=== PATIENT | female | born 1945 | race Caucasian/White ===

== ENCOUNTER → 2017-08-17 10:20 | Outpatient (CLI) | payer MEDICARE, OTHER, SELFPAY ==
--- NOTE | 2017-08-17 | DI.MG.S_ITS ---
BILATERAL DIGITAL SCREENING MAMMOGRAM 3D/2D WITH CAD: 08/17/2017 CLINICAL: Routine screening. Family history of breast cancer. Comparison is made to exams dated: 08/02/2016 mammogram, 12/01/2014 mammogram, and 11/28/2013 mammogram - [facility]. There are scattered fibroglandular elements in both breasts. Current study was also evaluated with a Computer Aided Detection (CAD) system. No significant masses, calcifications, or other findings are seen in either breast. There has been no significant interval change. IMPRESSION: NEGATIVE There is no mammographic evidence of malignancy. A 1 year screening mammogram is recommended. This exam was interpreted at Station ID: [id number]. NOTE: For mammograms, a report in lay terms will be sent to the patient. Approximately 15% of breast malignancies will not be visualized mammographically. In the management of a palpable breast mass, a negative mammogram must not discourage biopsy of a clinically suspicious lesion. Electronically Signed By: Nahid charles/cheryl:08/17/2017 12:59:36 letter sent: Normal Exam ACR BI-RADS Category 1: Negative [id number]
== END ==
PROVIDERS: PCP Family Medicine; Visit Provider Family Medicine
DX: Z12.31 Encounter for screening mammogram for malignant neoplasm of breast (principal); Z80.3 Family history of malignant neoplasm of breast
CPT/HCPCS: 77063; 77067

== ENCOUNTER → 2017-08-21 11:37 | Outpatient (CLI) | payer MEDICARE, OTHER, SELFPAY | PROVIDERS: PCP Family Medicine; Visit Provider Physician Assistant Medical | DX: T78.3XXA Angioneurotic edema, initial encounter (principal) | CPT/HCPCS: 36415; 86160 ==

== ENCOUNTER → 2017-09-25 10:28 | Outpatient (CLI) | payer MEDICARE, OTHER, SELFPAY | PROVIDERS: PCP Family Medicine; Visit Provider Physician Assistant | DX: L81.4 Other melanin hyperpigmentation (principal); Z71.89 Other specified counseling; L30.9 Dermatitis, unspecified; B00.1 Herpesviral vesicular dermatitis; L57.0 Actinic keratosis; X32.XXXA Exposure to sunlight, initial encounter | CPT/HCPCS: 36415; 87529 ==

== ENCOUNTER → 2018-03-20 11:37 | Outpatient (CLI) | payer MEDICARE, OTHER, SELFPAY ==
[2018-03-20 12:56] LABS: BUN Creatinine Ratio 33.3 (6-22); Blood Urea Nitrogen 20 mg/dL (7-17); Calcium 10.3 mg/dL (8.4-10.2); Carbon Dioxide 31 mmol/L (22-32); Chloride 97 mmol/L (98-107); Estimated Glomerular Filt Rate > 60.0 mL/min (>60); Glucose 90 mg/dL (80-110); HEMOLYSIS < 15 (0-50); Potassium 5.3 mmol/L (3.4-5.1); Sodium 134 mmol/L (137-145)
[2018-03-20 13:13] LABS: Vitamin D 25 Hydroxy (D3) 39.2 ng/mL (30.0-100.0)
== END ==
PROVIDERS: PCP Student in an Organized Health Care Education/Training Program; Visit Provider Student in an Organized Health Care Education/Training Program
DX: E55.9 Vitamin D deficiency, unspecified (principal); E78.2 Mixed hyperlipidemia; Z79.1 Long term (current) use of non-steroidal anti-inflammatories (NSAID)
CPT/HCPCS: 36415; 80048; 82306

== ENCOUNTER → 2018-03-27 09:54 | Outpatient (CLI) | payer MEDICARE, OTHER, SELFPAY | PROVIDERS: PCP Student in an Organized Health Care Education/Training Program; Visit Provider Student in an Organized Health Care Education/Training Program | DX: Z13.820 Encounter for screening for osteoporosis (principal); M85.852 Other specified disorders of bone density and structure, left thigh; Z78.0 Asymptomatic menopausal state; E07.9 Disorder of thyroid, unspecified; Z12.11 Encounter for screening for malignant neoplasm of colon; Z91.89 Other specified personal risk factors, not elsewhere classified; Z79.899 Other long term (current) drug therapy | CPT/HCPCS: 77080; 82274 ==

== ENCOUNTER → 2018-09-02 11:53 | Outpatient (CLI) | payer MEDICARE, OTHER, SELFPAY ==
--- NOTE | 2018-09-02 | DI.MG.S_ITS ---
BILATERAL DIGITAL SCREENING MAMMOGRAM 3D/2D WITH CAD: 09/02/2018 CLINICAL: Routine screening. Family history of breast cancer. Comparison is made to exams dated: 08/17/2017 mammogram, 08/02/2016 mammogram, and 12/01/2014 mammogram - [facility]. There are scattered fibroglandular elements in both breasts. Current study was also evaluated with a Computer Aided Detection (CAD) system. No significant masses, calcifications, or other findings are seen in either breast. There has been no significant interval change. IMPRESSION: NEGATIVE There is no mammographic evidence of malignancy. A 1 year screening mammogram is recommended. This exam was interpreted at Station ID: [id number]. NOTE: For mammograms, a report in lay terms will be sent to the patient. Approximately 15% of breast malignancies will not be visualized mammographically. In the management of a palpable breast mass, a negative mammogram must not discourage biopsy of a clinically suspicious lesion. Electronically Signed By: Anisha villegas/cheryl:09/02/2018 17:34:04 letter sent: Normal Exam ACR BI-RADS Category 1: Negative [id number]
== END ==
PROVIDERS: PCP Student in an Organized Health Care Education/Training Program; Visit Provider Student in an Organized Health Care Education/Training Program
DX: Z12.31 Encounter for screening mammogram for malignant neoplasm of breast (principal); Z80.3 Family history of malignant neoplasm of breast
CPT/HCPCS: 77063; 77067

== ENCOUNTER → 2018-10-10 07:23 | Outpatient (CLI) | payer MEDICARE, OTHER, SELFPAY ==
[2018-10-10 09:23] LABS: Alanine Aminotransferase 14 IU/L (9-52); Albumin 3.8 g/dL (3.5-5.0); Albumin Globulin Ratio 1.2 (1.0-2.8); Alkaline Phosphatase 68 U/L (38-126); Aspartate Aminotransferase 25 IU/L (14-36); Bilirubin Total 0.4 mg/dL (0.2-1.3); Blood Urea Nitrogen 16 mg/dL (7-17); Calcium 9.3 mg/dL (8.4-10.2); Carbon Dioxide 27 mmol/L (22-32); Chloride 97 mmol/L (98-107); Cholesterol 194 mg/dL (140-199); Estimated Glomerular Filt Rate > 60.0 mL/min (>60); Globulin 3.1 g/dL (1.7-4.1); Glucose 86 mg/dL (80-110); HDL Cholesterol 82 mg/dL (40-60); HEMOLYSIS < 15 (0-50); LDL Cholesterol Calculated 97 mg/dL (<100); Potassium 3.6 mmol/L (3.4-5.1); Sodium 135 mmol/L (137-145); Total Protein 6.9 g/dL (6.3-8.2); Triglycerides 73 mg/dL (35-150)
== END ==
PROVIDERS: PCP Student in an Organized Health Care Education/Training Program; Visit Provider Internal Medicine Cardiovascular Disease
DX: E78.00 Pure hypercholesterolemia, unspecified (principal)
CPT/HCPCS: 36415; 80053; 80061

== ENCOUNTER → 2019-01-06 10:05 | Outpatient (CLI) | payer MEDICARE, OTHER, SELFPAY ==
--- NOTE | 2019-01-06 | DI.MRI.S_ITS ---
PROCEDURE: MR BRAIN (IAC) WWO CON INDICATIONS: Right sided hearing loss. Tinnintis TECHNIQUE: Noncontrast sagittal T1 spin echo, axial FLAIR, axial gradient echo, axial diffusion and ADC through the brain. Axial thin-slice 3D CISS, coronal TruFISP, axial T1 spin echo with fat saturation through the internal auditory canals. After the administration of contrast, thin slice axial and coronal T1 spin echo with fat saturation through the internal auditory canals, and axial T1 spin echo with fat saturation through the brain. COMPARISON: None. FINDINGS: Image quality: Excellent. Cerebellopontine angles: No cerebellopontine angle masses. Inner ear structures appear normally formed. No suspicious enhancement in the internal auditory canal or along the course of the 7th cranial nerve. CSF spaces: Ventricles are normal in size and shape. No extra-axial fluid collections. Basal cisterns are patent. Brain: No intracranial bleeds or mass effects. Scattered small white matter changes, probably represent chronic microvascular ischemic disease, versus statistically less likely demyelination or other infectious, inflammatory, neurodegenerative etiology, technically nonspecific. As Ortiz-white matter interface is intact. No abnormal intracranial enhancement. Diffusion weighted images demonstrate no acute ischemic insults. Brainstem appears normal. Normal intravascular flow voids are present. Skull and face: Calvarial marrow signal is normal. Orbits appear normal. Sinuses: Sinuses and mastoids are clear. IMPRESSION: No discrete mass or suspicious abnormal enhancement involving the IAC or cerebellopontine angles bilaterally. Dictated by: Sandoval Hutchinson M.D. on 01/06/2019 at 11:31 Approved by: Sandoval Hutchinson M.D. on 01/06/2019 at 11:37
== END ==
PROVIDERS: PCP Student in an Organized Health Care Education/Training Program; Visit Provider Otolaryngology Facial Plastic Surgery
DX: H93.13 Tinnitus, bilateral (principal); H90.5 Unspecified sensorineural hearing loss
CPT/HCPCS: 70553; A9579

== ENCOUNTER → 2019-09-22 07:16 | Outpatient (CLI) | payer MEDICARE, OTHER, SELFPAY ==
[2019-09-22 08:35] LABS: BUN Creatinine Ratio 26.3 (6-22); Blood Urea Nitrogen 15 mg/dL (7-17); Calcium 9.7 mg/dL (8.4-10.2); Carbon Dioxide 30 mmol/L (22-32); Chloride 95 mmol/L (98-107); Estimated Glomerular Filt Rate > 60.0 mL/min (>60); Glucose 90 mg/dL (80-110); HEMOLYSIS < 15 (0-50); Potassium 5.3 mmol/L (3.4-5.1); Sodium 132 mmol/L (137-145)
== END ==
PROVIDERS: PCP Student in an Organized Health Care Education/Training Program; Referring Provider Student in an Organized Health Care Education/Training Program; Visit Provider Student in an Organized Health Care Education/Training Program
DX: E87.5 Hyperkalemia (principal); I10 Essential (primary) hypertension
CPT/HCPCS: 36415; 80048

== ENCOUNTER 2020-01-17 14:16 | Emergency (ER) | payer MEDICARE, OTHER, SELFPAY ==
[2020-01-17 14:20] VITALS: BP 168/82; PULSE 91; RESP 18; TEMP 37.1; O2SAT 99
--- NOTE | 2020-01-17 14:30 | DI.RAD.S_ITS ---
PROCEDURE: XR CHEST 1V INDICATIONS: chest pain TECHNIQUE: One view of the chest was acquired. COMPARISON: [facility], , CHEST 1 VIEW, 01/03/2016, 9:43. FINDINGS: Surgical changes and devices: None. Lungs and pleura: Lungs are clear. No pleural effusions or pneumothorax. Mediastinum: Moderate hiatal hernia. Mediastinal contours otherwise appear normal. Heart size is normal. Bones and chest wall: No suspicious bony lesions. Overlying soft tissues appear unremarkable. IMPRESSION: No acute process. Hiatal hernia. Dictated by: Lc Barroso M.D. on 01/17/2020 at 14:43 Approved by: Lc Barroso M.D. on 01/17/2020 at 14:43
--- NOTE | 2020-01-17 14:36 | ED.ARRPALP ---
HPI - Arrhythmia/Palpitations General Chief Complaint: Arrhythmia/Palpitations Stated Complaint: NAUSEATED, LOW PULSE, BACK PAIN Time Seen by Provider: 01/17/20 14:19 History of Present Illness HPI narrative: 74-year-old woman with a history of hypertension and prior irregular heart rate, hyperlipidemia, reflux, hypothyroidism and arthritis presents with a was out of symptoms that are concerning her. The symptoms are waxing and waning and include weakness while she was walking 1st noticed last Sunday the following day she felt fine. She is noticing a significantly bloated abdomen and decreased appetite decreased intake but has gained a couple of lb. She notes a retic blood pressures and pulse however oxygen saturations have remained above 95%. She states that she is not short of breath however she is mildly dyspneic with her history. Today she is feeling more nauseated and of fluttery feeling in the upper portion of her chest without any overt chest pain or abdominal pain. She does not report fevers, chills, wheezes, orthopnea or lower extremity edema. No vomiting, no diarrhea no abdominal pain. Yesterday she describes some pressure in her head neck, she does note a history of migraines and has not had as many headaches recently. She notes that she has chronic neck and left arm pain so has not associated any left arm pain with any of the other symptoms of which she is complaining. Related Data Previous Rx's Medication Instructions Recorded levothyroxine 100 mcg tablet 100 mcg PO QDAY #90 tab 02/21/19 meloxicam 7.5 mg tablet 7.5 mg PO DAILY PRN #90 tab 02/21/19 uaeplksvqq-hierhswnfksdc-fvcwaqfv 2 tab PO QDAY PRN #30 tab 03/11/19 50 mg-325 mg-40 mg tablet chlorthalidone 25 mg tablet 25 mg PO DAILY #90 tab 03/11/19 omeprazole 40 mg capsule,delayed 40 mg PO DAILY #90 cap 03/11/19 release simvastatin 10 mg tablet 10 mg PO HS #90 tab 03/11/19 verapamil 180 mg tablet,extended 360 mg PO DAILY #180 tab 03/11/19 release metoprolol tartrate 12.5 mg PO .BID prn #30 tab 01/17/20 Allergies Allergy/AdvReac Type Severity Reaction Status Date / Time No Known Drug Allergies Allergy Verified 03/11/19 10:01 Review of Systems Review of Systems Narrative: Remainder of review of systems including constitutional, ENT, cardiovascular, respiratory, GI, , musculoskeletal, skin, neurologic and psychiatric systems reviewed and are unremarkable except as noted in HPI. Patient History Medical History Actinic keratosis Diverticular disease Gluten enteropathy Hyperlipidemia Hypertension Hypothyroidism Migraines Surgical History Status post endoscopy (06/19/13) Status post ovarian cystectomy (~1969) Family History Mother No problems noted. Social History marital status: education level: college occupational status: other (retired) Smoking Status: Never smoker Smoking Status: Never smoker Exam Narrative Exam Narrative: General: Healthy appearing, mildly anxious but in no acute distress. Able to give a complete and coherent history. Well-nourished well-developed HEENT: Moist mucous membranes, normal sclera with reactive pupils, Neck: No JVD, supple Respiratory: Lungs are clear to auscultation, no wheezing no rales no rhonchi. Full and symmetrical air movement Cardiac: Irregular rhythm no murmurs no bruits Abdomen: Soft, nontender, report of nondistended, good bowel tones, no flank pain Skin: Warm and dry, no rashes Neurologic: Grossly neurologically intact with no obvious asymmetries or abnormalities Extremities: No trauma, well perfused, no lower extremity edema Psych: Cooperative, appropriate insight and affect Initial Vital Signs Initial Vital Signs: Vital Signs Temperature 98.7 F 01/17/20 14:20 Pulse Rate 91 H 01/17/20 14:20 Respiratory Rate 18 01/17/20 14:20 Blood Pressure 168/82 H 01/17/20 14:20 Pulse Oximetry 99 01/17/20 14:20 Course Orders Ordered: ED Orders 01/17/20 14:29 Complete Blood Count AUTO DIFF Stat Comprehensive Metabolic Panel Stat D Dimer Stat Lipase Stat Magnesium Stat NT-proBNP (BNP-Adult 18+) Stat Partial Thromboplastin Time Stat Prothrombin Time INR Stat Thyroid Stimulating Hormone Stat Troponin & CK Cardiac Panel Stat 01/17/20 14:30 XR chest 1V Stat COVID19 Stat EKG-12 Lead Stat Discontinued Medications Metoprolol Tartrate (Metoprolol Ir 25 Mg Tablet) 12.5 mg PO NOW ONE Stop: 01/17/20 16:11 Vital Signs Vital signs: Vital Signs - 8 hr 01/17/20 14:20 Temperature 98.7 F Pulse Rate 91 H Respiratory Rate 18 Blood Pressure 168/82 H Pulse Oximetry 99 MDM - Arrhythmia/Palpitations Medical Records Attestation: I reviewed the patient's medical records. Lab Data Attestation: I reviewed the patient's lab results. Result diagrams: 01/17/20 14:29 01/17/20 14:29 Labs: Lab Results 01/17/20 01/17/20 01/17/20 Range/Units 14:29 14:29 14:29 WBC 9.8 (4.5-11.0) X10^3/uL RBC 4.41 (4.0-5.2) X10^6/uL Hgb 13.5 (12.0-16.0) g/dL Hct 41.6 (36-46) % MCV 94.3 (80-100) fL MCH 30.7 (26-34) PG MCHC 32.6 (30-36) % RDW 13.1 (11.6-14.8) % Plt Count 274 (150-400) X10^3/uL Neut % (Auto) 63.0 (50-75) % Lymph % (Auto) 25.1 (25-40) % [place] % (Auto) 7.9 (3-14) % Eos % (Auto) 3.4 (2-4) % Baso % (Auto) 0.6 (0-2) % Neut # (Auto) 6100 (5024-5927) /uL Lymph # (Auto) 2400 (0745-8303) /uL Miffl[place] # (Auto) 800 (0-900) /uL Eos # (Auto) 300 (0-450) /uL Baso # (Auto) 100 (0-100) /uL PT 11.5 (10.1-12.7) SECONDS INR 1.0 (0.9-1.3) APTT 29 (26.4-36.2) SECONDS D-Dimer (<230) ng/mL Sodium 130 L (137-145) mmol/L Potassium 5.3 H (3.4-5.1) mmol/L Chloride 100 (98-107) mmol/L Carbon Dioxide 21 L (22-32) mmol/L BUN 19 H (7-17) mg/dL Creatinine 0.69 (0.52-1.04) mg/dL Estimated GFR > 60.0 (>60) mL/min BUN/Creatinine Ratio 27.5 H (6-22) Glucose 118 H (80-110) mg/dL Calcium 9.7 (8.4-10.2) mg/dL Magnesium (1.6-2.3) mg/dL Total Bilirubin 1.1 (0.2-1.3) mg/dL AST 49 H (14-36) IU/L ALT 22 (<35) IU/L Alkaline Phosphatase 66 (38-126) U/L Total Creatine Kinase 99 (30-135) U/L CK-MB (CK-2) TNP CK-MB (CK-2) Rel Index TNP Troponin I < 0.012 (0.01-0.034) ng/mL NT-Pro-B Natriuret Pep (<450) pg/mL Total Protein 8.1 (6.3-8.2) g/dL Albumin 4.7 (3.5-5.0) g/dL Globulin 3.4 (1.7-4.1) g/dL Albumin/Globulin Ratio 1.4 (1.0-2.8) Lipase 81 (23-300) U/L TSH (0.47-4.68) uIU/mL COVID-19 PCR (Negative) 01/17/20 01/17/20 01/17/20 Range/Units 14:29 14:29 14:29 WBC (4.5-11.0) X10^3/uL RBC (4.0-5.2) X10^6/uL Hgb (12.0-16.0) g/dL Hct (36-46) % MCV (80-100) fL MCH (26-34) PG MCHC (30-36) % RDW (11.6-14.8) % Plt Count (150-400) X10^3/uL Neut % (Auto) (50-75) % Lymph % (Auto) (25-40) % [place]fl[place] % (Auto) (3-14) % Eos % (Auto) (2-4) % Baso % (Auto) (0-2) % Neut # (Auto) (1239-1059) /uL Lymph # (Auto) (6219-4271) /uL Mifflin # (Auto) (0-900) /uL Eos # (Auto) (0-450) /uL Baso # (Auto) (0-100) /uL PT (10.1-12.7) SECONDS INR (0.9-1.3) APTT (26.4-36.2) SECONDS D-Dimer < 200 (<230) ng/mL Sodium (137-145) mmol/L Potassium (3.4-5.1) mmol/L Chloride (98-107) mmol/L Carbon Dioxide (22-32) mmol/L BUN (7-17) mg/dL Creatinine (0.52-1.04) mg/dL Estimated GFR (>60) mL/min BUN/Creatinine Ratio (6-22) Glucose (80-110) mg/dL Calcium (8.4-10.2) mg/dL Magnesium (1.6-2.3) mg/dL Total Bilirubin (0.2-1.3) mg/dL AST (14-36) IU/L ALT (<35) IU/L Alkaline Phosphatase (38-126) U/L Total Creatine Kinase (30-135) U/L CK-MB (CK-2) CK-MB (CK-2) Rel Index Troponin I (0.01-0.034) ng/mL NT-Pro-B Natriuret Pep 631 H (<450) pg/mL Total Protein (6.3-8.2) g/dL Albumin (3.5-5.0) g/dL Globulin (1.7-4.1) g/dL Albumin/Globulin Ratio (1.0-2.8) Lipase (23-300) U/L TSH 2.51 (0.47-4.68) uIU/mL COVID-19 PCR (Negative) 01/17/20 01/17/20 Range/Units 14:29 14:30 WBC (4.5-11.0) X10^3/uL RBC (4.0-5.2) X10^6/uL Hgb (12.0-16.0) g/dL Hct (36-46) % MCV (80-100) fL MCH (26-34) PG MCHC (30-36) % RDW (11.6-14.8) % Plt Count (150-400) X10^3/uL Neut % (Auto) (50-75) % Lymph % (Auto) (25-40) % Mifflin % (Auto) (3-14) % Eos % (Auto) (2-4) % Baso % (Auto) (0-2) % Neut # (Auto) (5728-8604) /uL Lymph # (Auto) (4743-2046) /uL Mifflin # (Auto) (0-900) /uL Eos # (Auto) (0-450) /uL Baso # (Auto) (0-100) /uL PT (10.1-12.7) SECONDS INR (0.9-1.3) APTT (26.4-36.2) SECONDS D-Dimer (<230) ng/mL Sodium (137-145) mmol/L Potassium (3.4-5.1) mmol/L Chloride (98-107) mmol/L Carbon Dioxide (22-32) mmol/L BUN (7-17) mg/dL Creatinine (0.52-1.04) mg/dL Estimated GFR (>60) mL/min BUN/Creatinine Ratio (6-22) Glucose (80-110) mg/dL Calcium (8.4-10.2) mg/dL Magnesium 1.9 (1.6-2.3) mg/dL Total Bilirubin (0.2-1.3) mg/dL AST (14-36) IU/L ALT (<35) IU/L Alkaline Phosphatase (38-126) U/L Total Creatine Kinase (30-135) U/L CK-MB (CK-2) CK-MB (CK-2) Rel Index Troponin I (0.01-0.034) ng/mL NT-Pro-B Natriuret Pep (<450) pg/mL Total Protein (6.3-8.2) g/dL Albumin (3.5-5.0) g/dL Globulin (1.7-4.1) g/dL Albumin/Globulin Ratio (1.0-2.8) Lipase (23-300) U/L TSH (0.47-4.68) uIU/mL COVID-19 PCR Negative (Negative) Imaging Data Chest x-ray: Radiologist's Impresson: FINDINGS: Surgical changes and devices: None. Lungs and pleura: Lungs are clear. No pleural effusions or pneumothorax. Mediastinum: Moderate hiatal hernia. Mediastinal contours otherwise appear normal. Heart size is normal. Bones and chest wall: No suspicious bony lesions. Overlying soft tissues appear unremarkable. IMPRESSION: No acute process. Hiatal hernia. Dictated by: Lc Barroso M.D. on 01/17/2020 at 14:43 ECG Data Attestation: I personally reviewed and interpreted this ECG as follows: Interpretation: Underlying rhythm is sinus at a rate of 84 Frequent PVCs, episodes of bigeminy, PVC triplets Nonspecific ST T wave changes Normal axis No acute ischemia MDM Narrative Medical decision making narrative: 72-year-old woman with 2 weeks of increasing palpitations. EKG shows frequent PVCs but no life-threatening abnormalities. No evidence of infection, significant failure, ischemic cardiac issues or acute coronary syndrome, no renal failure and no evidence of pulmonary embolism. Potassium was slightly elevated however renal function was reassuring and she is on chlorthalidone. Will have her add 12.5 mg of metoprolol tartrate b.i.d. as needed to control palpitations. We did review side effects of hypotension and bradycardia and she does have follow-up with her primary care physician scheduled later this week. She is safe for home discharge Discharge Plan Departure Patient Disposition: Home Clinical Impression: Palpitations Instructions: DI for Palpitations Activity Restrictions/Additional Instructions: Thank you for coming in today Your workup was very reassuring. You are having very frequent PVCs (premature ventricular contractions). This is not a life-threatening heart rhythm problem. It can be distracting and certainly cause the fluttery feeling you are experiencing. I am going to suggest that you use half a pill, 12.5 mg, of metoprolol, a beta-candie, to suppress the frequent PVCs. You can take this twice a day if your having frequent PVCs. If your feeling great you do not need to take it. It is a blood pressure medications so if you find that your blood pressure or your heart rate is too slow please do not continue this. Please discuss this with Dr. carmona with your follow-up appointment next week. With your workup I found no evidence of heart attack,, heart failure, kidney failure liver failure or other issues that need to be addressed. Your thyroid level is in the appropriate ranges. Please feel free to return if your having any chest pain, nausea, dizziness and if you have any more of that weakness that you felt 2 weeks ago it would be appropriate to return to the emergency room to have an EKG done in see if you are in a different type of heart rhythm. I hope you feel better. Prescriptions: New metoprolol tartrate 25 mg tablet 12.5 mg PO .BID prn Qty: 30 RF: 0 No Action meloxicam [Mobic] 7.5 mg tablet 7.5 mg PO DAILY PRN (Reason: pain) Qty: 90 RF: 3 levothyroxine 100 mcg tablet 100 mcg PO QDAY Qty: 90 RF: 3 omeprazole 40 mg capsule,delayed release(DR/EC) 40 mg PO DAILY Qty: 90 RF: 3 simvastatin 10 mg tablet 10 mg PO HS Qty: 90 RF: 3 chlorthalidone 25 mg tablet 25 mg PO DAILY Qty: 90 RF: 3 verapamil 180 mg tablet extended release 360 mg PO DAILY Qty: 180 RF: 3 pavwnsbaah-eblguoblvclcg-lqcy 50-325-40 mg tablet 2 tab PO QDAY PRN (Reason: pain) Qty: 30 RF: 5 Referrals: Raffy Marrero MD [Primary Care Provider] -
[2020-01-17 14:39] LABS: Add Manual Diff / Slide Review NO; Basophils Absolute Auto 100 /uL (0-100); Basophils Percent Auto 0.6 % (0-2); Eosinophils Absolute Auto 300 /uL (0-450); Eosinophils Percent Auto 3.4 % (2-4); Hematocrit 41.6 % (36-46); Hemoglobin 13.5 g/dL (12.0-16.0); Lymphocytes Absolute Auto 2400 /uL (1100-4500); Lymphocytes Percent Auto 25.1 % (25-40); Mean Corpuscular HGB Conc 32.6 % (30-36); Mean Corpuscular Hemoglobin 30.7 PG (26-34); Mean Corpuscular Volume 94.3 fL (80-100); Monocytes Absolute Auto 800 /uL (0-900); Monocytes Percent Auto 7.9 % (3-14); Neutrophils Absolute Auto 6100 /uL (1500-7000); Platelet Count 274 X10^3/uL (150-400); Red Blood Cell Count 4.41 X10^6/uL (4.0-5.2); Red Cell Distribution Width 13.1 % (11.6-14.8); White Blood Cell Count 9.8 X10^3/uL (4.5-11.0)
[2020-01-17 15:01] LABS: NT-proBNP (BNP-Adult 18+) 631 pg/mL (<450)
[2020-01-17 15:04] LABS: Troponin I < 0.012 ng/mL (0.01-0.034)
[2020-01-17 15:07] LABS: COVID19 -Nasal RAPID Negative (Negative)
[2020-01-17 15:13] LABS: D Dimer < 200 ng/mL (<230)
[2020-01-17 15:20] LABS: Prothrombin Time 11.5 SECONDS (10.1-12.7)
[2020-01-17 15:23] LABS: PTT Partial Thromboplastin Tim 29 SECONDS (26.4-36.2)
[2020-01-17 15:27] LABS: Alanine Aminotransferase 22 IU/L (<35); Albumin 4.7 g/dL (3.5-5.0); Albumin Globulin Ratio 1.4 (1.0-2.8); Alkaline Phosphatase 66 U/L (38-126); Aspartate Aminotransferase 49 IU/L (14-36); BUN Creatinine Ratio 27.5 (6-22); Bilirubin Total 1.1 mg/dL (0.2-1.3); Blood Urea Nitrogen 19 mg/dL (7-17); Calcium 9.7 mg/dL (8.4-10.2); Carbon Dioxide 21 mmol/L (22-32); Chloride 100 mmol/L (98-107); Creatine Kinase 99 U/L (30-135); Estimated Glomerular Filt Rate > 60.0 mL/min (>60); Globulin 3.4 g/dL (1.7-4.1); Glucose 118 mg/dL (80-110); HEMOLYSIS 218 (0-50); Lipase 81 U/L (23-300); Potassium 5.3 mmol/L (3.4-5.1); Sodium 130 mmol/L (137-145); Total Protein 8.1 g/dL (6.3-8.2)
[2020-01-17 15:28] LABS: Magnesium 1.9 mg/dL (1.6-2.3)
[2020-01-17 15:31] LABS: Thyroid Stimulating Hormone 2.51 uIU/mL (0.47-4.68)
[2020-01-17] MEDS: METOPROLOL IR 25 MG TABLET 12.5 MG PO (16:20)
[2020-01-17 16:34] VITALS: BP 142/81; PULSE 69; RESP 14; O2SAT 95
== END 2020-01-17 16:43 | disposition home or self-care (01) ==
PROVIDERS: Emergency Provider Emergency Medicine; PCP Student in an Organized Health Care Education/Training Program
DX: R00.2 Palpitations (principal); E87.5 Hyperkalemia; I10 Essential (primary) hypertension; E78.5 Hyperlipidemia, unspecified; K21.9 Gastro-esophageal reflux disease without esophagitis; E03.9 Hypothyroidism, unspecified; R11.0 Nausea; R07.9 Chest pain, unspecified
CPT/HCPCS: 36415; 71045; 80053; 82550; 83690; 83735; 83880; 84443; 84484; 85025; 85379; 85610; 85730; 87635; 93005; 99283; 99284

== ENCOUNTER → 2020-02-19 07:55 | Outpatient (CLI) | payer MEDICARE, OTHER, SELFPAY ==
--- NOTE | 2020-02-19 07:56 | DI.ECHO.S_ITS ---
Version: 1 Study ID: [id number] [place] [address] Name: JOANN HERBRET Study Date: 02/19/2020, 8: 16 AM : 1945 BP: 167 / 110 mmHg Gender: Female Height: 67 in Age: 74 Years Weight: 160 lb BSA: 1.84 mA? Ordering: LINA BROWN Referring: LINA BROWN Clinician: Chyna Garay Reason For Study: VOLUME OVERLOAD History: Summary Statements Normal sinus rhythm with occasional PVC's. Normal LV size, wall thickness. Mild global hypokinesis. EF is 45-50%. Stage II diastolic dysfunction. Mild LA enlargement; otherwise normal chamber sizes. No significant valvular abnormalities. Compared to prior study in 2016 cardiomyopathy is new. Procedure: A two-dimensional transthoracic echocardiogram with color flow and Doppler was performed. The study quality was technically adequate. Comparison is made with the echocardiogram of 12/15/2015. The patient was in sinus rhythm with heart rates between 64-84 bpm during the exam. Left Ventricle: The left ventricle is normal in size and wall thickness. The ejection fraction is estimated to be 45-50%. Diastolic parameters suggest a pseudonormalization pattern, consistent with probable elevated filling pressures. Right Ventricle: The right ventricle is normal in size and function. Atria: The left atrium is mildly dilated. Right atrial size is normal. There is no Doppler evidence for an interatrial shunt. Mitral Valve: There is mild mitral annular calcification. The mitral valve leaflets appear mildly thickened, but open well. There is mild to moderate mitral regurgitation. Aortic Valve: The aortic valve is trileaflet. The aortic valve opens well. There is no aortic valve stenosis. There is mild aortic regurgitation. Tricuspid Valve: The tricuspid valve is normal in structure and function. There is mild tricuspid regurgitation. The right ventricular systolic pressure is estimated to be at least 40 mmHg based on an estimated right atrial pressure of 3 mm Hg. Pulmonic Valve: The pulmonic valve leaflets are thin and pliable; valve motion is normal. There is trace pulmonic regurgitation. Great Vessels: The aortic root is normal size. The ascending aorta is mildly enlarged. The IVC is of normal diameter and collapses greater than 50% with a sniff. This suggests a low right atrial pressure of 3 mm Hg. Pericardium/ Pleura: There is no pericardial effusion. There is no pleural effusion. 2D and M-Mode Measurements and Calculations LVIDd: 5.3 cm LVOT diam: 2.05 cm LVIDs: 4.0 cm Ao root diam: 3.6 cm IVSd: 0.82 cm asc Aorta Diam: 3.5 cm LVPWd: 0.77 cm Ao Arch Diam (Prox Trans): 3.3 cm LV miller. diameter/BSA (cm/m^2): 2.9 LV sys. diameter/BSA (cm/m^2): 2.16 EPSS: 0.83 cm RVD1 (basal): 3.0 cm IVC diam: 1.44 cm TAPSE: 2.00 cm LA A4 area: 18.6 awake overnight counselor? RA area: 19.6 awake overnight counselor? LA A2 area: 23.6 awake overnight counselor? RA long axis: 5.6 cm LA length (vol): 4.8 cm RA vol: 57.8 ml LA vol: 77.8 ml RA : 31.5 ml/mA? LA vol index: 42.3 ml/mA? Doppler Measurements and Calculations Ao V2 max: 108.7 cm/sec LVOT Max Gael: 81.9 cm/sec Ao V2 mean: 76.8 cm/sec LV V1 max P.7 mmHg Ao V2 VTI: 21.9 cm LV V1 VTI: 17.8 cm Ao max P.7 mmHg Ao mean P.7 mmHg GREG(I,D): 2.7 awake overnight counselor? GREG(V,D): 2.49 awake overnight counselor? GREG indexed to BSA (cm^2/m^2): 1.46 sev ratio: 0.81 MV E max gael: 67.0 cm/sec MV dec time: 0.17 sec MV A max gael: 92.8 cm/sec MV E/A: 0.72 Med Peak E' Gael: 3.3 cm/sec Lat Peak E' Gael: 4.1 cm/sec E/e' average: 18.1 TR max gael: 304.2 cm/sec PA V2 max: 47.7 cm/sec TR max P.0 mmHg PA mean P.48 mmHg Electronically signed by: Patti Perez M.D. 02/20/2020, 12: 59 AM
== END ==
PROVIDERS: PCP Student in an Organized Health Care Education/Training Program; Referring Provider Student in an Organized Health Care Education/Training Program; Visit Provider Student in an Organized Health Care Education/Training Program
DX: I08.3 Combined rheumatic disorders of mitral, aortic and tricuspid valves (principal); I77.89 Other specified disorders of arteries and arterioles; E87.70 Fluid overload, unspecified
CPT/HCPCS: 93306

== ENCOUNTER → 2020-02-25 13:17 | Outpatient (CLI) | payer MEDICARE, OTHER, SELFPAY ==
[2020-02-25 13:26] LABS: Bacteria Urine None Seen
[2020-02-25 14:05] LABS: Appearance Urine UA CLEAR; Bilirubin Urine UA NEGATIVE (NEGATIVE); Color Urine UA YELLOW; Glucose Urine UA NEGATIVE (Negative); Ketones Urine UA NEGATIVE (NEGATIVE); Leukocyte Esterase Urine UA NEGATIVE (NEGATIVE); Nitrite Urine UA NEGATIVE (Negative); Occult Blood Urine UA NEGATIVE (Negative); Protein Urine UA NEGATIVE (Negative); Urobilinogen Urine UA 0.2 E.U./dL (0.2)
[2020-02-25 14:20] LABS: Culture Indicated Urine Cult Not Indicated; RBC Urine 0-1/HPF (0-5/HPF); WBC Urine 0-1/HPF (0-5/HPF)
== END ==
PROVIDERS: PCP Student in an Organized Health Care Education/Training Program; Referring Provider Student in an Organized Health Care Education/Training Program; Visit Provider Student in an Organized Health Care Education/Training Program
DX: R39.15 Urgency of urination (principal)
CPT/HCPCS: 81001

== ENCOUNTER → 2020-02-27 07:36 | Outpatient (CLI) | payer MEDICARE, OTHER, SELFPAY ==
--- NOTE | 2020-02-27 07:37 | DI.US.S_ITS ---
PROCEDURE: US ABDOMEN COMPLETE INDICATIONS: ABDOMINAL DISTENTION TECHNIQUE: Real-time scanning was performed of the abdominal and retroperitoneal organs, with image documentation. COMPARISON: [facility], CT, ABDOMEN/PELVIS WITH CONTRAST, 11/08/2012, 10:59. [facility], US, US PELVIC COMPLETE, 02/27/2020, 8:08. FINDINGS: Liver: Liver is normal in size. Several right liver simple cysts are seen, which measure up to 2.2 cm. Gallbladder: No findings of gallstones or sludge are seen. The gallbladder wall is not thickened, measuring 3 mm or less. No specific pericholecystic fluid is seen. The sonographic Cartwright sign is negative. Biliary ducts: Intrahepatic bile ducts are non-dilated. Extrahepatic bile duct caliber measures 3 mm. Normal is 6-7 mm or less in diameter, or 10 mm or less post-cholecystectomy. Pancreas: Visualized portions of the pancreas are sonographically normal. Spleen: Spleen is normal in size and homogeneous in echotexture. Kidneys: Kidneys are normal in size and echotexture. Right kidney measures 10.8 cm long; left kidney measures 10 cm long. No hydronephrosis or nephrolithiasis. No solid masses. The right kidney demonstrates a lobular appearance. Aorta: Visualized aorta is normal in caliber at less than 3 cm. Iliacs: Proximal common iliac arteries are normal in caliber at less than 2.5 cm. IVC: Intrahepatic inferior vena cava is patent. Miscellaneous: No free abdominal fluid. IMPRESSION: No imaging explanation is found for this patient's presenting symptoms. Incidental note is made of: Simple appearing right liver cysts Lobular appearing right kidney, without masses Dictated by: Lino Osman M.D. on 02/27/2020 at 9:43 Approved by: Lino Osman M.D. on 02/27/2020 at 9:45
--- NOTE | 2020-02-27 07:37 | DI.US.S_ITS ---
PROCEDURE: US PELVIC COMPLETE INDICATIONS: ABDOMINAL DISTENTION TECHNIQUE: Real-time scanning was performed of the pelvic organs, with image documentation. Additional endovaginal scanning was necessary due to incomplete visualization of the adnexal and endometrial structures by transabdominal scanning. COMPARISON: [facility], CT, ABDOMEN/PELVIS WITH CONTRAST, 11/08/2012, 10:59. [facility], US, US ABDOMEN COMPLETE, 02/27/2020, 8:07. FINDINGS: Transabdominal scanning: No pathologic free abdominal or pelvic fluid. On the accompanying abdominal ultrasound, the kidneys demonstrate a normal appearance. Endovaginal scanning: Uterus: Uterus is normal in size at 5.1 x 4.4 x 2.7 cm. The endometrium measures 3 mm in combined thickness. Incidental note is made of nabothian cysts. Ovaries: The right ovary measures 4.3 x 2.6 x 2.5 cm and demonstrates simple cysts that measure up to 1.4 cm. Normal appearing arterial and venous flow is confirmed to the right ovary. The left ovary has been removed. No adnexal masses are seen on either side. IMPRESSION: Unremarkable study for age, status post left oophorectomy. Dictated by: Lino Osman M.D. on 02/27/2020 at 9:45 Approved by: Lino Osman M.D. on 02/27/2020 at 9:47
== END ==
PROVIDERS: PCP Student in an Organized Health Care Education/Training Program; Referring Provider Student in an Organized Health Care Education/Training Program; Visit Provider Student in an Organized Health Care Education/Training Program
DX: I49.3 Ventricular premature depolarization (principal); E87.1 Hypo-osmolality and hyponatremia; R14.0 Abdominal distension (gaseous); E87.79 Other fluid overload; R10.9 Unspecified abdominal pain
CPT/HCPCS: 36415; 76700; 76830; 76856; 80048; 83930

== ENCOUNTER → 2020-02-27 08:53 | Outpatient (CLI) | payer MEDICARE, OTHER, SELFPAY ==
[2020-02-27 10:50] LABS: BUN Creatinine Ratio 21.9 (6-22); Blood Urea Nitrogen 16 mg/dL (7-17); Calcium 9.3 mg/dL (8.4-10.2); Carbon Dioxide 30 mmol/L (22-32); Chloride 99 mmol/L (98-107); Estimated Glomerular Filt Rate > 60.0 mL/min (>60); Glucose 89 mg/dL (80-110); HEMOLYSIS < 15 (0-50); Sodium 131 mmol/L (137-145)
[2020-03-01 16:43] LABS: Osmolality, Serum 282 mOsmol/kg (280-301)
== END ==
PROVIDERS: PCP Student in an Organized Health Care Education/Training Program; Referring Provider Student in an Organized Health Care Education/Training Program; Visit Provider Internal Medicine Cardiovascular Disease
DX: I49.3 Ventricular premature depolarization (principal); E87.1 Hypo-osmolality and hyponatremia
CPT/HCPCS: 36415; 80048; 83930

== ENCOUNTER → 2020-03-13 09:32 | Outpatient (CLI) | payer MEDICARE, OTHER, SELFPAY ==
[2020-03-13 10:43] LABS: COVID19 -Nasal RAPID Negative (Negative)
== END ==
PROVIDERS: PCP Student in an Organized Health Care Education/Training Program; Visit Provider Physician Assistant
DX: Z20.822 Contact with and (suspected) exposure to COVID-19 (principal)
CPT/HCPCS: 87635; C9803

== ENCOUNTER → 2020-03-26 09:33 | Outpatient (CLI) | payer MEDICARE, OTHER, SELFPAY | PROVIDERS: PCP Student in an Organized Health Care Education/Training Program; Referring Provider Student in an Organized Health Care Education/Training Program; Visit Provider Student in an Organized Health Care Education/Training Program | DX: Z13.820 Encounter for screening for osteoporosis (principal); M85.88 Other specified disorders of bone density and structure, other site; Z78.0 Asymptomatic menopausal state; E07.9 Disorder of thyroid, unspecified | CPT/HCPCS: 77080 ==

== ENCOUNTER → 2020-04-22 16:36 | Outpatient (CLI) | payer MEDICARE, OTHER, SELFPAY ==
--- NOTE | 2020-04-22 | DI.MRI.S_ITS ---
PROCEDURE: MR LUMBAR SPINE WO CON INDICATIONS: Radiculopathy, lumbar region TECHNIQUE: Noncontrast sagittal T1 spin echo and T2 fast echo, sagittal STIR, axial T1 and T2 fast spin echo through the lumbar spine. In cases with scoliosis, additional coronal T2 fast spin echo may be performed. COMPARISON: [facility], CT, ABDOMEN/PELVIS WITH CONTRAST, 11/08/2012, 10:59. [facility], MR, L-SPINE WITHOUT CONTRAST, 08/20/2012, 15:18. FINDINGS: Image quality: Excellent. Alignment and Curvature: 1/2 anterolisthesis of L4 on L5 measuring 9 mm, increased from 4 mm on prior exam. There is unchanged grade 1 retrolisthesis, ranging from 1-3 mm of L1 on L2, L2 on L3, L3 on L4 and grade 1 retrolisthesis, 2 mm of L5 on S1. Bone Marrow: Marrow is of normal overall signal. Moderate reactive endplate changes are present at L4-5 as well as mild at L2-3. Marrow changes at L4-5 are noted to surround endplate Schmorl's nodes. Additional Schmorl's nodes are noted at multilevel endplates most prominent at L2 and L3. No acute vertebral body compression fractures. Spinal Cord: Conus medullaris terminates at the L1 level. Visualized cord demonstrates normal signal and size. Paraspinous Soft Tissues: No paravertebral masses. Discs: Moderate to severe desiccation is present throughout the lumbar spine. L1-L2: Mild disc bulge without spinal stenosis. Mild left and moderate right foraminal narrowing with facet and ligamentum flavum hypertrophy. Minimal epidural lipomatosis. No appreciable interval change. L2-L3: Mild disc bulge with mild spinal stenosis. Moderate bilateral foraminal narrowing with slight interval progression particularly on the left compared to prior exam. Facet and ligamentum flavum hypertrophy are present with minimal epidural lipomatosis. L3-L4: Mild disc bulge with moderate spinal stenosis. Moderate bilateral foraminal narrowing, minimally progressive compared to prior exam. Facet and ligamentum flavum hypertrophy are present. L4-L5: Mild disc bulge with severe spinal stenosis and canal compression. Severe left and moderate to severe right foraminal narrowing, progressive on the right compared to prior exam. Facet and ligamentum flavum hypertrophy are present. L5-S1: Mild disc bulge with xuyg-wm-dqbdqoqz spinal stenosis, slightly progressive. There is moderate bilateral foraminal narrowing, slightly progressive with facet and ligamentum flavum hypertrophy. IMPRESSION: 1. Grade 1/2 anterolisthesis of L4 on L5, increased compared to prior exam. No definitive pars defect is identified. 2. Multilevel degenerative changes with minimal areas of interval progression noted above. 3. Multilevel foraminal narrowing most severe at L4-5 secondary to anterolisthesis as well as facet/ligamentum flavum arthropathy. Dictated by: Janette Barnes M.D. on 04/23/2020 at 10:34 Approved by: Janette Barnes M.D. on 04/23/2020 at 10:49
== END ==
PROVIDERS: PCP Student in an Organized Health Care Education/Training Program; Referring Provider Neurological Surgery; Visit Provider Neurological Surgery
DX: M47.26 Other spondylosis with radiculopathy, lumbar region (principal); M48.061 Spinal stenosis, lumbar region without neurogenic claudication; M43.16 Spondylolisthesis, lumbar region
CPT/HCPCS: 72148

== ENCOUNTER → 2020-05-17 07:15 | Outpatient (CLI) | payer MEDICARE, OTHER, SELFPAY ==
[2020-05-17 08:16] LABS: Cholesterol 263 mg/dL (140-199); HDL Cholesterol 87 mg/dL (40-60); LDL Cholesterol Calculated 155 mg/dL (<100); Triglycerides 105 mg/dL (35-150)
== END ==
PROVIDERS: PCP Student in an Organized Health Care Education/Training Program; Referring Provider Internal Medicine Cardiovascular Disease; Visit Provider Internal Medicine Cardiovascular Disease
DX: E78.00 Pure hypercholesterolemia, unspecified (principal)
CPT/HCPCS: 36415; 80061

== ENCOUNTER → 2020-07-05 16:39 | Outpatient (CLI) | payer MEDICARE, OTHER, SELFPAY ==
--- NOTE | 2020-07-05 | DI.MG.S_ITS ---
BILATERAL DIGITAL SCREENING MAMMOGRAM 3D/2D WITH CAD: 07/05/2020 CLINICAL: Routine screening. Family history of breast cancer. Comparison is made to exams dated: 09/02/2018 mammogram, 08/17/2017 mammogram, and 08/02/2016 mammogram - [facility]. There are scattered fibroglandular elements in both breasts. Current study was also evaluated with a Computer Aided Detection (CAD) system. No significant masses, calcifications, or other findings are seen in either breast. There has been no significant interval change. IMPRESSION: NEGATIVE There is no mammographic evidence of malignancy. A 1 year screening mammogram is recommended. This exam was interpreted at Station ID: [id number]. NOTE: For mammograms, a report in lay terms will be sent to the patient. Approximately 15% of breast malignancies will not be visualized mammographically. In the management of a palpable breast mass, a negative mammogram must not discourage biopsy of a clinically suspicious lesion. Electronically Signed By: Huey urias/cheryl:07/06/2020 07:38:42 letter sent: Normal Exam ACR BI-RADS Category 1: Negative [id number]
== END ==
PROVIDERS: PCP Student in an Organized Health Care Education/Training Program; Referring Provider Student in an Organized Health Care Education/Training Program; Visit Provider Student in an Organized Health Care Education/Training Program
DX: Z12.31 Encounter for screening mammogram for malignant neoplasm of breast (principal); Z80.3 Family history of malignant neoplasm of breast
CPT/HCPCS: 77063; 77067

== ENCOUNTER → 2020-08-04 08:38 | Outpatient (CLI) | payer MEDICARE, OTHER, SELFPAY | PROVIDERS: PCP Student in an Organized Health Care Education/Training Program; Visit Provider Physician Assistant | DX: N39.0 Urinary tract infection, site not specified (principal) | CPT/HCPCS: 87077; 87086; 87185; 87186 ==

== ENCOUNTER → 2020-08-23 07:22 | Outpatient (CLI) | payer MEDICARE, OTHER, SELFPAY ==
[2020-08-23 09:52] LABS: BUN Creatinine Ratio 41.5 (6-22); Blood Urea Nitrogen 22 mg/dL (7-17); Calcium 9.5 mg/dL (8.4-10.2); Carbon Dioxide 29 mmol/L (22-32); Chloride 97 mmol/L (98-107); Estimated Glomerular Filt Rate > 60.0 mL/min (>60); Glucose 89 mg/dL (80-110); HEMOLYSIS < 15 (0-50); Potassium 3.6 mmol/L (3.4-5.1); Sodium 133 mmol/L (137-145)
== END ==
PROVIDERS: PCP Student in an Organized Health Care Education/Training Program; Referring Provider Internal Medicine Cardiovascular Disease; Visit Provider Internal Medicine Cardiovascular Disease
DX: R00.2 Palpitations (principal); I49.3 Ventricular premature depolarization
CPT/HCPCS: 36415; 80048

== ENCOUNTER → 2020-09-13 14:27 | Outpatient (CLI) | payer MEDICARE, OTHER, SELFPAY ==
[2020-09-13 15:26] LABS: BUN Creatinine Ratio 44.2 (6-22); Blood Urea Nitrogen 23 mg/dL (7-17); Calcium 9.2 mg/dL (8.4-10.2); Carbon Dioxide 26 mmol/L (22-32); Chloride 98 mmol/L (98-107); Estimated Glomerular Filt Rate > 60.0 mL/min (>60); Glucose 101 mg/dL (80-110); HEMOLYSIS < 15 (0-50); Potassium 3.8 mmol/L (3.4-5.1); Sodium 130 mmol/L (137-145)
== END ==
PROVIDERS: PCP Student in an Organized Health Care Education/Training Program; Referring Provider Internal Medicine Cardiovascular Disease; Visit Provider Internal Medicine Cardiovascular Disease
DX: I49.3 Ventricular premature depolarization (principal)
CPT/HCPCS: 36415; 80048

== ENCOUNTER → 2020-10-26 07:35 | Outpatient (CLI) | payer MEDICARE, OTHER, SELFPAY ==
[2020-10-26 09:24] LABS: BUN Creatinine Ratio 35.8 (6-22); Blood Urea Nitrogen 19 mg/dL (7-17); Calcium 9.1 mg/dL (8.4-10.2); Carbon Dioxide 27 mmol/L (22-32); Chloride 98 mmol/L (98-107); Estimated Glomerular Filt Rate > 60.0 mL/min (>60); Glucose 93 mg/dL (80-110); HEMOLYSIS < 15 (0-50); Potassium 3.7 mmol/L (3.4-5.1); Sodium 130 mmol/L (137-145)
== END ==
PROVIDERS: PCP Student in an Organized Health Care Education/Training Program; Referring Provider Internal Medicine Cardiovascular Disease; Visit Provider Internal Medicine Cardiovascular Disease
DX: I10 Essential (primary) hypertension (principal)
CPT/HCPCS: 36415; 80048

== ENCOUNTER → 2021-01-13 07:07 | Outpatient (CLI) | payer MEDICARE, OTHER, SELFPAY ==
[2021-01-13 08:25] LABS: Sodium Urine Random 110 mmol/L (30-90)
[2021-01-13 08:27] LABS: BUN Creatinine Ratio 38.3 (6-22); Blood Urea Nitrogen 23 mg/dL (7-17); Calcium 9.3 mg/dL (8.4-10.2); Carbon Dioxide 26 mmol/L (22-32); Chloride 102 mmol/L (98-107); Estimated Glomerular Filt Rate > 60.0 mL/min (>60); Glucose 92 mg/dL (80-110); HEMOLYSIS < 15 (0-50); Magnesium 1.9 mg/dL (1.6-2.3); Potassium 4.7 mmol/L (3.4-5.1); Sodium 136 mmol/L (137-145)
== END ==
PROVIDERS: PCP Student in an Organized Health Care Education/Training Program; Referring Provider Student in an Organized Health Care Education/Training Program; Visit Provider Student in an Organized Health Care Education/Training Program
DX: I10 Essential (primary) hypertension (principal); E87.1 Hypo-osmolality and hyponatremia; T50.2X5A Adverse effect of carbonic-anhydrase inhibitors, benzothiadiazides and other diuretics, initial encounter
CPT/HCPCS: 36415; 80048; 83735; 84300

== ENCOUNTER → 2021-07-07 09:10 | Outpatient (CLI) | payer MEDICARE, OTHER, SELFPAY ==
[2021-07-07 12:10] LABS: Vitamin B12 Reflex MMA if <400 979 pg/mL (239-931)
== END ==
PROVIDERS: PCP Student in an Organized Health Care Education/Training Program; Referring Provider Student in an Organized Health Care Education/Training Program; Visit Provider Student in an Organized Health Care Education/Training Program
DX: E03.9 Hypothyroidism, unspecified (principal); K21.9 Gastro-esophageal reflux disease without esophagitis; R53.83 Other fatigue
CPT/HCPCS: 36415; 82607

== ENCOUNTER 2021-07-22 19:17 | Emergency (ER) | payer MEDICARE, OTHER, SELFPAY ==
[2021-07-22] VITALS (7 sets, daily range): BP systolic 132–179; BP diastolic 79–118; PULSE 82–94; RESP 18–22; TEMP 36.6; O2SAT 97–100; BMI 25.0
--- NOTE | 2021-07-22 19:35 | DI.RAD.S_ITS ---
PROCEDURE: XR CHEST 1V INDICATIONS: chest pain TECHNIQUE: One view of the chest was acquired. COMPARISON: [facility], CR, XR CHEST 1V, 01/17/2020, 14:31. FINDINGS: Surgical changes and devices: None. Lungs and pleura: Lungs are clear. No pleural effusions or pneumothorax. Mediastinum: There is a moderate-sized hiatal hernia. Heart size is normal. Bones and chest wall: No suspicious bony lesions. Overlying soft tissues appear unremarkable. IMPRESSION: 1. No acute cardiopulmonary disease. Dictated by: Ryan Harris M.D. on 07/22/2021 at 20:11 Approved by: Ryan Harris M.D. on 07/22/2021 at 20:11
[2021-07-22 19:54] LABS: Add Manual Diff / Slide Review NO; Basophils Absolute Auto 0 /uL (0-100); Basophils Percent Auto 0.6 % (0-2); Eosinophils Absolute Auto 300 /uL (0-450); Eosinophils Percent Auto 3.5 % (2-4); Hematocrit 26.9 % (36-46); Hemoglobin 8.5 g/dL (12.0-16.0); Lymphocytes Absolute Auto 2400 /uL (1100-4500); Lymphocytes Percent Auto 28.4 % (25-40); Mean Corpuscular HGB Conc 31.6 % (30-36); Mean Corpuscular Hemoglobin 24.4 PG (26-34); Mean Corpuscular Volume 77.4 fL (80-100); Monocytes Absolute Auto 800 /uL (0-900); Neutrophils Absolute Auto 4800 /uL (1500-7000); Neutrophils Percent Auto 57.5 % (50-75); Platelet Count 390 X10^3/uL (150-400); Red Blood Cell Count 3.47 X10^6/uL (4.0-5.2); White Blood Cell Count 8.3 X10^3/uL (4.5-11.0)
[2021-07-22 20:10] LABS: Alanine Aminotransferase 12 IU/L (<35); Albumin 4.1 g/dL (3.5-5.0); Albumin Globulin Ratio 1.3 (1.0-2.8); Alkaline Phosphatase 64 U/L (38-126); Aspartate Aminotransferase 22 IU/L (14-36); BUN Creatinine Ratio 30.6 (6-22); Bilirubin Total 0.2 mg/dL (0.2-1.3); Blood Urea Nitrogen 22 mg/dL (7-17); Calcium 8.8 mg/dL (8.4-10.2); Carbon Dioxide 22 mmol/L (22-32); Chloride 101 mmol/L (98-107); Creatine Kinase 45 U/L (30-135); Estimated Glomerular Filt Rate > 60 mL/min (>60); Globulin 3.1 g/dL (1.7-4.1); Glucose 100 mg/dL (80-110); HEMOLYSIS < 15 (0-50); Lipase 99 U/L (23-300); Magnesium 2.2 mg/dL (1.6-2.3); Potassium 4.2 mmol/L (3.4-5.1); Sodium 132 mmol/L (137-145); Total Protein 7.2 g/dL (6.3-8.2)
[2021-07-22 20:22] LABS: Troponin I < 0.012 ng/mL (0.01-0.034)
--- NOTE | 2021-07-22 20:38 | ED_ITS ---
HPI - General Adult General Chief complaint: Dizziness Stated complaint: Dizzy, lightheaded, erratic pulse/BP Time Seen by Provider: 07/22/21 19:47 Source: patient Mode of arrival: Ambulatory Limitations: no limitations History of Present Illness HPI narrative: 76-year-old female. She states she is under the care of cardiology for bradycardia. Yesterday she was told to stop her flecainide is she has had issues with dizziness and shortness of breath with exertion. States she occasionally feels like her heart rate is high and then low. She does feel lightheaded. Has not passed out. She states she was feeling this way today and her kraft digester operator's office told her that she should come the emergency department for evaluation. She denies chest pain. No swelling in her lower extremities. Related Data Home Medications Medication Instructions Recorded Confirmed flecainide 50 mg tablet 50 mg PO Q12H 12/08/20 03/22/21 Previous Rx's Medication Instructions Recorded wrvkpxfllf-sdwsniivcmkot-vetbhfic 2 tab PO QDAY PRN pain #10 tabs 01/24/21 50 mg-325 mg-40 mg tablet levothyroxine 100 mcg tablet 100 mcg PO QDAY #90 tabs 03/22/21 meloxicam 7.5 mg tablet (Mobic) 7.5 mg PO DAILY PRN pain #90 tabs 03/22/21 metoprolol tartrate 25 mg tablet 25 mg PO BID palpitations #180 tabs 04/01/21 omeprazole 20 mg capsule,delayed 20 mg PO DAILY #90 caps 04/20/21 release Allergies Allergy/AdvReac Type Severity Reaction Status Date / Time amlodipine AdvReac Mild Edema Verified 05/02/21 10:24 Review of Systems Review of Systems ROS Unobtainable: All systems reviewed & are unremarkable except as noted in HPI and below Patient History Medical History Actinic keratosis Allergy to shrimp (04/22/15) Cutaneous candidiasis Diverticular disease Gluten enteropathy Hyperlipidemia Hypertension Hypothyroidism Migraines Unilateral hearing loss Surgical History S/P laminectomy with spinal fusion Status post endoscopy (06/19/13) Status post ovarian cystectomy (~1970) Family History Mother No problems noted. Social History marital status: education level: college occupational status: other Smoking Status: Never smoker Smoking Status: Never smoker alcohol intake frequency: 0-2 drinks per day Alcohol type: wine Substance Use Type: does not use Exam Initial Vital Signs Initial Vital Signs: Vital Signs Pulse Rate 94 H 07/22/21 19:31 Pulse Oximetry 100 07/22/21 19:31 Const General: cooperative, comfortable and well developed HENMT Head: normal to inspection and normocephalic Resp Effort & Inspection: normal respiratory effort Auscultation: clear to auscultation bilaterally Cardio Rate: regular rate Rhythm: regular rhythm GI Inspection: normal to inspection Skin General: no rashes or lesions noted Neuro General: patient alert, patient awake and moves all extremities Extrem General: normal to inspection and capillary refill normal Psych Appearance: grossly normal and well kempt Course Orders Ordered: ED Orders 07/22/21 19:35 XR chest 1V Stat EKG-12 Lead Stat 07/22/21 19:36 Complete Blood Count AUTO DIFF Stat Comprehensive Metabolic Panel Stat Lipase Stat Magnesium Stat TSH [Thyroid Stimulating Hormone] Stat Troponin & CK Cardiac Panel Stat Vital Signs Vital signs: Vital Signs - 8 hr 07/22/21 19:42 07/22/21 19:31 07/22/21 19:32 Temperature 97.8 F Pulse Rate 82 94 H Respiratory Rate 22 Blood Pressure 132/79 132/79 Pulse Oximetry 100 100 Oxygen Delivery Method Room Air 07/22/21 19:32 07/22/21 19:56 07/22/21 19:56 Temperature Pulse Rate 89 88 Respiratory Rate Blood Pressure 151/91 H Pulse Oximetry 99 98 Oxygen Delivery Method 07/22/21 20:00 07/22/21 20:00 07/22/21 20:30 Temperature Pulse Rate 83 Respiratory Rate Blood Pressure 136/84 176/81 H Pulse Oximetry 97 Oxygen Delivery Method 07/22/21 20:30 07/22/21 21:00 07/22/21 21:00 Temperature Pulse Rate 92 H 83 Respiratory Rate 18 Blood Pressure 179/118 H Pulse Oximetry 97 98 Oxygen Delivery Method Medical Decision Making Lab Data Lab results reviewed: Yes I reviewed the patient's lab results. Result diagrams: 07/22/21 19:36 07/22/21 19:36 Labs: Lab Results 07/22/21 07/22/21 07/22/21 Range/Units 19:36 19:36 19:36 WBC 8.3 (4.5-11.0) X10^3/uL RBC 3.47 L (4.0-5.2) X10^6/uL Hgb 8.5 L (12.0-16.0) g/dL Hct 26.9 L (36-46) % MCV 77.4 L (80-100) fL MCH 24.4 L (26-34) PG MCHC 31.6 (30-36) % RDW 17.0 H (11.6-14.8) % Plt Count 390 (150-400) X10^3/uL Neut % (Auto) 57.5 (50-75) % Lymph % (Auto) 28.4 (25-40) % Trinity % (Auto) 10.0 (3-14) % Eos % (Auto) 3.5 (2-4) % Baso % (Auto) 0.6 (0-2) % Neut # (Auto) 4800 (3458-2640) /uL Lymph # (Auto) 2400 (8745-4240) /uL Trinity # (Auto) 800 (0-900) /uL Eos # (Auto) 300 (0-450) /uL Baso # (Auto) 0 (0-100) /uL Sodium 132 L (137-145) mmol/L Potassium 4.2 (3.4-5.1) mmol/L Chloride 101 (98-107) mmol/L Carbon Dioxide 22 (22-32) mmol/L BUN 22 H (7-17) mg/dL Creatinine 0.72 (0.52-1.04) mg/dL Estimated GFR > 60 (>60) mL/min BUN/Creatinine Ratio 30.6 H (6-22) Glucose 100 (80-110) mg/dL Calcium 8.8 (8.4-10.2) mg/dL Magnesium 2.2 (1.6-2.3) mg/dL Total Bilirubin 0.2 (0.2-1.3) mg/dL AST 22 (14-36) IU/L ALT 12 (<35) IU/L Alkaline Phosphatase 64 (38-126) U/L Total Creatine Kinase 45 (30-135) U/L CK-MB (CK-2) TNP CK-MB (CK-2) Rel Index TNP Troponin I < 0.012 (0.01-0.034) ng/mL Total Protein 7.2 (6.3-8.2) g/dL Albumin 4.1 (3.5-5.0) g/dL Globulin 3.1 (1.7-4.1) g/dL Albumin/Globulin Ratio 1.3 (1.0-2.8) Lipase 99 (23-300) U/L TSH 1.65 (0.47-4.68) uIU/mL Imaging Data Chest x-ray: Radiologist's Impression: [address] [address] XRay Report Signed Patient: Lul Anderson MR#: [id number] : 1945 Acct:[id number] Age/Sex: 76 / F Date of Service: 07/22/21 Loc: ED Accession Number: [id number] ?? Procedure: XR chest 1V Ordering Provider: Matt Bermudez D.O. PROCEDURE:? XR CHEST 1V ? INDICATIONS:? chest pain ? TECHNIQUE:? One view of the chest was acquired.? ? COMPARISON:? [facility], , XR CHEST 1V, 01/17/2020, 14:31. ? FINDINGS:? ? Surgical changes and devices:? None.? ? Lungs and pleura:? Lungs are clear.? No pleural effusions or pneumothorax.? ? Mediastinum:? There is a moderate-sized hiatal hernia.? Heart size is normal.? ? Bones and chest wall:? No suspicious bony lesions.? Overlying soft tissues appear unremarkable.? ? IMPRESSION:? ? 1.? No acute cardiopulmonary disease. ? ? ? Dictated by: Ryan Harris M.D. on 07/22/2021 at 20:11 ? ? Approved by: Ryan Harris M.D. on 07/22/2021 at 20:11 ECG Data Attestation: I personally reviewed and interpreted this ECG as follows: Interpretation: Sinus rhythm Ventricular rate is 74 Frequent PVCs Normal QRS No ST T wave changes MDM Narrative Medical decision making narrative: Patient's symptoms she presents with today are not new. She is under the care of cardiology for this. She recently had a change to some of her medications. Patient's H&H today is low. It is lower than her last lab draw which was year ago. Patient has been getting most of her labs drawn at her facility. She was able to pull these labs up on her patient chart however all of these labs over the past year have been chemistries. There is no CBCs noted. Unsure whether not this H&H today is new. She is not reporting any vomiting. No dark colored stools. We did discuss possibly having a blood transfusion to see if this does not help her symptoms however I feel that the risks right now hallway the benefits as we are unsure as to whether not it could potentially be recent changes in medicines that could be causing her symptoms. The patient agrees with this and would like to hold on any transfusions for now. She is having frequent PACs and PVCs while on the monitor here in the ER. These are relatively asymptomatic for her. No fevers. Her thyroid is unremarkable today. Plan to be is to have her continue all of her medications as directed on Sunday she will contact her kraft digester operator for follow-up. She was given return precautio ns. She expressed understanding and agreed with plan. Discharge Plan Departure Patient Disposition: Home Clinical Impression: Anemia Instructions: Anemia Activity Restrictions/Additional Instructions: I do recommend that you take your medications like we discussed. On Sunday contact your kraft digester operator for a follow-up. Return to the emergency department for any new or worsening symptoms. Prescriptions: No Action flecainide 50 mg tablet 50 mg PO Q12H baedlesvax-qurcydkibujgm-zpcj 50-325-40 mg tablet 2 tab PO QDAY PRN (Reason: pain) Qty: 10 5RF metoprolol tartrate 25 mg tablet 25 mg PO BID Qty: 180 3RF omeprazole 20 mg capsule,delayed release(DR/EC) 20 mg PO DAILY Qty: 90 3RF Hold Instructions: Trial of 20mg Rx Instructions: Take one capsule by mouth once a day. levothyroxine 100 mcg tablet 100 mcg PO QDAY Qty: 90 3RF meloxicam [Mobic] 7.5 mg tablet 7.5 mg PO DAILY PRN (Reason: pain) Qty: 90 3RF Referrals: Raffy Marrero MD [Primary Care Provider] - Visit Report Forms: Patient Portal/API
[2021-07-22 21:34] LABS: Thyroid Stimulating Hormone 1.65 uIU/mL (0.47-4.68)
== END 2021-07-22 21:29 | disposition home or self-care (01) ==
PROVIDERS: Emergency Provider Emergency Medicine; PCP Student in an Organized Health Care Education/Training Program
DX: D64.9 Anemia, unspecified (principal); R07.9 Chest pain, unspecified; R06.02 Shortness of breath
CPT/HCPCS: 36415; 71045; 80053; 82550; 83690; 83735; 84443; 84484; 85025; 93005; 93010; 99284

== ENCOUNTER → 2021-07-25 10:38 | Outpatient (CLI) | payer MEDICARE, OTHER, SELFPAY ==
[2021-07-25 11:36] LABS: Appearance Urine UA CLEAR; Bilirubin Urine UA NEGATIVE (NEGATIVE); Color Urine UA YELLOW; Glucose Urine UA NEGATIVE (Negative); Ketones Urine UA NEGATIVE (NEGATIVE); Leukocyte Esterase Urine UA NEGATIVE (NEGATIVE); Nitrite Urine UA NEGATIVE (Negative); Occult Blood Urine UA NEGATIVE (Negative); Protein Urine UA TRACE (Negative); Urobilinogen Urine UA 0.2 E.U./dL (0.2)
[2021-07-25 11:37] LABS: pH Urine UA 6.5 (4.5-8.0)
[2021-07-25 11:42] LABS: Bacteria Urine None Seen; Culture Indicated Urine Cult Not Indicated; Hyaline Casts Urine 1-5/LPF; Mucus Urine 2+ (Negative); RBC Urine None Seen (0-5/HPF); WBC Urine None Seen (0-5/HPF)
[2021-07-25 11:43] LABS: Hematocrit 28.4 % (36-46); Hemoglobin 8.9 g/dL (12.0-16.0); Reticulocyte Count, Percent 2.9 % (1.1-2.6)
[2021-07-25 12:21] LABS: HEMOLYSIS < 15 (0-50); Iron 366 ug/dL (37-170)
[2021-07-25 12:23] LABS: Lactate Dehydrogenase 366 U/L (313-618)
[2021-07-25 12:37] LABS: Total Iron Binding Capacity 404 ug/dL (265-497); Transferrin 306 mg/dL (206-381)
[2021-07-25 12:39] LABS: Percent Iron Saturation 91 % (15-50)
[2021-07-25 12:58] LABS: Ferritin 10 ng/mL (11-264)
[2021-07-25 13:29] LABS: Folate 15.6 ng/mL (2.76-20.0)
== END ==
PROVIDERS: PCP Student in an Organized Health Care Education/Training Program; Referring Provider Student in an Organized Health Care Education/Training Program; Visit Provider Student in an Organized Health Care Education/Training Program
DX: D50.9 Iron deficiency anemia, unspecified (principal); R10.30 Lower abdominal pain, unspecified
CPT/HCPCS: 36415; 81001; 82728; 82746; 83540; 83550; 83615; 85014; 85018; 85045

== ENCOUNTER → 2021-08-01 10:02 | Outpatient (CLI) | payer MEDICARE, OTHER, SELFPAY ==
--- NOTE | 2021-08-01 11:41 | DI.CT.S_ITS ---
PROCEDURE: CT ABDOMEN PELVIS W CON INDICATIONS: Lower abdominal pain TECHNIQUE: After the administration of oral and IV contrast, axial sections were acquired from the lung bases to the pubic symphysis. Coronal and sagittal reformats were performed. For radiation dose reduction, the following was used: automated exposure control, adjustment of mA and/or kV according to patient size. COMPARISON: [facility], MR, MR LUMBAR SPINE WO CON, 04/22/2020, 17:00. [facility], CT, ABDOMEN/PELVIS WITH CONTRAST, 11/08/2012, 10:59. FINDINGS: Image quality: Excellent. Lung bases: No pleural effusion. Heart: No significant findings. Moderate hiatal hernia. ABDOMEN: Liver: Well-circumscribed hepatic hypodensities are similar to 2013 and likely benign cysts. Gallbladder: Not distended. Possible small calcified layering gallstone. Biliary ducts: Unremarkable. Pancreas: Unremarkable. Spleen: Unremarkable. Adrenal Glands: Minimal adrenal thickening bilaterally. Kidneys and Ureters: No hydronephrosis. Small simple appearing cyst in the left kidney. Stomach and Bowel: Stomach, small bowel loops, and colon are unremarkable. Small duodenal diverticulum. Diverticulosis. No diverticulitis identified. Normal appendix. Peritoneum: No abnormal intraperitoneal fluid. No free air. Ventral Wall: No hernia. Abdominal Nodes: No retroperitoneal or mesenteric adenopathy by size criteria. Vessels: Aorta and inferior vena cava are normal in size. Moderate calcified plaque. PELVIS: Pelvic Organs: Anteverted uterus. Bladder: No stones. Pelvic Nodes: No enlarged lymph nodes. Miscellaneous: No inguinal hernias are seen. Bones: L4-L5 pedicle screw fixation with intervertebral body spacer. There is anterolisthesis of L4 on L5 measuring 0.8 cm. There is multilevel DDD. No compression fracture. No suspicious lesion. IMPRESSION: 1. Diverticulosis. No diverticulitis identified. No free fluid. 2. No small bowel obstruction. 3. Moderate hiatal hernia. Dictated by: Maikel Lynne M.D. on 08/01/2021 at 12:04 Approved by: Maikel Lynne M.D. on 08/01/2021 at 12:14
== END ==
PROVIDERS: PCP Student in an Organized Health Care Education/Training Program; Referring Provider Student in an Organized Health Care Education/Training Program; Visit Provider Student in an Organized Health Care Education/Training Program
DX: R10.30 Lower abdominal pain, unspecified (principal); D50.9 Iron deficiency anemia, unspecified; K44.9 Diaphragmatic hernia without obstruction or gangrene; K57.10 Diverticulosis of small intestine without perforation or abscess without bleeding; K57.90 Diverticulosis of intestine, part unspecified, without perforation or abscess without bleeding; N28.1 Cyst of kidney, acquired
CPT/HCPCS: 74177

== ENCOUNTER → 2021-08-17 10:30 | Outpatient (CLI) | payer MEDICARE, OTHER, SELFPAY ==
[2021-08-18 08:06] LABS: Fecal Immunochemical Test Negative (Negative)
== END ==
PROVIDERS: PCP Student in an Organized Health Care Education/Training Program; Referring Provider Student in an Organized Health Care Education/Training Program; Visit Provider Student in an Organized Health Care Education/Training Program
DX: Z12.11 Encounter for screening for malignant neoplasm of colon (principal); D50.9 Iron deficiency anemia, unspecified
CPT/HCPCS: 82274

== ENCOUNTER → 2021-10-27 13:08 | Outpatient (CLI) | payer MEDICARE, OTHER, SELFPAY ==
[2021-10-27 13:31] LABS: Basophils Absolute Auto 0 /uL (0-100); Basophils Percent Auto 0.9 % (0-2); Eosinophils Absolute Auto 200 /uL (0-450); Eosinophils Percent Auto 4.4 % (2-4); Hematocrit 33.5 % (36-46); Lymphocytes Absolute Auto 1300 /uL (1100-4500); Lymphocytes Percent Auto 23.9 % (25-40); Mean Corpuscular HGB Conc 32.8 % (30-36); Mean Corpuscular Hemoglobin 28.3 PG (26-34); Mean Corpuscular Volume 86.3 fL (80-100); Monocytes Absolute Auto 400 /uL (0-900); Monocytes Percent Auto 6.7 % (3-14); Neutrophils Absolute Auto 3400 /uL (1500-7000); Neutrophils Percent Auto 64.1 % (50-75); Platelet Count 311 X10^3/uL (150-400); Red Blood Cell Count 3.89 X10^6/uL (4.0-5.2); Red Cell Distribution Width 22.9 % (11.6-14.8); White Blood Cell Count 5.3 X10^3/uL (4.5-11.0)
[2021-10-27 13:33] LABS: Add Manual Diff / Slide Review SLIDE REVIEW
[2021-10-27 14:03] LABS: Anisocytosis 2+; RBC Morphology See
[2021-10-27 14:11] LABS: Iron 59 ug/dL (37-170)
[2021-10-27 14:18] LABS: Ferritin 72 ng/mL (11-264)
[2021-10-27 14:22] LABS: Total Iron Binding Capacity 255 ug/dL (265-497)
[2021-10-28 07:31] LABS: Percent Iron Saturation 23 % (15-50)
== END ==
PROVIDERS: Internal Medicine Medical Oncology; PCP Student in an Organized Health Care Education/Training Program; Referring Provider Nurse Practitioner Family; Visit Provider Nurse Practitioner Family
DX: D50.9 Iron deficiency anemia, unspecified (principal)
CPT/HCPCS: 36415; 82728; 83540; 83550; 85025

== ENCOUNTER 2021-11-08 00:39 | Emergency (ER) | payer MEDICARE, OTHER, SELFPAY ==
[2021-11-08] VITALS (11 sets, daily range): BP systolic 167–220; BP diastolic 84–120; PULSE 60–91; RESP 12–19; TEMP 36.6; O2SAT 96–99; BMI 25.0
[2021-11-08 01:31] LABS: Alanine Aminotransferase 20 IU/L (<35); Albumin Globulin Ratio 1.3 (1.0-2.8); Alkaline Phosphatase 72 U/L (38-126); Aspartate Aminotransferase 28 IU/L (14-36); BUN Creatinine Ratio 39.7 (6-22); Bilirubin Total 0.2 mg/dL (0.2-1.3); Blood Urea Nitrogen 23 mg/dL (7-17); Calcium 8.9 mg/dL (8.4-10.2); Carbon Dioxide 23 mmol/L (22-32); Chloride 102 mmol/L (98-107); Creatine Kinase 42 U/L (30-135); Estimated Glomerular Filt Rate > 60 mL/min (>60); Globulin 3.1 g/dL (1.7-4.1); Glucose 106 mg/dL (80-110); HEMOLYSIS < 15 (0-50); Potassium 4.4 mmol/L (3.4-5.1); Sodium 134 mmol/L (137-145); Total Protein 7.1 g/dL (6.3-8.2)
[2021-11-08 01:33] LABS: Basophils Absolute Auto 100 /uL (0-100); Basophils Percent Auto 0.7 % (0-2); Eosinophils Absolute Auto 500 /uL (0-450); Hematocrit 35.4 % (36-46); Hemoglobin 11.6 g/dL (12.0-16.0); Lymphocytes Absolute Auto 1600 /uL (1100-4500); Lymphocytes Percent Auto 17.6 % (25-40); Mean Corpuscular HGB Conc 32.7 % (30-36); Mean Corpuscular Hemoglobin 28.6 PG (26-34); Mean Corpuscular Volume 87.6 fL (80-100); Monocytes Absolute Auto 600 /uL (0-900); Monocytes Percent Auto 6.5 % (3-14); Neutrophils Absolute Auto 6400 /uL (1500-7000); Neutrophils Percent Auto 70.2 % (50-75); Platelet Count 373 X10^3/uL (150-400); Red Blood Cell Count 4.05 X10^6/uL (4.0-5.2); Red Cell Distribution Width 20.8 % (11.6-14.8); White Blood Cell Count 9.2 X10^3/uL (4.5-11.0)
[2021-11-08 01:34] LABS: Add Manual Diff / Slide Review SLIDE REVIEW
[2021-11-08 01:43] LABS: NT-proBNP (BNP-Adult 18+) 423 pg/mL (<450); Troponin I < 0.012 ng/mL (0.01-0.034)
[2021-11-08 02:16] LABS: Anisocytosis 3+; Schistocytes 1+
--- NOTE | 2021-11-08 02:28 | ED_ITS ---
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 She is largely asymptomatic and has no blurred vision or trouble speech nor chest pain, shortness of breath or abdominal pain. She does have a vague headache but states this is unchanged since a ground level fall resulting in head injury earlier in the week. She has been seen and evaluated and had 2- head CTs for evaluation. She had an outpatient diagnostic procedure done earlier today was called at home by Cardiology suggesting that she check her blood pressures as it was running high earlier today. She had been checking and she was running in the 210s as noted and came to see us. She denies any new medication change or missed doses. In fact, she took an extra dose of her losartan tonight Related Data Home Medications Medication Instructions Recorded Confirmed metoprolol succinate 25 mg 12.5 mg PO DAILY 07/25/21 08/10/21 tablet,extended release 24 hr simvastatin 20 mg tablet 20 mg PO DAILY 07/25/21 08/10/21 valsartan 40 mg tablet 40 mg PO DAILY 07/25/21 08/10/21 chlorthalidone 25 mg tablet 12.5 mg PO Q OTHER DAY 08/10/21 08/10/21 flecainide 50 mg tablet 50 mg PO BID 08/18/21 Previous Rx's Medication Instructions Recorded levothyroxine 100 mcg tablet 100 mcg PO QDAY #90 tabs 03/22/21 meloxicam 7.5 mg tablet (Mobic) 7.5 mg PO DAILY PRN pain #90 tabs 03/22/21 zykiqzbitn-hgkjbwzoydoyv-bizeehtq 2 tab PO QDAY PRN pain #10 tabs 08/23/21 50 mg-325 mg-40 mg tablet ferrous sulfate 325 mg (65 mg 325 mg PO DAILY #60 tabs 09/28/21 iron) tablet (Feosol) omeprazole 20 mg capsule,delayed 40 mg PO DAILY #90 caps 10/31/21 release Allergies Allergy/AdvReac Type Severity Reaction Status Date / Time amlodipine AdvReac Mild Edema Verified 07/25/21 10:03 Review of Systems Review of Systems Narrative: GENERAL: Denies chills, fatigue, malaise, fever, sweats. HEENT: Denies sinus pain, ear pain, sore throat, difficulty swallowing, di zziness. RESPIRATORY: Denies dyspnea, cough, wheezing, hemoptysis, sputum. CARDIOVASCULAR: Denies chest pain, palpitations, orthopnea, edema, GASTROINTESTINAL: Denies nausea, vomiting, abdominal pain, diarrhea, constipation, melena. : Denies dysuria, frequency, incontinence, hematuria, urinary retention. MUSCULOSKELETAL: denies weakness, joint pain, or bony pain SKIN: Denies rash, skin lesions, or other NEUROLOGIC: See HPI PSYCHIATRIC: No concerning psychosocial issues. 12 point review of systems is negative except for those stated above Patient History Medical History Actinic keratosis Allergy to shrimp (04/22/15) Cutaneous candidiasis Diverticular disease Gluten enteropathy Hyperlipidemia Hypertension Hypothyroidism Migraines Unilateral hearing loss Surgical History S/P laminectomy with spinal fusion Status post endoscopy (06/19/13) Status post ovarian cystectomy (~1970) Family History Mother No problems noted. Social History marital status: education level: college occupational status: other Smoking Status: Never smoker Smoking Status: Never smoker alcohol intake frequency: 0-2 drinks per day Alcohol type: wine Substance Use Type: does not use Exam Narrative Exam Narrative: GENERAL: [76] year old patient appears stated age. Well-developed patient, in mild distress. GCS 15 HEAD: Hematoma on right occiput, no evidence of depressed skull fracture, chronic per patient and EYES: Pupils equal round and reactive. Extraocular motions intact. No scleral icterus. No injection or drainage. ENT: Nose without bleeding, purulent drainage. Throat without erythema, tonsillar hypertrophy or exudate. Airway patent. NECK: Trachea midline. Non tender CARDIOVASCULAR: Regular rate and rhythm without murmurs, gallops, or rubs. RESPIRATORY: Clear to auscultation. Breath sounds equal bilaterally. No wheezes, rales, or rhonchi. GASTROINTESTINAL: Abdomen soft, non-tender, nondistended. EXTREMITIES: No edema or joint tenderness. BACK: Nontender without deformity or crepitance. No flank tenderness. NEURO: AOx3. SKIN: No rash or erythema of visible areas Initial Vital Signs Initial Vital Signs: Vital Signs Pulse Rate 89 11/08/21 00:49 Pulse Oximetry 98 11/08/21 00:49 Course Orders Ordered: ED Orders 11/08/21 EKG-12 Lead Routine 11/08/21 00:57 Complete Blood Count AUTO DIFF Stat Comprehensive Metabolic Panel Stat NT-proBNP (BNP-Adult 18+) Stat Troponin & CK Cardiac Panel Stat Vital Signs Vital signs: Vital Signs - 8 hr 11/08/21 00:56 11/08/21 00:49 11/08/21 00:52 Temperature 97.8 F Pulse Rate 91 H 89 82 Respiratory Rate 17 15 Blood Pressure 220/120 H Pulse Oximetry 98 98 99 Oxygen Delivery Method Room Air 11/08/21 00:52 11/08/21 01:00 11/08/21 01:30 Temperature Pulse Rate 80 70 Respiratory Rate 13 16 Blood Pressure 208/119 H Pulse Oximetry 98 97 Oxygen Delivery Method 11/08/21 01:45 11/08/21 01:45 11/08/21 02:00 Temperature Pulse Rate 77 Respiratory Rate 16 Blood Pressure 172/102 H 167/98 H Pulse Oximetry 97 Oxygen Delivery Method 11/08/21 02:00 11/08/21 02:30 11/08/21 02:30 Temperature Pulse Rate 62 63 Respiratory Rate 15 19 Blood Pressure 175/92 H Pulse Oximetry 96 96 Oxygen Delivery Method 11/08/21 02:38 11/08/21 02:38 Temperature Pulse Rate 62 Respiratory Rate 15 Blood Pressure 195/96 H Pulse Oximetry 99 Oxygen Delivery Method Medical Decision Making Lab Data Result diagrams: 11/08/21 00:57 11/08/21 00:57 Labs: Lab Results 11/08/21 11/08/21 Range/Units 00:57 00:57 WBC 9.2 (4.5-11.0) X10^3/uL RBC 4.05 (4.0-5.2) X10^6/uL Hgb 11.6 L (12.0-16.0) g/dL Hct 35.4 L (36-46) % MCV 87.6 (80-100) fL MCH 28.6 (26-34) PG MCHC 32.7 (30-36) % RDW 20.8 H (11.6-14.8) % Plt Count 373 (150-400) X10^3/uL Neut % (Auto) 70.2 (50-75) % Lymph % (Auto) 17.6 L (25-40) % [place] % (Auto) 6.5 (3-14) % Eos % (Auto) 5.0 H (2-4) % Baso % (Auto) 0.7 (0-2) % Neut # (Auto) 6400 (1209-8197) /uL Lymph # (Auto) 1600 (0842-4070) /uL [place] # (Auto) 600 (0-900) /uL Eos # (Auto) 500 H (0-450) /uL Baso # (Auto) 100 (0-100) /uL RBC Morphology See below Anisocytosis 3+ H Schistocytes 1+ H Sodium 134 L (137-145) mmol/L Potassium 4.4 (3.4-5.1) mmol/L Chloride 102 (98-107) mmol/L Carbon Dioxide 23 (22-32) mmol/L BUN 23 H (7-17) mg/dL Creatinine 0.58 (0.52-1.04) mg/dL Estimated GFR > 60 (>60) mL/min BUN/Creatinine Ratio 39.7 H (6-22) Glucose 106 (80-110) mg/dL Calcium 8.9 (8.4-10.2) mg/dL Total Bilirubin 0.2 (0.2-1.3) mg/dL AST 28 (14-36) IU/L ALT 20 (<35) IU/L Alkaline Phosphatase 72 (38-126) U/L Total Creatine Kinase 42 (30-135) U/L CK-MB (CK-2) TNP CK-MB (CK-2) Rel Index TNP Troponin I < 0.012 (0.01-0.034) ng/mL NT-Pro-B Natriuret Pep 423 (<450) pg/mL Total Protein 7.1 (6.3-8.2) g/dL Albumin 4.0 (3.5-5.0) g/dL Globulin 3.1 (1.7-4.1) g/dL Albumin/Globulin Ratio 1.3 (1.0-2.8) Discharge Plan Departure Patient Disposition: Home Clinical Impression: Hypertension Instructions: DI for High Blood Pressure Activity Restrictions/Additional Instructions: *You have been diagnosed with [asymptomatic hypertension. As we discussed your history and physical exam as well as labs and EKG are very reassuring] *What to do: * per my discussion with Cardiology, please begin taking the full dose of valsartan (80 mg) daily and otherwise please continue to take your regular medications as directed. [ ] New medication prescriptions sent to your pharmacy: [ ] [ ] New medication written as a paper prescription [ ] No new medications given *Please follow up with your primary care provider in 2-3 days, call for an appointment. Let them know you were seen in the Emergency Department and that we ask that you be seen in follow up. *Return to Emergency Department if you should have any new, worsening or concerning symptoms Prescriptions: No Action flecainide 50 mg tablet 50 mg PO BID fwexilprhu-rkzycvhczqrbc-zwwx 50-325-40 mg tablet 2 tab PO QDAY PRN (Reason: pain) Qty: 10 5RF omeprazole 20 mg capsule,delayed release(DR/EC) 40 mg PO DAILY Qty: 90 3RF Hold Instructions: Trial of 20mg Rx Instructions: Take one capsule by mouth once a day. metoprolol succinate 25 mg tablet extended release 24 hr 12.5 mg PO DAILY valsartan 40 mg tablet 40 mg PO DAILY simvastatin 20 mg tablet 20 mg PO DAILY levothyroxine 100 mcg tablet 100 mcg PO QDAY Qty: 90 3RF meloxicam [Mobic] 7.5 mg tablet 7.5 mg PO DAILY PRN (Reason: pain) Qty: 90 3RF chlorthalidone 25 mg Tablet 12.5 mg PO Q OTHER DAY ferrous sulfate [Feosol] 325 mg (65 mg iron) Tablet 325 mg PO DAILY Qty: 60 2RF Referrals: Raffy Marrero MD [Primary Care Provider] - Haroon Hou MD [Physician] - Visit Report Forms: Patient Portal/API
== END 2021-11-08 03:34 | disposition home or self-care (01) ==
PROVIDERS: Emergency Provider Emergency Medicine; PCP Student in an Organized Health Care Education/Training Program
DX: I10 Essential (primary) hypertension (principal)
CPT/HCPCS: 36415; 80053; 82550; 83880; 84484; 85025; 93005; 99283; 99284

== ENCOUNTER → 2021-11-16 15:21 | Outpatient (CLI) | payer MEDICARE, OTHER, SELFPAY ==
[2021-11-16 18:12] LABS: Appearance Urine UA CLEAR; Bilirubin Urine UA NEGATIVE (NEGATIVE); Color Urine UA YELLOW; Glucose Urine UA NEGATIVE (Negative); Ketones Urine UA NEGATIVE (NEGATIVE); Leukocyte Esterase Urine UA NEGATIVE (NEGATIVE); Nitrite Urine UA NEGATIVE (Negative); Occult Blood Urine UA NEGATIVE (Negative); Protein Urine UA NEGATIVE (Negative); Specific Gravity Urine UA <=1.005 (1.000-1.035); Urobilinogen Urine UA 0.2 E.U./dL (0.2)
[2021-11-16 18:26] LABS: pH Urine UA 6.5 (4.5-8.0)
[2021-11-16 18:31] LABS: Bacteria Urine None Seen; Culture Indicated Urine Cult Not Indicated; RBC Urine None Seen (0-5/HPF); Renal Epithelial Cells Urine 1-5/HPF (0-1/HPF); WBC Urine None Seen (0-5/HPF)
== END ==
PROVIDERS: PCP Student in an Organized Health Care Education/Training Program; Referring Provider Student in an Organized Health Care Education/Training Program; Visit Provider Student in an Organized Health Care Education/Training Program
DX: R30.0 Dysuria (principal)
CPT/HCPCS: 81001

== ENCOUNTER → 2021-11-21 12:34 | Outpatient (CLI) | payer MEDICARE, OTHER, SELFPAY ==
--- NOTE | 2021-11-21 | DI.MG.S_ITS ---
BILATERAL DIGITAL SCREENING MAMMOGRAM 3D/2D WITH CAD: 11/21/2021 CLINICAL: Routine screening. Family history of breast cancer. Comparison is made to exams dated: 07/05/2020 mammogram, 09/02/2018 mammogram, and 08/17/2017 mammogram - [facility]. There are scattered areas of fibroglandular density in both breasts (category b / 25%-50% glandular tissue). Current study was also evaluated with a Computer Aided Detection (CAD) system. There is a developing round low density asymmetry in the right breast anterior depth lateral region seen on the craniocaudal view only. No other significant masses, calcifications, or other findings are seen in either breast. IMPRESSION: INCOMPLETE: NEEDS ADDITIONAL IMAGING EVALUATION The developing round low density asymmetry in the right breast is indeterminate. Additional views with possible ultrasound are recommended. Based on the Tyrer Cuzick model (a risk assessment model) the patient's lifetime risk is 3.7% and her 10 year risk is 0.0%. According to the ACR, ACS, and NCCN guidelines, an annual breast MRI exam along with mammogram is recommended if the patient's lifetime risk is 20% or greater. This exam was interpreted at Station ID: [id number]. NOTE: For mammograms, a report in lay terms will be sent to the patient. Approximately 15% of breast malignancies will not be visualized mammographically. In the management of a palpable breast mass, a negative mammogram must not discourage biopsy of a clinically suspicious lesion. Electronically Signed By: Anisha villegas/cheryl:11/21/2021 14:53:48 letter sent: Additional Imaging Needed ACR BI-RADS Category 0: Incomplete 3340F
== END ==
PROVIDERS: PCP Student in an Organized Health Care Education/Training Program; Referring Provider Student in an Organized Health Care Education/Training Program; Visit Provider Student in an Organized Health Care Education/Training Program
DX: Z12.31 Encounter for screening mammogram for malignant neoplasm of breast (principal); Z80.3 Family history of malignant neoplasm of breast
CPT/HCPCS: 77063; 77067

== ENCOUNTER → 2021-12-21 11:16 | Outpatient (CLI) | payer MEDICARE, OTHER, SELFPAY ==
--- NOTE | 2021-12-21 11:17 | DI.US.S_ITS ---
ULTRASOUND OF RIGHT BREAST: 12/21/2021 CLINICAL: Patient returns today to evaluate a focal asymmetry in the right breast. Comparison is made to exams dated: 11/21/2021 mammogram, 12/21/2021 mammogram, 07/05/2020 mammogram, 09/02/2018 mammogram, 08/17/2017 mammogram, and 08/02/2016 mammogram - [facility]. Real-time ultrasound of the right breast was performed. Ortiz scale images of the real-time examination were reviewed. No significant abnormalities were seen sonographically in the right breast. IMPRESSION: NEGATIVE There is no sonographic evidence of malignancy. There is no abnormality seen in the right breast to correspond with the single view mammography finding in the sub-areolar depth. Return to annual mammogram screening schedule is recommended. This exam was interpreted at Station ID: [id number]. Electronically Signed By: Robi Burch M.D. lc/:12/21/2021 13:18:56 letter sent: Normal Exam Ultrasound BI-RADS: 1 Negative
--- NOTE | 2021-12-21 11:17 | DI.MG.S_ITS ---
UNILATERAL RIGHT DIGITAL DIAGNOSTIC MAMMOGRAM 3D/2D WITH ADDITIONAL VIEWS: 12/21/2021 CLINICAL: Additional evaluation requested from prior study. Comparison is made to exams dated: 11/21/2021 mammogram, 07/05/2020 mammogram, and 09/02/2018 mammogram - [facility]. There are scattered areas of fibroglandular density in the right breast (category b / 25%-50% glandular tissue). There is an asymmetry in the right breast anterior depth central to the nipple seen on the craniocaudal view only. This is less prominent. No other significant masses or calcifications are seen in the breast. IMPRESSION: INCOMPLETE: NEEDS ADDITIONAL IMAGING EVALUATION The developing asymmetry in the right breast is indeterminate. An ultrasound is recommended. Based on the Tyrer Cuzick model (a risk assessment model) the patient's lifetime risk is 3.7% and her 10 year risk is 0.0%. According to the ACR, ACS, and NCCN guidelines, an annual breast MRI exam along with mammogram is recommended if the patient's lifetime risk is 20% or greater. This exam was interpreted at Station ID: [id number]. NOTE: For mammograms, a report in lay terms will be sent to the patient. Approximately 15% of breast malignancies will not be visualized mammographically. In the management of a palpable breast mass, a negative mammogram must not discourage biopsy of a clinically suspicious lesion. Electronically Signed By: Robi Burch M.D. lc/:12/21/2021 13:17:52 ACR BI-RADS Category 0: Incomplete 3340F
== END ==
PROVIDERS: PCP Student in an Organized Health Care Education/Training Program; Referring Provider Student in an Organized Health Care Education/Training Program; Visit Provider Student in an Organized Health Care Education/Training Program
DX: R92.8 Other abnormal and inconclusive findings on diagnostic imaging of breast (principal); N64.89 Other specified disorders of breast
CPT/HCPCS: 76642; 77065; G0279

== ENCOUNTER → 2022-03-24 06:47 | Outpatient (CLI) | payer MEDICARE, OTHER, SELFPAY ==
[2022-03-24 08:13] LABS: BUN Creatinine Ratio 35.1 (6-22); Blood Urea Nitrogen 20 mg/dL (7-17); Calcium 9.4 mg/dL (8.4-10.2); Carbon Dioxide 27 mmol/L (22-32); Chloride 94 mmol/L (98-107); Estimated Glomerular Filt Rate > 60 mL/min (>60); Glucose 85 mg/dL (80-110); HEMOLYSIS < 15 (0-50); Potassium 4.4 mmol/L (3.4-5.1); Sodium 132 mmol/L (137-145)
[2022-03-24 09:06] LABS: Free T4, Direct Thyroxine 1.88 ng/dL (0.78-2.19)
[2022-03-24 10:55] LABS: Hep C Virus Ab w/Reflex Quant NEGATIVE s/c (NEGATIVE)
== END ==
PROVIDERS: PCP Student in an Organized Health Care Education/Training Program; Referring Provider Student in an Organized Health Care Education/Training Program; Visit Provider Student in an Organized Health Care Education/Training Program
DX: E03.9 Hypothyroidism, unspecified (principal); E87.1 Hypo-osmolality and hyponatremia; I10 Essential (primary) hypertension; Z11.59 Encounter for screening for other viral diseases
CPT/HCPCS: 36415; 80048; 84439; 84443; 86803

== ENCOUNTER → 2022-04-14 14:11 | Outpatient (CLI) | payer MEDICARE, OTHER, SELFPAY | PROVIDERS: PCP Student in an Organized Health Care Education/Training Program; Referring Provider Student in an Organized Health Care Education/Training Program; Visit Provider Student in an Organized Health Care Education/Training Program | DX: Z78.0 Asymptomatic menopausal state (principal); Z13.820 Encounter for screening for osteoporosis; M81.0 Age-related osteoporosis without current pathological fracture; E21.3 Hyperparathyroidism, unspecified; M19.90 Unspecified osteoarthritis, unspecified site | CPT/HCPCS: 77080 ==

== ENCOUNTER → 2022-04-25 06:46 | Outpatient (CLI) | payer MEDICARE, OTHER, SELFPAY ==
[2022-04-25 08:49] LABS: Hematocrit 33.7 % (36-46); Hemoglobin 11.5 g/dL (12.0-16.0); Mean Corpuscular Hemoglobin 29.6 PG (26-34); Platelet Count 293 X10^3/uL (150-400); Red Blood Cell Count 3.88 X10^6/uL (4.0-5.2); Red Cell Distribution Width 15.7 % (11.6-14.8); Reticulocyte Count, Percent 2.6 % (1.1-2.6); White Blood Cell Count 6.3 X10^3/uL (4.5-11.0)
[2022-04-25 09:15] LABS: BUN Creatinine Ratio 27.8 (6-22); Blood Urea Nitrogen 15 mg/dL (7-17); Calcium 8.6 mg/dL (8.4-10.2); Carbon Dioxide 27 mmol/L (22-32); Chloride 96 mmol/L (98-107); Estimated Glomerular Filt Rate > 60 mL/min (>60); Glucose 86 mg/dL (80-110); HEMOLYSIS < 15 (0-50); Potassium 3.7 mmol/L (3.4-5.1); Sodium 131 mmol/L (137-145)
[2022-04-25 09:44] LABS: Ferritin 16 ng/mL (11-264)
== END ==
PROVIDERS: PCP Student in an Organized Health Care Education/Training Program; Referring Provider Student in an Organized Health Care Education/Training Program; Visit Provider Student in an Organized Health Care Education/Training Program
DX: Z86.2 Personal history of diseases of the blood and blood-forming organs and certain disorders involving the immune mechanism (principal); E87.1 Hypo-osmolality and hyponatremia
CPT/HCPCS: 36415; 80048; 82728; 85027; 85045

== ENCOUNTER → 2022-07-25 06:32 | Outpatient (CLI) | payer MEDICARE, OTHER, SELFPAY ==
[2022-07-25 08:16] LABS: Rheumatoid Factor < 8.6 IU/mL (<12.0)
[2022-07-25 08:34] LABS: Erythrocyte Sedimentation Rate 11 MM/HR (0-20)
[2022-07-25 08:48] LABS: Vitamin D 25 Hydroxy (D3) 37.3 ng/mL (30.0-100.0)
[2022-07-26 03:15] LABS: x Labcorp Estim. Avg Glu (eAG) 103 mg/dL (.); x Labcorp Hemoglobin A1c 5.2 % (4.8-5.6)
== END ==
PROVIDERS: Family Provider Student in an Organized Health Care Education/Training Program; PCP Pediatrics; Referring Provider Pediatrics; Visit Provider Pediatrics
DX: E03.9 Hypothyroidism, unspecified; D50.9 Iron deficiency anemia, unspecified; E56.9 Vitamin deficiency, unspecified; E87.1 Hypo-osmolality and hyponatremia
CPT/HCPCS: 36415; 82306; 83036; 84443; 85651; 86430

== ENCOUNTER 2022-09-28 06:48 | Emergency (ER) | payer MEDICARE, OTHER, SELFPAY ==
[2022-09-28] VITALS (7 sets, daily range): BP systolic 143–193; BP diastolic 73–109; PULSE 70–86; RESP 14–19; TEMP 36.7; O2SAT 96–99; BMI 25.0
[2022-09-28 08:06] LABS: Prothrombin Time 11.3 SECONDS (10.1-12.7)
[2022-09-28 08:09] LABS: PTT Partial Thromboplastin Tim 28 SECONDS (26-36)
[2022-09-28] MEDS: PANTOPRAZOLE 40 MG VIAL 80 MG IV (08:10)
[2022-09-28 08:11] LABS: Alanine Aminotransferase 20 IU/L (<35); Albumin 3.8 g/dL (3.5-5.0); Albumin Globulin Ratio 1.3 (1.0-2.8); Alkaline Phosphatase 73 U/L (38-126); Aspartate Aminotransferase 28 IU/L (14-36); BUN Creatinine Ratio 26.8 (6-22); Bilirubin Total 0.4 mg/dL (0.2-1.3); Blood Urea Nitrogen 15 mg/dL (7-17); Calcium 8.9 mg/dL (8.4-10.2); Carbon Dioxide 25 mmol/L (22-32); Chloride 97 mmol/L (98-107); Estimated Glomerular Filt Rate > 60 mL/min (>60); Globulin 2.9 g/dL (1.7-4.1); Glucose 99 mg/dL (80-110); HEMOLYSIS < 15 (0-50); Lipase 91 U/L (23-300); Potassium 4.2 mmol/L (3.4-5.1); Sodium 129 mmol/L (137-145); Total Protein 6.7 g/dL (6.3-8.2)
[2022-09-28 08:16] LABS: Add Manual Diff / Slide Review NO; Basophils Absolute Auto 100 /uL (0-100); Basophils Percent Auto 0.8 % (0-2); Eosinophils Absolute Auto 300 /uL (0-450); Eosinophils Percent Auto 3.8 % (2-4); Hematocrit 36.6 % (36-46); Hemoglobin 12.4 g/dL (12.0-16.0); Lymphocytes Absolute Auto 1300 /uL (1100-4500); Mean Corpuscular HGB Conc 34.1 % (30-36); Mean Corpuscular Volume 88.2 fL (80-100); Monocytes Absolute Auto 500 /uL (0-900); Monocytes Percent Auto 7.7 % (3-14); Neutrophils Absolute Auto 5000 /uL (1500-7000); Neutrophils Percent Auto 69.7 % (50-75); Platelet Count 313 X10^3/uL (150-400); Red Blood Cell Count 4.14 X10^6/uL (4.0-5.2); Red Cell Distribution Width 14.9 % (11.6-14.8); White Blood Cell Count 7.1 X10^3/uL (4.5-11.0)
--- NOTE | 2022-09-28 08:23 | ED.GIBLEED ---
HPI - GI Bleed General Chief complaint: GI Bleed Stated complaint: bleeding when pooping Time Seen by Provider: 09/28/22 06:52 Source: patient Mode of arrival: Family Vehicle History of Present Illness HPI Narrative: 77-year-old female with history of hypertension, hypothyroidism, dyslipidemia and GERD with known diverticulosis on colonoscopy and has had recurrent diverticulitis in the past. Patient presents this morning with she states she had a little bit of lower abdominal discomfort yesterday and some rust colored stools and then this morning at 0500 states she had quite a bit of lower abdominal cramping in the suprapubic area and bright red blood with bowel movement. She states she is not sure if there were any clots she states did not seem to be mixed in with the stool but more around it. She had several bowel movements throughout the morning. Last was about an hour and a half ago. She has had some persistent cramping. She states it does not feel like it is the rectum or that there is a hemorrhoids sticking out. She describes it more suprapubic. She states she is had diverticulitis in the past but is usually more on the left. She denies fevers or chills. No nausea or vomiting, patient states no issues yesterday otherwise than the rust colored stools. She did have black. He is recently. She states she has had an EGD and colonoscopy in the last year was told she had a lot of diverticulosis on her colonoscopy. She had this done because she got quite anemic and required iron infusions to bring her hemoglobin up to 11. She states they did not find a source of bleeding at that time or cause of her anemia otherwise. Dr. Blanco is her primary care. Related Data Home Medications Medication Instructions Recorded Confirmed metoprolol succinate 25 mg 12.5 mg PO BID 07/25/21 07/24/22 tablet,extended release 24 hr simvastatin 20 mg tablet 20 mg PO DAILY 07/25/21 07/24/22 valsartan 40 mg tablet 40 mg PO BID 11/16/21 07/24/22 chlorthalidone 15 mg tablet 15 mg PO .Every other day 03/22/22 07/24/22 (Thalitone) Previous Rx's Medication Instructions Recorded omeprazole 20 mg capsule,delayed 20 mg PO DAILY #90 caps 03/27/22 release alendronate 70 mg tablet 70 mg PO QWEEK #4 tabs 05/30/22 levothyroxine 100 mcg tablet 100 mcg PO QDAY #90 tabs 05/30/22 meloxicam 7.5 mg tablet 7.5 mg PO DAILY PRN pain #90 tabs 05/30/22 nwtrhoucir-wtlcmyzpydnqu-zmypcbhp 2 tab PO .QD PRN pain #30 tabs 09/22/22 50 mg-325 mg-40 mg tablet ciprofloxacin HCl 500 mg tablet 500 mg PO BID #20 tabs 09/28/22 metronidazole 500 mg tablet 500 mg PO Q8H #30 tabs 09/28/22 Allergies Allergy/AdvReac Type Severity Reaction Status Date / Time amlodipine AdvReac Mild Edema Verified 09/28/22 07:23 Review of Systems Review of Systems ROS Unobtainable: All systems reviewed & are unremarkable except as noted in HPI and below Patient History Medical History Arthralgia Atrial flutter Concussion Diverticular disease Gluten enteropathy Hypertension (04/22/15) Microcytic hypochromic anemia Migraine without status migrainosus, not intractable (04/22/15) Primary osteoarthritis involving multiple joints (04/22/15) Pure hypercholesterolemia (04/22/15) Unilateral hearing loss Ventricular bigeminy (08/25/15) Surgical History S/P laminectomy with spinal fusion Status post endoscopy (06/19/13) Status post ovarian cystectomy (~1969) Family History Mother No problems noted. Social History marital status: education level: college occupational status: other Smoking Status: Never smoker Smoking Status: Never smoker alcohol intake frequency: 0-2 drinks per day Alcohol type: wine Substance Use Type: does not use Exam Narrative Exam Narrative: GENERAL: Alert and oriented x three, well-appearing elderly female in mild distress HEENT: Head normocephalic, atraumatic, EOMI, pupils reactive, face symmetric, moist mucous membranes NECK: Supple, full range of motion CARDIOVASCULAR: Regular rate and rhythm without murmurs, rubs or gallops. RESPIRATORY: Breath sounds equal bilaterally, no wheezes rales or rhonchi. ABDOMEN: Soft, mild lower abdominal tenderness, mostly suprapubic. Normoactive bowel sounds all 4 quadrants. No guarding or rebound, rigidity, no mass : No CVA tenderness EXTREMITIES: Normal range of motion, no clubbing or edema. Neurovascularly intact NEUROLOGICAL: Cranial nerves II through XII grossly intact. Moving all extremities SKIN: Warm, dry, no petechiae, no rashes or lesions. Initial Vital Signs Initial Vital Signs: Vital Signs Temperature 98.1 F 09/28/22 07:19 Pulse Rate 86 09/28/22 07:19 Respiratory Rate 14 09/28/22 07:19 Blood Pressure 143/102 H 09/28/22 07:19 Pulse Oximetry 99 09/28/22 07:19 Oxygen Delivery Method Room Air 09/28/22 07:19 Course Orders Ordered: Discontinued Medications Acetaminophen (Acetaminophen 325 Mg Tablet) 975 mg PO NOW ONE Stop: 09/28/22 08:40 Last Admin: 09/28/22 09:00 Dose: 975 mg Documented By: PAL Ciprofloxacin (Ciprofloxacin 250 Mg Tablet) 500 mg PO NOW ONE Stop: 09/28/22 09:31 Last Admin: 09/28/22 09:42 Dose: 500 mg Documented By: PAL Sodium Chloride (Normal Saline 0.9%) 1,000 mls @ 150 mls/hr IV CONT JULIET Last Infusion: 09/28/22 09:52 Dose: 0 mls/hr Documented By: Admin: 09/28/22 09:03 Dose: 150 mls/hr Documented By: PAL Metronidazole (Metronidazole 500 Mg Tablet) 500 mg PO NOW ONE Stop: 09/28/22 09:32 Last Admin: 09/28/22 09:42 Dose: 500 mg Documented By: PAL Ondansetron HCl (Ondansetron 4 Mg/2 Ml Inj) 4 mg IV NOW PRN PRN Reason: Nausea And Vomiting Ondansetron HCl (Ondansetron 4 Mg Odt) 4 mg SL NOW PRN PRN Reason: Nausea And Vomiting Pantoprazole Sodium (Pantoprazole 40 Mg Vial) 80 mg IV NOW ONE Stop: 09/28/22 07:25 Last Admin: 09/28/22 08:10 Dose: 80 mg Documented By: PAL Vital Signs Vital signs: Vital Signs - 8 hr 08/17/23 07:19 Temperature 98.1 F Pulse Rate 86 Respiratory Rate 14 Blood Pressure 143/102 H Pulse Oximetry 99 Oxygen Delivery Method Room Air MDM - GI Bleed Lab Data 09/28/22 07:48 09/28/22 07:48 Labs: Lab Results 09/28/22 09/28/22 09/28/22 Range/Units 07:48 07:48 07:48 WBC 7.1 (4.5-11.0) X10^3/uL RBC 4.14 (4.0-5.2) X10^6/uL Hgb 12.4 (12.0-16.0) g/dL Hct 36.6 (36-46) % MCV 88.2 (80-100) fL MCH 30.0 (26-34) PG MCHC 34.1 (30-36) % RDW 14.9 H (11.6-14.8) % Plt Count 313 (150-400) X10^3/uL Neut % (Auto) 69.7 (50-75) % Lymph % (Auto) 18.0 L (25-40) % Alfalfa % (Auto) 7.7 (3-14) % Eos % (Auto) 3.8 (2-4) % Baso % (Auto) 0.8 (0-2) % Neut # (Auto) 5000 (2325-8724) /uL Lymph # (Auto) 1300 (3221-2424) /uL Alfalfa # (Auto) 500 (0-900) /uL Eos # (Auto) 300 (0-450) /uL Baso # (Auto) 100 (0-100) /uL PT 11.3 (10.1-12.7) SECONDS INR 1.0 (0.9-1.3) APTT 28 (26-36) SECONDS Sodium 129 L (137-145) mmol/L Potassium 4.2 (3.4-5.1) mmol/L Chloride 97 L (98-107) mmol/L Carbon Dioxide 25 (22-32) mmol/L BUN 15 (7-17) mg/dL Creatinine 0.56 (0.52-1.04) mg/dL Estimated GFR > 60 (>60) mL/min BUN/Creatinine Ratio 26.8 H (6-22) Glucose 99 (80-110) mg/dL Calcium 8.9 (8.4-10.2) mg/dL Total Bilirubin 0.4 (0.2-1.3) mg/dL AST 28 (14-36) IU/L ALT 20 (<35) IU/L Alkaline Phosphatase 73 (38-126) U/L Total Protein 6.7 (6.3-8.2) g/dL Albumin 3.8 (3.5-5.0) g/dL Globulin 2.9 (1.7-4.1) g/dL Albumin/Globulin Ratio 1.3 (1.0-2.8) Lipase (23-300) U/L Blood Type Antibody Screen 09/28/22 09/28/22 Range/Units 07:48 07:48 WBC (4.5-11.0) X10^3/uL RBC (4.0-5.2) X10^6/uL Hgb (12.0-16.0) g/dL Hct (36-46) % MCV (80-100) fL MCH (26-34) PG MCHC (30-36) % RDW (11.6-14.8) % Plt Count (150-400) X10^3/uL Neut % (Auto) (50-75) % Lymph % (Auto) (25-40) % Alfalfa % (Auto) (3-14) % Eos % (Auto) (2-4) % Baso % (Auto) (0-2) % Neut # (Auto) (2232-1447) /uL Lymph # (Auto) (6908-0224) /uL Alfalfa # (Auto) (0-900) /uL Eos # (Auto) (0-450) /uL Baso # (Auto) (0-100) /uL PT (10.1-12.7) SECONDS INR (0.9-1.3) APTT (26-36) SECONDS Sodium (137-145) mmol/L Potassium (3.4-5.1) mmol/L Chloride (98-107) mmol/L Carbon Dioxide (22-32) mmol/L BUN (7-17) mg/dL Creatinine (0.52-1.04) mg/dL Estimated GFR (>60) mL/min BUN/Creatinine Ratio (6-22) Glucose (80-110) mg/dL Calcium (8.4-10.2) mg/dL Total Bilirubin (0.2-1.3) mg/dL AST (14-36) IU/L ALT (<35) IU/L Alkaline Phosphatase (38-126) U/L Total Protein (6.3-8.2) g/dL Albumin (3.5-5.0) g/dL Globulin (1.7-4.1) g/dL Albumin/Globulin Ratio (1.0-2.8) Lipase 91 (23-300) U/L Blood Type O Positive Antibody Screen Negative Urine Dip Bedside Urine Glucose Negative Bedside Urine Bilirubin - Negative Bedside Urine Ketone - Negative Urine Specific Hannah 1.010 Bedside Urine Occult Blood - Negative Bedside Urine pH 6.5 Bedside Urine Protein - Negative Bedside Urine Urobilinogen - Negative Bedside Urine Nitrite - Negative Bedside Urine Leukocytes - Negative Esterase Imaging Data CT scan - abdomen/pelvis: Radiologist's Impression: Close Abdomen/Pelvis CT (Signed) Lui Gr - 09/28/22 Launch?[place] [address] CT Scan Report Signed Patient: Lul Anderson MR#: [id number] : 1945 Acct:[id number] Age/Sex: 77 / F Date of Service: 09/28/22 Loc: ED Accession Number: [id number] ?? Procedure: CT abdomen pelvis w con Ordering Provider: Twila Whyte D.O. PROCEDURE:? CT ABDOMEN PELVIS W CON ? INDICATIONS:? BRB w/ cramping, lower abd, ? sigmoid diverticulitis ? TECHNIQUE:? After the administration of intravenous contrast, axial sections acquired from the lung bases to the pubic symphysis.? Coronal and sagittal reformats were performed.? For radiation dose reduction, the following was used:? automated exposure control, adjustment of mA and/or kV according to patient size.? ? COMPARISON:? [facility], [place], ABDOMEN/PELVIS WITH CONTRAST, 11/08/2012, 10:59. ? FINDINGS:? Image quality:? Excellent.? ? Lung bases:? Unremarkable. Heart:? No significant findings.? Trace pericardial effusion. ? ABDOMEN: Liver:? Hepatic hypodensities, favored to represent simple cysts. Gallbladder:? Unremarkable.? Biliary ducts:? Unremarkable.? ? Pancreas:? Unremarkable.? ? Spleen:? Unremarkable.? ? Adrenal Glands:? Unremarkable.? ? Kidneys and Ureters:? Unremarkable.? ? ? Stomach and Bowel:? Moderate or the or hiatal hernia.? Pancolonic diverticulosis.? Minimal inflammatory changes surrounding a small portion of sigmoid colon, may represent early diverticulitis.? Normal appendix. Peritoneum:? No abnormal intraperitoneal fluid.? No free air.? ? Ventral Wall: ? No hernias.? Abdominal Nodes:? No retroperitoneal or mesenteric adenopathy by size criteria.? Vessels:? Aorta and inferior vena cava are normal in size.? Atherosclerotic vascular calcifications.? ? PELVIS: Pelvic Organs:? Unremarkable.? ? Bladder:? Unremarkable.? ? Pelvic Nodes: No enlarged lymph nodes.? Miscellaneous: No hernias are seen. ? ? ? Bones:? Degenerative changes of the spine.? Decreased osseous mineralization.? L4-5 posterior spinal fixation and discectomy.? Grade 1 anterolisthesis of L4 on L5. ? ? IMPRESSION:? ? 1. Pancolonic diverticulosis with mild inflammatory changes surrounding a small portion of sigmoid colon, may represent early diverticulitis. 2. Moderate hiatal hernia. ? ? Dictated by: Lui Gr M.D. on 09/28/2022 at 9:02 ? ? Approved by: Lui Gr M.D. on 09/28/2022 at 9:11?? ECG Data Attestation: I personally reviewed and interpreted this ECG as follows: Prior ECG tracings: available for review Interpretation: Sinus rhythm rate of 74 [place] 188 QRS of 82 QTC of 412. No acute ST elevation. Q-wave with inverted T-wave in 3, also present in AVF. Not present in 2. Patient has prior from 11/08/2021 which appears similar. MDM Narrative Medical decision making narrative: Patient's labs are overall reassuring hemoglobin today is 12 her last was 11, white count is 7.1 with a platelets of 3 13- coags. Sodium is 129 she is been running low in the 130s 131-132 range recently. She does not find this number unexpected, renal function electrolytes are negative. BUN is only 15. LFTs are negative. Discussed with patient with her history of diverticulosis and not having any rectal pain or discomfort I would recommend CT abdomen to evaluate for diverticulitis little bit different location that she is typically had. So far she has been hemodynamically stable. She asked for some Tylenol for pain I will give a small amount of fluid she is NPO until imaging performed. CT imaging shows pancolonic diverticulosis but mild inflammatory changes at the sigmoid colon shows diverticulitis, moderate hiatal hernia. Discharge Plan Departure Patient Disposition: Home Clinical Impression: BRBPR (bright red blood per rectum), Diverticulitis of sigmoid colon, Hiatal hernia Instructions: DI for Diverticulitis Activity Restrictions/Additional Instructions: Your imaging does show some diverticulitis of the sigmoid colon, but also incidentally shows a hiatal hernia this can sometimes cause some upper abdominal discomfort. Take antibiotics until completed. Do not drink alcohol while taking Flagyl or metronidazole I will make you vomit. The other antibiotic is ciprofloxacin. If you are tendons become very painful stopped this medication and call your physician and let them know. Prescription sent to [facility] in [place] You can take Tylenol up to a 1000 mg every 6 hours as needed for pain Please return for fevers, worsening abdominal back or flank pain, increasing large amounts of bleeding, large clots, lightheadedness or passing out, persistent vomiting or other new or concerning changes. Prescriptions: New ciprofloxacin HCl 500 mg tablet 500 mg PO BID Qty: 20 0RF metronidazole 500 mg tablet 500 mg PO Q8H Qty: 30 0RF No Action omeprazole 20 mg capsule,delayed release(DR/EC) 20 mg PO DAILY Qty: 90 3RF Hold Instructions: Trial of 20mg Rx Instructions: Take one capsule by mouth once a day. levothyroxine 100 mcg tablet 100 mcg PO QDAY Qty: 90 3RF alendronate 70 mg tablet 70 mg PO QWEEK Qty: 4 3RF meloxicam 7.5 mg tablet 7.5 mg PO DAILY PRN (Reason: pain) Qty: 90 3RF xttrxwqxab-igwssweimpend-urzf 50-325-40 mg tablet 2 tab PO .QD PRN (Reason: pain) Qty: 30 0RF metoprolol succinate 25 mg tablet extended release 24 hr 12.5 mg PO BID simvastatin 20 mg tablet 20 mg PO DAILY valsartan 40 mg tablet 40 mg PO BID Thalitone 15 mg tablet 15 mg PO .Every other day Referrals: Oleg Blanco MD [Primary Care Provider] - Stand Alone Forms: Patient Portal/API
--- NOTE | 2022-09-28 08:39 | DI.CT.S_ITS ---
PROCEDURE: CT ABDOMEN PELVIS W CON INDICATIONS: BRB w/ cramping, lower abd, ? sigmoid diverticulitis TECHNIQUE: After the administration of intravenous contrast, axial sections acquired from the lung bases to the pubic symphysis. Coronal and sagittal reformats were performed. For radiation dose reduction, the following was used: automated exposure control, adjustment of mA and/or kV according to patient size. COMPARISON: [facility], CT, ABDOMEN/PELVIS WITH CONTRAST, 11/08/2012, 10:59. FINDINGS: Image quality: Excellent. Lung bases: Unremarkable. Heart: No significant findings. Trace pericardial effusion. ABDOMEN: Liver: Hepatic hypodensities, favored to represent simple cysts. Gallbladder: Unremarkable. Biliary ducts: Unremarkable. Pancreas: Unremarkable. Spleen: Unremarkable. Adrenal Glands: Unremarkable. Kidneys and Ureters: Unremarkable. Stomach and Bowel: Moderate or the or hiatal hernia. Pancolonic diverticulosis. Minimal inflammatory changes surrounding a small portion of sigmoid colon, may represent early diverticulitis. Normal appendix. Peritoneum: No abnormal intraperitoneal fluid. No free air. Ventral Wall: No hernias. Abdominal Nodes: No retroperitoneal or mesenteric adenopathy by size criteria. Vessels: Aorta and inferior vena cava are normal in size. Atherosclerotic vascular calcifications. PELVIS: Pelvic Organs: Unremarkable. Bladder: Unremarkable. Pelvic Nodes: No enlarged lymph nodes. Miscellaneous: No hernias are seen. Bones: Degenerative changes of the spine. Decreased osseous mineralization. L4-5 posterior spinal fixation and discectomy. Grade 1 anterolisthesis of L4 on L5. IMPRESSION: 1. Pancolonic diverticulosis with mild inflammatory changes surrounding a small portion of sigmoid colon, may represent early diverticulitis. 2. Moderate hiatal hernia. Dictated by: Lui Gr M.D. on 09/28/2022 at 9:02 Approved by: Lui Gr M.D. on 09/28/2022 at 9:11
[2022-09-28] MEDS: ACETAMINOPHEN 325 MG TABLET 975 MG PO (09:00)
[2022-09-28] MEDS: SODIUM CHLORIDE 0.9% 1,000 ML 150 ML IV (09:03)
[2022-09-28] MEDS: metroNIDAZOLE 500 MG TABLET PO (09:42)
[2022-09-28] MEDS: CIPROFLOXACIN 250 MG TABLET 500 MG PO (09:42)
== END 2022-09-28 09:51 | disposition home or self-care (01) ==
PROVIDERS: Emergency Provider Emergency Medicine; Family Provider Student in an Organized Health Care Education/Training Program; PCP Pediatrics
DX: Z79.899 Other long term (current) drug therapy (principal); K57.32 Diverticulitis of large intestine without perforation or abscess without bleeding; K44.9 Diaphragmatic hernia without obstruction or gangrene; K62.5 Hemorrhage of anus and rectum
CPT/HCPCS: 36415; 74177; 80053; 81003; 83690; 85025; 85610; 85730; 86850; 86900; 86901; 93005; 99284; C9113; Q9967

== ENCOUNTER 2022-09-30 15:16 | Inpatient (IN) | payer MEDICARE, OTHER, SELFPAY ==
[2022-09-30] VITALS (15 sets, daily range): BP systolic 154–182; BP diastolic 71–97; PULSE 75–97; RESP 13–40; TEMP 35.9–36.5; O2SAT 98–99; BMI 25.0; BMI 25.2
[2022-09-30 16:28] LABS: INR 1.1 (0.9-1.3); Prothrombin Time 12.5 SECONDS (10.1-12.7)
[2022-09-30 16:29] LABS: Add Manual Diff / Slide Review NO; Basophils Absolute Auto 0 /uL (0-100); Basophils Percent Auto 0.5 % (0-2); Eosinophils Absolute Auto 300 /uL (0-450); Eosinophils Percent Auto 3.5 % (2-4); Hematocrit 29.3 % (36-46); Hemoglobin 9.8 g/dL (12.0-16.0); Lymphocytes Absolute Auto 1300 /uL (1100-4500); Lymphocytes Percent Auto 18.5 % (25-40); Mean Corpuscular HGB Conc 33.3 % (30-36); Mean Corpuscular Hemoglobin 29.8 PG (26-34); Mean Corpuscular Volume 89.4 fL (80-100); Monocytes Absolute Auto 400 /uL (0-900); Monocytes Percent Auto 5.5 % (3-14); Neutrophils Absolute Auto 5100 /uL (1500-7000); Platelet Count 276 X10^3/uL (150-400); Red Blood Cell Count 3.28 X10^6/uL (4.0-5.2); Red Cell Distribution Width 14.9 % (11.6-14.8); White Blood Cell Count 7.1 X10^3/uL (4.5-11.0)
[2022-09-30 16:31] LABS: PTT Partial Thromboplastin Tim 28 SECONDS (26-36)
[2022-09-30 16:32] LABS: Alanine Aminotransferase 22 IU/L (<35); Albumin 3.6 g/dL (3.5-5.0); Albumin Globulin Ratio 1.3 (1.0-2.8); Alkaline Phosphatase 69 U/L (38-126); Aspartate Aminotransferase 31 IU/L (14-36); Bilirubin Total 0.2 mg/dL (0.2-1.3); Blood Urea Nitrogen 12 mg/dL (7-17); Calcium 8.5 mg/dL (8.4-10.2); Carbon Dioxide 24 mmol/L (22-32); Chloride 96 mmol/L (98-107); Estimated Glomerular Filt Rate > 60 mL/min (>60); Globulin 2.8 g/dL (1.7-4.1); Glucose 134 mg/dL (80-110); HEMOLYSIS < 15 (0-50); Potassium 3.6 mmol/L (3.4-5.1); Sodium 126 mmol/L (137-145); Total Protein 6.4 g/dL (6.3-8.2)
[2022-09-30] MEDS: PANTOPRAZOLE 40 MG VIAL 80 MG IV (17:39)
--- NOTE | 2022-09-30 18:03 | ED.GIBLEED ---
HPI - GI Bleed General Chief complaint: GI Bleed Stated complaint: Nausea/headach t-0- Time Seen by Provider: 09/30/22 18:03 Source: patient Mode of arrival: Ambulatory History of Present Illness HPI Narrative: 77-year-old female nonsmoker with history of hypertension and recent diagnosis of early diverticulitis presents with a chief complaint of ongoing painless bright red blood per rectum. She was started on Cipro and Flagyl and still has bright red blood with her stools and just isn't feeling right complaining of a vague headache and slightly dizzy. Related Data Home Medications Medication Instructions Recorded Confirmed metoprolol succinate 25 mg 12.5 mg PO BID 07/25/21 09/30/22 tablet,extended release 24 hr simvastatin 20 mg tablet 20 mg PO DAILY 07/25/21 07/24/22 valsartan 40 mg tablet 40 mg PO BID 11/16/21 07/24/22 simvastatin 20 mg tablet 20 mg PO ONCE PM 09/30/22 09/30/22 Previous Rx's Medication Instructions Recorded omeprazole 20 mg capsule,delayed 20 mg PO DAILY #90 caps 03/27/22 release levothyroxine 100 mcg tablet 100 mcg PO QDAY #90 tabs 05/30/22 meloxicam 7.5 mg tablet 7.5 mg PO DAILY PRN pain #90 tabs 05/30/22 lifgqchmae-bnufhuwhvvyqg-vpyzoetq 2 tab PO .QD PRN pain #30 tabs 09/22/22 50 mg-325 mg-40 mg tablet ciprofloxacin HCl 500 mg tablet 500 mg PO BID #20 tabs 09/28/22 metronidazole 500 mg tablet 500 mg PO Q8H #30 tabs 09/28/22 Allergies Allergy/AdvReac Type Severity Reaction Status Date / Time amlodipine AdvReac Mild Edema Verified 09/28/22 07:23 Review of Systems Review of Systems Narrative: GENERAL: See HPI HEENT: Denies sinus pain, ear pain, sore throat, difficulty swallowing, dizziness. RESPIRATORY: Denies dyspnea, cough, wheezing, hemoptysis, sputum. CARDIOVASCULAR: Denies chest pain, palpitations, orthopnea, edema, GASTROINTESTINAL: See HPI : Denies dysuria, frequency, incontinence, hematuria, urinary retention. MUSCULOSKELETAL: denies weakness, joint pain, or bony pain SKIN: Denies rash, skin lesions, or other NEUROLOGIC: See HPI. PSYCHIATRIC: No concerning psychosocial issues. 12 point review of systems is negative except for those stated above Patient History Medical History Arthralgia Atrial flutter Concussion Diverticular disease Gluten enteropathy Hypertension (04/22/15) Microcytic hypochromic anemia Migraine without status migrainosus, not intractable (04/22/15) Primary osteoarthritis involving multiple joints (04/22/15) Pure hypercholesterolemia (04/22/15) Unilateral hearing loss Ventricular bigeminy (08/25/15) Surgical History S/P laminectomy with spinal fusion Status post endoscopy (06/19/13) Status post ovarian cystectomy (~1969) Family History Mother No problems noted. Social History marital status: household members: spouse education level: college occupational status: other Smoking Status: Never smoker alcohol intake: current Smoking Status: Never smoker alcohol intake frequency: 0-2 drinks per day Alcohol type: wine Substance Use Type: does not use Exam Narrative Exam Narrative: GENERAL: [77] year old patient appears stated age. Well-developed patient, in mild distress. HEAD: Atraumatic. Normocephalic. EYES: Pupils equal round and reactive. Extraocular motions intact. No scleral icterus. No injection or drainage. ENT: Dry mucous membranes Nose without bleeding, purulent drainage. Throat without erythema, tonsillar hypertrophy or exudate. Airway patent. NECK: Trachea midline. Non tender CARDIOVASCULAR: Regular rate and rhythm without murmurs, gallops, or rubs. RESPIRATORY: Clear to auscultation. Breath sounds equal bilaterally. No wheezes, rales, or rhonchi. GASTROINTESTINAL: Abdomen soft, non-tender, nondistended. EXTREMITIES: No edema or joint tenderness. BACK: Nontender without deformity or crepitance. No flank tenderness. NEURO: AOx3. SKIN: Poor skin turgor No rash or erythema of visible areas Initial Vital Signs Initial Vital Signs: Vital Signs Temperature 97.7 F 09/30/22 15:20 Pulse Rate 75 08/19/23 15:20 Respiratory Rate 20 09/30/22 15:20 Blood Pressure 156/71 H 09/30/22 15:20 Pulse Oximetry 99 09/30/22 15:20 Oxygen Delivery Method Room Air 09/30/22 15:20 Course Orders Ordered: ED Orders 09/30/22 18:20 HH [Hemoglobin and Hematocrit] Stat 09/30/22 20:21 BMP [Basic Metabolic Panel] Stat CBC Auto Diff [Complete Blood Count AUTO DIFF] Stat 09/30/22 21:32 UA dip [Urinalysis Screen (Dip Only)] Stat Acetaminophen (Acetaminophen 325 Mg Tablet) 650 mg PO Q6H PRN PRN Reason: Fever/Mild Pain (1-3) Atorvastatin Calcium (Atorvastatin 20 Mg Tablet) 10 mg PO BEDTIME JULIET Ciprofloxacin (Ciprofloxacin 250 Mg Tablet) 500 mg PO 0700,2100 COUNTS INCLUDE 234 BEDS AT THE [facility] Sodium Chloride (Normal Saline 0.9%) 1,000 mls @ 100 mls/hr IV CONT JULIET Last Admin: 09/30/22 23:50 Dose: 100 mls/hr Documented By: SR Levothyroxine Sodium (Levothyroxine 100 Mcg Tablet) 100 mcg PO 0600 COUNTS INCLUDE 234 BEDS AT THE [facility] Metoprolol Succinate (Metoprolol Er 25 Mg Tablet) 12.5 mg PO BID JULIET Metronidazole (Metronidazole 500 Mg Tablet) 500 mg PO BID COUNTS INCLUDE 234 BEDS AT THE [facility] Last Admin: 10/01/22 00:04 Dose: 500 mg Documented By: SR Naloxone HCl (Naloxone 0.4 Mg/Ml Vial) 0.2 mg IV Q2MIN PRN PRN Reason: Opiate Reversal Pantoprazole Sodium (Pantoprazole Dr 20 Mg Tablet) 20 mg PO 0600 COUNTS INCLUDE 234 BEDS AT THE [facility] Valsartan (Valsartan 80 Mg Tablet) 40 mg PO BID COUNTS INCLUDE 234 BEDS AT THE [facility] Discontinued Medications Acetaminophen (Acetaminophen 325 Mg Tablet) 650 mg PO NOW ONE Stop: 09/30/22 20:34 Last Admin: 09/30/22 20:35 Dose: 650 mg Documented By: SB Sodium Chloride (Normal Saline 0.9%) 1,000 mls @ 1,000 mls/hr IV BOLUS ONE Stop: 09/30/22 19:37 Last Infusion: 09/30/22 20:24 Dose: 0 mls/hr Documented By: Admin: 09/30/22 19:21 Dose: 1,000 mls/hr Documented By: ST Ondansetron HCl (Ondansetron 4 Mg/2 Ml Inj) 4 mg IV NOW PRN PRN Reason: Nausea And Vomiting Ondansetron HCl (Ondansetron 4 Mg Odt) 4 mg SL NOW PRN PRN Reason: Nausea And Vomiting Pantoprazole Sodium (Pantoprazole 40 Mg Vial) 80 mg IV NOW ONE Stop: 09/30/22 16:17 Last Admin: 09/30/22 17:39 Dose: 80 mg Documented By: ST Vital Signs Vital signs: Vital Signs - 8 hr 09/30/22 19:18 09/30/22 19:18 09/30/22 19:30 Pulse Rate 83 Respiratory Rate 19 Blood Pressure 154/74 H 159/82 H Pulse Oximetry 99 Oxygen Delivery Method 09/30/22 19:30 09/30/22 20:00 09/30/22 20:00 Pulse Rate 88 80 Respiratory Rate 22 21 Blood Pressure 155/79 H Pulse Oximetry 98 Oxygen Delivery Method Room Air 09/30/22 20:30 09/30/22 20:38 09/30/22 20:38 Pulse Rate 75 82 Respiratory Rate 13 21 Blood Pressure 162/84 H Pulse Oximetry 99 98 Oxygen Delivery Method 09/30/22 21:00 09/30/22 21:00 09/30/22 21:30 Pulse Rate 80 77 Respiratory Rate 17 20 Blood Pressure 163/84 H Pulse Oximetry 99 98 Oxygen Delivery Method 09/30/22 21:31 09/30/22 21:31 Pulse Rate 80 Respiratory Rate 24 Blood Pressure 157/95 H Pulse Oximetry 98 Oxygen Delivery Method MDM - GI Bleed Lab Data 09/30/22 20:21 09/30/22 20:21 Labs: Lab Results 09/30/22 09/30/22 09/30/22 Range/Units 15:50 15:50 15:50 WBC 7.1 (4.5-11.0) X10^3/uL RBC 3.28 L (4.0-5.2) X10^6/uL Hgb 9.8 L (12.0-16.0) g/dL Hct 29.3 L (36-46) % MCV 89.4 (80-100) fL MCH 29.8 (26-34) PG MCHC 33.3 (30-36) % RDW 14.9 H (11.6-14.8) % Plt Count 276 (150-400) X10^3/uL Neut % (Auto) 72.0 (50-75) % Lymph % (Auto) 18.5 L (25-40) % [place] % (Auto) 5.5 (3-14) % Eos % (Auto) 3.5 (2-4) % Baso % (Auto) 0.5 (0-2) % Neut # (Auto) 5100 (0690-7615) /uL Lymph # (Auto) 1300 (9347-3641) /uL [place] # (Auto) 400 (0-900) /uL Eos # (Auto) 300 (0-450) /uL Baso # (Auto) 0 (0-100) /uL PT 12.5 (10.1-12.7) SECONDS INR 1.1 (0.9-1.3) APTT 28 (26-36) SECONDS Sodium 126 L (137-145) mmol/L Potassium 3.6 (3.4-5.1) mmol/L Chloride 96 L (98-107) mmol/L Carbon Dioxide 24 (22-32) mmol/L BUN 12 (7-17) mg/dL Creatinine 0.60 (0.52-1.04) mg/dL Estimated GFR > 60 (>60) mL/min BUN/Creatinine Ratio 20.0 (6-22) Glucose 134 H (80-110) mg/dL Calcium 8.5 (8.4-10.2) mg/dL Total Bilirubin 0.2 (0.2-1.3) mg/dL AST 31 (14-36) IU/L ALT 22 (<35) IU/L Alkaline Phosphatase 69 (38-126) U/L Total Protein 6.4 (6.3-8.2) g/dL Albumin 3.6 (3.5-5.0) g/dL Globulin 2.8 (1.7-4.1) g/dL Albumin/Globulin Ratio 1.3 (1.0-2.8) Urine Color Urine Appearance Urine pH (4.5-8.0) Ur Specific [place] (1.000-1.035) Urine Protein (Negative) Urine Glucose (UA) (Negative) g/dL Urine Ketones (NEGATIVE) Urine Occult Blood (Negative) Urine Nitrate (Negative) Urine Bilirubin (NEGATIVE) Urine Urobilinogen (0.2) E.U./dL Ur Leukocyte Esterase (NEGATIVE) Blood Type Antibody Screen 09/30/22 09/30/22 09/30/22 Range/Units 15:50 18:20 20:21 WBC 5.8 (4.5-11.0) X10^3/uL RBC 2.68 L (4.0-5.2) X10^6/uL Hgb 9.8 L 8.1 L (12.0-16.0) g/dL Hct 28.5 L 23.7 L (36-46) % MCV 88.6 (80-100) fL MCH 30.4 (26-34) PG MCHC 34.3 (30-36) % RDW 14.5 (11.6-14.8) % Plt Count 235 (150-400) X10^3/uL Neut % (Auto) 62.8 (50-75) % Lymph % (Auto) 22.5 L (25-40) % [place] % (Auto) 9.2 (3-14) % Eos % (Auto) 5.0 H (2-4) % Baso % (Auto) 0.5 (0-2) % Neut # (Auto) 3600 (0040-3812) /uL Lymph # (Auto) 1300 (7774-7123) /uL [place] # (Auto) 500 (0-900) /uL Eos # (Auto) 300 (0-450) /uL Baso # (Auto) 0 (0-100) /uL PT (10.1-12.7) SECONDS INR (0.9-1.3) APTT (26-36) SECONDS Sodium (137-145) mmol/L Potassium (3.4-5.1) mmol/L Chloride (98-107) mmol/L Carbon Dioxide (22-32) mmol/L BUN (7-17) mg/dL Creatinine (0.52-1.04) mg/dL Estimated GFR (>60) mL/min BUN/Creatinine Ratio (6-22) Glucose (80-110) mg/dL Calcium (8.4-10.2) mg/dL Total Bilirubin (0.2-1.3) mg/dL AST (14-36) IU/L ALT (<35) IU/L Alkaline Phosphatase (38-126) U/L Total Protein (6.3-8.2) g/dL Albumin (3.5-5.0) g/dL Globulin (1.7-4.1) g/dL Albumin/Globulin Ratio (1.0-2.8) Urine Color Urine Appearance Urine pH (4.5-8.0) Ur Specific [place] (1.000-1.035) Urine Protein (Negative) Urine Glucose (UA) (Negative) g/dL Urine Ketones (NEGATIVE) Urine Occult Blood (Negative) Urine Nitrate (Negative) Urine Bilirubin (NEGATIVE) Urine Urobilinogen (0.2) E.U./dL Ur Leukocyte Esterase (NEGATIVE) Blood Type O Positive Antibody Screen Negative 09/30/22 09/30/22 Range/Units 20:21 21:32 WBC (4.5-11.0) X10^3/uL RBC (4.0-5.2) X10^6/uL Hgb (12.0-16.0) g/dL Hct (36-46) % MCV (80-100) fL MCH (26-34) PG MCHC (30-36) % RDW (11.6-14.8) % Plt Count (150-400) X10^3/uL Neut % (Auto) (50-75) % Lymph % (Auto) (25-40) % [place] % (Auto) (3-14) % Eos % (Auto) (2-4) % Baso % (Auto) (0-2) % Neut # (Auto) (6687-4754) /uL Lymph # (Auto) (7799-3820) /uL [place] # (Auto) (0-900) /uL Eos # (Auto) (0-450) /uL Baso # (Auto) (0-100) /uL PT (10.1-12.7) SECONDS INR (0.9-1.3) APTT (26-36) SECONDS Sodium 128 L (137-145) mmol/L Potassium 3.8 (3.4-5.1) mmol/L Chloride 103 (98-107) mmol/L Carbon Dioxide 21 L (22-32) mmol/L BUN 11 (7-17) mg/dL Creatinine 0.47 L (0.52-1.04) mg/dL Estimated GFR > 60 (>60) mL/min BUN/Creatinine Ratio 23.4 H (6-22) Glucose 88 (80-110) mg/dL Calcium 7.2 L (8.4-10.2) mg/dL Total Bilirubin (0.2-1.3) mg/dL AST (14-36) IU/L ALT (<35) IU/L Alkaline Phosphatase (38-126) U/L Total Protein (6.3-8.2) g/dL Albumin (3.5-5.0) g/dL Globulin (1.7-4.1) g/dL Albumin/Globulin Ratio (1.0-2.8) Urine Color Yellow Urine Appearance Clear Urine pH 6.0 (4.5-8.0) Ur Specific [place] 1.015 (1.000-1.035) Urine Protein Negative (Negative) Urine Glucose (UA) Negative (Negative) g/dL Urine Ketones 1+ H (NEGATIVE) Urine Occult Blood Negative (Negative) Urine Nitrate Negative (Negative) Urine Bilirubin Negative (NEGATIVE) Urine Urobilinogen 0.2 (0.2) E.U./dL Ur Leukocyte Esterase Negative (NEGATIVE) Blood Type Antibody Screen MDM Narrative Medical decision making narrative: CC: 69-year-old female dizzy, lightheaded with ongoing GI bleed Complicating co-morbidities: Age, known diverticulitis Data collected from: Patient Medical records reviewed: Prior notes reviewed in our EMR Differential considered, but not limited to: Ongoing GI bleed, need for transfusion, symptomatic anemia versus symptomatic hyponatremia versus other Exam documented above, pertinent findings include: Heart rate regular, lungs clear, abdomen soft, poor skin turgor and dry mucous membranes Lab Test results independently reviewed as above. Pertinent findings: No leukocytosis or left shift, initial hemoglobin 9.8 and hematocrit 28.5 down from 12.4 and 36 Consultations: Discussed with on-call surgery, Dr. Vidales. She recommends admission to the hospitalist, okay to eat, will play a role in consultation. Discussed with hospitalist who is happy to accept on her service Treatments: Protonix and fluids Re-evaluations: She is feeling better after fluids Discussion: 69-year-old with recent diagnosis diverticulitis presents lightheaded and fatigued continuing rectal bleeding. She is found to be anemic in his dropped at least 3-4 g of hemoglobin since she was seen a few days ago. She is hemodynamically stable. Typically slightly hyponatremic but worse today with initial at 1:26 a.m. that improved to 128 after fluids. She requires hospitalization for further treatment, stabilization and diagnostic modalities. Patient understands and agrees with the diagnosis and plan Discharge Plan Departure Patient Disposition: Admitted As Inpatient Clinical Impression: Acute lower gastrointestinal bleeding, Acute hyponatremia, Diverticulitis Admit Date/Time: 09/30/22 21:41 Admit Provider: Mary Ramirez
[2022-09-30 18:28] LABS: Hematocrit 28.5 % (36-46); Hemoglobin 9.8 g/dL (12.0-16.0)
[2022-09-30] MEDS: SODIUM CHLORIDE 0.9% 1,000 ML 1000 ML IV (19:21)
[2022-09-30] MEDS: ACETAMINOPHEN 325 MG TABLET 650 MG PO (20:35)
[2022-09-30 20:48] LABS: Add Manual Diff / Slide Review NO; Basophils Absolute Auto 0 /uL (0-100); Basophils Percent Auto 0.5 % (0-2); Eosinophils Absolute Auto 300 /uL (0-450); Hematocrit 23.7 % (36-46); Hemoglobin 8.1 g/dL (12.0-16.0); Lymphocytes Absolute Auto 1300 /uL (1100-4500); Lymphocytes Percent Auto 22.5 % (25-40); Mean Corpuscular HGB Conc 34.3 % (30-36); Mean Corpuscular Hemoglobin 30.4 PG (26-34); Mean Corpuscular Volume 88.6 fL (80-100); Monocytes Absolute Auto 500 /uL (0-900); Monocytes Percent Auto 9.2 % (3-14); Neutrophils Absolute Auto 3600 /uL (1500-7000); Neutrophils Percent Auto 62.8 % (50-75); Platelet Count 235 X10^3/uL (150-400); Red Blood Cell Count 2.68 X10^6/uL (4.0-5.2); Red Cell Distribution Width 14.5 % (11.6-14.8); White Blood Cell Count 5.8 X10^3/uL (4.5-11.0)
[2022-09-30 20:54] LABS: BUN Creatinine Ratio 23.4 (6-22); Blood Urea Nitrogen 11 mg/dL (7-17); Calcium 7.2 mg/dL (8.4-10.2); Carbon Dioxide 21 mmol/L (22-32); Chloride 103 mmol/L (98-107); Estimated Glomerular Filt Rate > 60 mL/min (>60); Glucose 88 mg/dL (80-110); HEMOLYSIS < 15 (0-50); Potassium 3.8 mmol/L (3.4-5.1); Sodium 128 mmol/L (137-145)
[2022-09-30 21:50] LABS: Appearance Urine UA CLEAR; Bilirubin Urine UA NEGATIVE (NEGATIVE); Color Urine UA YELLOW; Glucose Urine UA NEGATIVE (Negative); Ketones Urine UA 1+ (NEGATIVE); Leukocyte Esterase Urine UA NEGATIVE (NEGATIVE); Nitrite Urine UA NEGATIVE (Negative); Occult Blood Urine UA NEGATIVE (Negative); Protein Urine UA NEGATIVE (Negative); Specific Gravity Urine UA 1.015 (1.000-1.035); Urobilinogen Urine UA 0.2 E.U./dL (0.2)
[2022-09-30] MEDS: SODIUM CHLORIDE 0.9% 1,000 ML 100 ML IV (23:50)
[2022-10-01] VITALS (13 sets, daily range): BP systolic 137–192; BP diastolic 69–110; PULSE 68–98; RESP 18–20; TEMP 35.8–36.7; O2SAT 97–100
[2022-10-01] MEDS: metroNIDAZOLE 500 MG TABLET PO ×3 (00:04→20:46)
--- NOTE | 2022-10-01 00:09 | PM.HP.1 ---
History of Present Illness History of Present Illness Date Patient Seen: 10/01/22 Time Patient Seen: 00:09 Chief complaint: Nausea/headach t-0- Narrative: 77 year old with history of HTN, diverticulutis in past, thyroid disease atrial flutter post ablation not on anticoagulants, hyponatremia here for second time in 3 days for rectal bleeding. She states that she has diverticulitis on and off over the years treated with antibitics but never bleeding before. She initially had cramping with the bleeding but the cramping has resolved and the bleeding has decreased but not gone away. She was seen [address] abd revealed early diverticulitis and she was started on cipro and flagyl. She states that today she felt dizzy and had some headache and weakness. As she was still seeing some blood her made her return to be seen. Her hgb is down 3 grams and currently sits at 8. Her Na was lower than her baseline of 131-132 as well. She states she takes the nongeneric form of chlorathalidone per her digital assistant as it is the only thing that has ever worked to hold down her blood albeit with lower Na. The generic form dropped her Na too much. She was given fluids in the ED and her Na is currently 128. She denies chest pain, dyspnea, fever or dysuria and actually feels better currently. The ED spoke with Dr. Vidales who stated she could eat and a colonoscopy could be performed when things settles down a bit. [facility] Medical History Arthralgia Atrial flutter Concussion Diverticular disease Gluten enteropathy Hypertension (04/22/15) Microcytic hypochromic anemia Migraine without status migrainosus, not intractable (04/22/15) Primary osteoarthritis involving multiple joints (04/22/15) Pure hypercholesterolemia (04/22/15) Unilateral hearing loss Ventricular bigeminy (08/25/15) Surgical History S/P laminectomy with spinal fusion Status post endoscopy (06/19/13) Status post ovarian cystectomy (~1969) Family History Mother No problems noted. Social History marital status: household members: spouse education level: college occupational status: other Smoking Status: Never smoker alcohol intake: current Meds Home Medications and Allergies Home Medications Medication Instructions Recorded Confirmed Type metoprolol succinate 25 mg 12.5 mg PO BID 07/25/21 09/30/22 History tablet,extended release 24 hr simvastatin 20 mg tablet 20 mg PO DAILY 07/25/21 07/24/22 History valsartan 40 mg tablet 40 mg PO BID 11/16/21 07/24/22 History omeprazole 20 mg capsule,delayed 20 mg PO DAILY #90 caps 03/27/22 07/24/22 Rx release levothyroxine 100 mcg tablet 100 mcg PO QDAY #90 tabs 05/30/22 09/30/22 Rx meloxicam 7.5 mg tablet 7.5 mg PO DAILY PRN pain #90 tabs 05/30/22 09/30/22 Rx glvaxwgphq-imgkwtipobzuq-ytjtkavf 2 tab PO .QD PRN pain #30 tabs 09/22/22 09/30/22 Rx 50 mg-325 mg-40 mg tablet ciprofloxacin HCl 500 mg tablet 500 mg PO BID #20 tabs 09/28/22 09/30/22 Rx metronidazole 500 mg tablet 500 mg PO Q8H #30 tabs 09/28/22 Rx simvastatin 20 mg tablet 20 mg PO ONCE PM 09/30/22 09/30/22 History Allergies Allergy/AdvReac Type Severity Reaction Status Date / Time amlodipine AdvReac Mild Edema Verified 09/28/22 07:23 Review of Systems Eyes Comments: no vision change Cardiovascular Comments: no chest pain Respiratory Comments: no dyspnea Gastrointestinal Comments: no vomiting + abd pain +blood in stool no diarrhea Genitourinary Comments: no dysuria Neurologic Comments: + dizziness + headache, no focal weakness Exam Vital Signs (past 8 hours): - 09/30/22 18:16 09/30/22 18:30 09/30/22 19:00 Temperature Pulse Rate 85 95 H 79 Respiratory Rate 30 H 40 H 22 Blood Pressure 182/97 H Pulse Oximetry 98 99 98 Oxygen Delivery Method 09/30/22 19:18 09/30/22 19:18 09/30/22 19:30 Temperature Pulse Rate 83 Respiratory Rate 19 Blood Pressure 154/74 H 159/82 H Pulse Oximetry 99 Oxygen Delivery Method 09/30/22 19:30 09/30/22 20:00 09/30/22 20:00 Temperature Pulse Rate 88 80 Respiratory Rate 22 21 Blood Pressure 155/79 H Pulse Oximetry 98 Oxygen Delivery Method Room Air 09/30/22 20:30 09/30/22 20:38 09/30/22 20:38 Temperature Pulse Rate 75 82 Respiratory Rate 13 21 Blood Pressure 162/84 H Pulse Oximetry 99 98 Oxygen Delivery Method 09/30/22 21:00 09/30/22 21:00 09/30/22 21:30 Temperature Pulse Rate 80 77 Respiratory Rate 17 20 Blood Pressure 163/84 H Pulse Oximetry 99 98 Oxygen Delivery Method 09/30/22 21:31 09/30/22 21:31 09/30/22 22:00 Temperature Pulse Rate 80 Respiratory Rate 24 Blood Pressure 157/95 H 156/91 H Pulse Oximetry 98 Oxygen Delivery Method 09/30/22 22:00 09/30/22 22:25 Temperature 96.6 F L Pulse Rate 86 97 H Respiratory Rate 21 20 Blood Pressure 168/81 H Pulse Oximetry 99 98 Oxygen Delivery Method Oxygen Delivery Method Room Air Const Nutritional Appearance: average body habitus Orientation: oriented x3 HENIA Head: normal to inspection Face and sinus: normal facial exam Mouth: lip normal Eyes Periorbital: periorbital findings normal Eyelids: eyelids normal Sclera: sclerae normal Pupils: PERRL Resp Auscultation: clear to auscultation bilaterally Cardio Rate: regular rate Rhythm: regular rhythm Heart Sounds: S1 normal and S2 normal GI Palpation: soft, No guarding, No hernia, No mass, No rigid, No tender and No ascites Percussion: normal to percussion Auscultation: normal bowel sounds Skin Rashes: no rashes Neuro Cognition: normal cognition Speech: speech normal Motor: muscle tone normal throughout Sensory Exam: no sensory deficits noted Psych Mental Status: mental status grossly normal Affect: normal affect Const Nutritional Appearance: average body habitus Orientation: oriented x3 HENIA Head: normal to inspection Face and sinus: normal facial exam Mouth: lip normal Eyes Periorbital: periorbital findings normal Eyelids: eyelids normal Sclera: sclerae normal Pupils: PERRL Resp Auscultation: clear to auscultation bilaterally Cardio Rate: regular rate Rhythm: regular rhythm Heart Sounds: S1 normal and S2 normal GI Palpation: soft, no guarding, no hernias, no masses, not rigid, nontender and No ascites Percussion: normal to percussion Auscultation: normal bowel sounds Skin Rashes: no rashes Neuro Cognition: normal cognition Speech: speech normal Motor: muscle tone normal throughout Sensory Exam: no sensory deficits noted Psych Mental Status: mental status grossly normal Affect: normal affect Objective Labs 09/30/22 20:21 09/30/22 20:21 Labs: Laboratory Results - last 24 hr 09/30/22 09/30/22 09/30/22 15:50 15:50 15:50 WBC 7.1 RBC 3.28 L Hgb 9.8 L Hct 29.3 L MCV 89.4 MCH 29.8 MCHC 33.3 RDW 14.9 H Plt Count 276 Neut % (Auto) 72.0 Lymph % (Auto) 18.5 L [place] % (Auto) 5.5 Eos % (Auto) 3.5 Baso % (Auto) 0.5 Neut # (Auto) 5100 Lymph # (Auto) 1300 [place] # (Auto) 400 Eos # (Auto) 300 Baso # (Auto) 0 PT 12.5 INR 1.1 APTT 28 Sodium 126 L Potassium 3.6 Chloride 96 L Carbon Dioxide 24 BUN 12 Creatinine 0.60 Estimated GFR > 60 BUN/Creatinine Ratio 20.0 Glucose 134 H Calcium 8.5 Total Bilirubin 0.2 AST 31 ALT 22 Alkaline Phosphatase 69 Total Protein 6.4 Albumin 3.6 Globulin 2.8 Albumin/Globulin Ratio 1.3 Urine Color Urine Appearance Urine pH Ur Specific [place] Urine Protein Urine Glucose (UA) Urine Ketones Urine Occult Blood Urine Nitrate Urine Bilirubin Urine Urobilinogen Ur Leukocyte Esterase Blood Type Antibody Screen 09/30/22 09/30/22 09/30/22 15:50 18:20 20:21 WBC 5.8 RBC 2.68 L Hgb 9.8 L 8.1 L Hct 28.5 L 23.7 L MCV 88.6 MCH 30.4 MCHC 34.3 RDW 14.5 Plt Count 235 Neut % (Auto) 62.8 Lymph % (Auto) 22.5 L [place] % (Auto) 9.2 Eos % (Auto) 5.0 H Baso % (Auto) 0.5 Neut # (Auto) 3600 Lymph # (Auto) 1300 [place] # (Auto) 500 Eos # (Auto) 300 Baso # (Auto) 0 PT INR APTT Sodium Potassium Chloride Carbon Dioxide BUN Creatinine Estimated GFR BUN/Creatinine Ratio Glucose Calcium Total Bilirubin AST ALT Alkaline Phosphatase Total Protein Albumin Globulin Albumin/Globulin Ratio Urine Color Urine Appearance Urine pH Ur Specific [place] Urine Protein Urine Glucose (UA) Urine Ketones Urine Occult Blood Urine Nitrate Urine Bilirubin Urine Urobilinogen Ur Leukocyte Esterase Blood Type O Positive Antibody Screen Negative 09/30/22 09/30/22 20:21 21:32 WBC RBC Hgb Hct MCV MCH MCHC RDW Plt Count Neut % (Auto) Lymph % (Auto) [place] % (Auto) Eos % (Auto) Baso % (Auto) Neut # (Auto) Lymph # (Auto) [place] # (Auto) Eos # (Auto) Baso # (Auto) PT INR APTT Sodium 128 L Potassium 3.8 Chloride 103 Carbon Dioxide 21 L BUN 11 Creatinine 0.47 L Estimated GFR > 60 BUN/Creatinine Ratio 23.4 H Glucose 88 Calcium 7.2 L Total Bilirubin AST ALT Alkaline Phosphatase Total Protein Albumin Globulin Albumin/Globulin Ratio Urine Color Yellow Urine Appearance Clear Urine pH 6.0 Ur Specific [place] 1.015 Urine Protein Negative Urine Glucose (UA) Negative Urine Ketones 1+ H Urine Occult Blood Negative Urine Nitrate Negative Urine Bilirubin Negative Urine Urobilinogen 0.2 Ur Leukocyte Esterase Negative Blood Type Antibody Screen Assessment & Plan Assessment and plan (1) Acute lower gastrointestinal bleeding: Status: Acute (2) Acute hyponatremia: Status: Acute (3) Diverticulitis: Status: Acute Plan Acute lower GI bleed repeat CBC in am holding NSAID Fluids overnight surgical consult called may eat will need colonoscopy Diverticulitis continue cipro and flagyl Hyponatremia continue her usual medications repeat labs in am Hypertension continue usual medications Thyroid disease continue usual medication Time Spent With Patient Time with patient: 30 to 49 minutes with 50% spent counseling/coordinating care
[2022-10-01] MEDS: PANTOPRAZOLE DR 20 MG TABLET PO (06:08)
[2022-10-01] MEDS: LEVOTHYROXINE 100 MCG TABLET PO (06:08)
[2022-10-01] MEDS: CIPROFLOXACIN 250 MG TABLET 500 MG PO ×2 (06:08→20:19)
[2022-10-01 06:45] LABS: Add Manual Diff / Slide Review NO; Basophils Absolute Auto 0 /uL (0-100); Basophils Percent Auto 0.8 % (0-2); Eosinophils Absolute Auto 300 /uL (0-450); Eosinophils Percent Auto 5.1 % (2-4); Hematocrit 26.1 % (36-46); Lymphocytes Absolute Auto 1200 /uL (1100-4500); Lymphocytes Percent Auto 20.1 % (25-40); Mean Corpuscular HGB Conc 34.4 % (30-36); Mean Corpuscular Hemoglobin 30.4 PG (26-34); Mean Corpuscular Volume 88.6 fL (80-100); Monocytes Absolute Auto 500 /uL (0-900); Monocytes Percent Auto 8.4 % (3-14); Neutrophils Absolute Auto 3900 /uL (1500-7000); Neutrophils Percent Auto 65.6 % (50-75); Platelet Count 254 X10^3/uL (150-400); Red Blood Cell Count 2.94 X10^6/uL (4.0-5.2); Red Cell Distribution Width 14.3 % (11.6-14.8); White Blood Cell Count 5.9 X10^3/uL (4.5-11.0)
[2022-10-01 06:52] LABS: Blood Urea Nitrogen 8 mg/dL (7-17); Calcium 8.2 mg/dL (8.4-10.2); Carbon Dioxide 23 mmol/L (22-32); Chloride 102 mmol/L (98-107); Estimated Glomerular Filt Rate > 60 mL/min (>60); Glucose 91 mg/dL (80-110); HEMOLYSIS < 15 (0-50); Potassium 3.8 mmol/L (3.4-5.1); Sodium 130 mmol/L (137-145)
[2022-10-01] MEDS: ACETAMINOPHEN 325 MG TABLET 650 MG PO ×3 (06:56→17:11)
--- NOTE | 2022-10-01 09:34 | PM.CALLCOV.1 ---
Call Coverage Note Note Date of Patient Contact: 10/01/22 Time of Patient Contact: 09:34 Narrative of Care Provided: EGD and colonoscopy for Sunday after bowel prep.
[2022-10-01] MEDS: METOPROLOL ER 25 MG TABLET 12.5 MG PO ×2 (09:45→20:18)
[2022-10-01] MEDS: VALSARTAN 80 MG TABLET 40 MG PO ×2 (09:45→20:19)
--- NOTE | 2022-10-01 14:38 | PM.PN.1 ---
Subjective Subjective Date Patient Seen: 10/01/22 Time Patient Seen: 08:00 Interval history: Her dizzines is resolved. Her abdominal pain is improved. However she continues to have bright red blood with each bowel movement. Exam Vital Signs (past 8 hours): - 10/01/22 07:00 10/01/22 11:00 10/01/22 10:00 Temperature 97.9 F 98.0 F Pulse Rate 81 81 Respiratory Rate 18 18 Blood Pressure 139/85 141/77 H Pulse Oximetry 97 98 98 Oxygen Delivery Method Room Air Oxygen Flow Rate 0 0 Oxygen Delivery Method Room Air Oxygen Flow Rate 0 Narrative Exam Narrative: GEN: no acute distress CV: regular rate and rhythm, no murmurs PULM: clear bilaterally, no wheezes, rhonchi, rales ABD: soft, nontender, nondistended EXT: warm and well perfused NEURO: awake, alert, oriented Objective Labs 10/01/22 05:50 10/01/22 05:50 Labs: Laboratory Results - last 24 hr 09/30/22 09/30/22 09/30/22 15:50 15:50 15:50 WBC 7.1 RBC 3.28 L Hgb 9.8 L Hct 29.3 L MCV 89.4 MCH 29.8 MCHC 33.3 RDW 14.9 H Plt Count 276 Neut % (Auto) 72.0 Lymph % (Auto) 18.5 L [place] % (Auto) 5.5 Eos % (Auto) 3.5 Baso % (Auto) 0.5 Neut # (Auto) 5100 Lymph # (Auto) 1300 [place] # (Auto) 400 Eos # (Auto) 300 Baso # (Auto) 0 PT 12.5 INR 1.1 APTT 28 Sodium 126 L Potassium 3.6 Chloride 96 L Carbon Dioxide 24 BUN 12 Creatinine 0.60 Estimated GFR > 60 BUN/Creatinine Ratio 20.0 Glucose 134 H Calcium 8.5 Total Bilirubin 0.2 AST 31 ALT 22 Alkaline Phosphatase 69 Total Protein 6.4 Albumin 3.6 Globulin 2.8 Albumin/Globulin Ratio 1.3 Urine Color Urine Appearance Urine pH Ur Specific [place] Urine Protein Urine Glucose (UA) Urine Ketones Urine Occult Blood Urine Nitrate Urine Bilirubin Urine Urobilinogen Ur Leukocyte Esterase Blood Type Antibody Screen 09/30/22 09/30/22 09/30/22 15:50 18:20 20:21 WBC 5.8 RBC 2.68 L Hgb 9.8 L 8.1 L Hct 28.5 L 23.7 L MCV 88.6 MCH 30.4 MCHC 34.3 RDW 14.5 Plt Count 235 Neut % (Auto) 62.8 Lymph % (Auto) 22.5 L [place] % (Auto) 9.2 Eos % (Auto) 5.0 H Baso % (Auto) 0.5 Neut # (Auto) 3600 Lymph # (Auto) 1300 [place] # (Auto) 500 Eos # (Auto) 300 Baso # (Auto) 0 PT INR APTT Sodium Potassium Chloride Carbon Dioxide BUN Creatinine Estimated GFR BUN/Creatinine Ratio Glucose Calcium Total Bilirubin AST ALT Alkaline Phosphatase Total Protein Albumin Globulin Albumin/Globulin Ratio Urine Color Urine Appearance Urine pH Ur Specific [place] Urine Protein Urine Glucose (UA) Urine Ketones Urine Occult Blood Urine Nitrate Urine Bilirubin Urine Urobilinogen Ur Leukocyte Esterase Blood Type O Positive Antibody Screen Negative 09/30/22 09/30/22 10/01/22 20:21 21:32 05:50 WBC 5.9 RBC 2.94 L Hgb 9.0 L Hct 26.1 L MCV 88.6 MCH 30.4 MCHC 34.4 RDW 14.3 Plt Count 254 Neut % (Auto) 65.6 Lymph % (Auto) 20.1 L [place] % (Auto) 8.4 Eos % (Auto) 5.1 H Baso % (Auto) 0.8 Neut # (Auto) 3900 Lymph # (Auto) 1200 [place] # (Auto) 500 Eos # (Auto) 300 Baso # (Auto) 0 PT INR APTT Sodium 128 L Potassium 3.8 Chloride 103 Carbon Dioxide 21 L BUN 11 Creatinine 0.47 L Estimated GFR > 60 BUN/Creatinine Ratio 23.4 H Glucose 88 Calcium 7.2 L Total Bilirubin AST ALT Alkaline Phosphatase Total Protein Albumin Globulin Albumin/Globulin Ratio Urine Color Yellow Urine Appearance Clear Urine pH 6.0 Ur Specific [place] 1.015 Urine Protein Negative Urine Glucose (UA) Negative Urine Ketones 1+ H Urine Occult Blood Negative Urine Nitrate Negative Urine Bilirubin Negative Urine Urobilinogen 0.2 Ur Leukocyte Esterase Negative Blood Type Antibody Screen 10/01/22 05:50 WBC RBC Hgb Hct MCV MCH MCHC RDW Plt Count Neut % (Auto) Lymph % (Auto) [place] % (Auto) Eos % (Auto) Baso % (Auto) Neut # (Auto) Lymph # (Auto) [place] # (Auto) Eos # (Auto) Baso # (Auto) PT INR APTT Sodium 130 L Potassium 3.8 Chloride 102 Carbon Dioxide 23 BUN 8 Creatinine 0.47 L Estimated GFR > 60 BUN/Creatinine Ratio 17.0 Glucose 91 Calcium 8.2 L Total Bilirubin AST ALT Alkaline Phosphatase Total Protein Albumin Globulin Albumin/Globulin Ratio Urine Color Urine Appearance Urine pH Ur Specific [place] Urine Protein Urine Glucose (UA) Urine Ketones Urine Occult Blood Urine Nitrate Urine Bilirubin Urine Urobilinogen Ur Leukocyte Esterase Blood Type Antibody Screen [facility] Medical History Arthralgia Atrial flutter Concussion Diverticular disease Gluten enteropathy Hypertension (04/22/15) Microcytic hypochromic anemia Migraine without status migrainosus, not intractable (04/22/15) Primary osteoarthritis involving multiple joints (04/22/15) Pure hypercholesterolemia (04/22/15) Unilateral hearing loss Ventricular bigeminy (08/25/15) Surgical History S/P laminectomy with spinal fusion Status post endoscopy (06/19/13) Status post ovarian cystectomy (~1969) Family History Mother No problems noted. Social History marital status: household members: spouse education level: college occupational status: other Smoking Status: Never smoker alcohol intake: current Assessment & Plan Assessment and plan (1) Acute lower gastrointestinal bleeding: Status: Acute (2) Acute hyponatremia: Status: Acute (3) Diverticulitis: Status: Acute Plan Acute lower GI bleed repeat CBC in am showed hemoglobin rising to approximately 9 surgery consulted and plan for scope to evaluate source of bleed Diverticulitis continue cipro and flagyl Hyponatremia IV fluids while on the GI prep Hypertension continue usual medications Thyroid disease continue usual medication Time Spent With Patient Time with patient: 30 to 49 minutes with 50% spent counseling/coordinating care
[2022-10-01] MEDS: PEG3350/SOD SULF,BICARB,CL/KCL 4,000 ML SOLUTION 4000 ML PO (14:50)
[2022-10-01] MEDS: SODIUM CHLORIDE 0.9% 1,000 ML 125 ML IV ×2 (16:00→23:42)
--- NOTE | 2022-10-01 16:24 | CM.DANOTE ---
Addendum entered by MANNIE Garner 10/01/22 16:42: VICE PRESIDENT OF MARKETING gave patient copy of IMM rights. Original Note: DCP Assessment Note: Patient is a 77 yo female here for potential GI bleed. Colonoscopy tomorrow 10/02. PCP Oleg Allen Medicare and [facility] VICE PRESIDENT OF MARKETING reviewed EMR. Per PN, Her abdominal pain is improved. However she continues to have bright red blood with each bowel movement. Per reclamation engineer surgical note, EGD and colonoscopy for Sunday after bowel prep. VICE PRESIDENT OF MARKETING entered room and introduced self and role. Patient was resting in chair and was A/Ox4 and was chatty and pleasant throughout interaction. Patient reports she lives at home with spouse Ernie ([phone]) who is supportive and helpful. Patient is active/independent/drives normally. Does not use DME. Patient has been up and moving since being here. Patient reports being eager to figure out the cause of the bleed. Patient reports she likely has no needs from CM team. Plan: colonoscopy and EGD Sunday. Likely d/c home with spouse when medically stable. No needs at this time. CM team will continue to follow as needed. MANNIE Garner Discharge Planning/Care Management CM Discharge Assessment Start: 10/01/22 16:19 Freq: Status: Active Protocol: Document 10/01/22 16:19 (Rec: 10/01/22 16:24 [id number]) Discharge Planning Assessment Assigned Setter Cold Rolling Machine MANNIE Bright DPOA/Assigned Designee Name Ernie (spouse) Contact Information [phone] Advance Directives? No History Provided By Patient,Medical Record Prior Living Arrangements House Household Members spouse Type of transporation used prior to Drives own vehicle admit Independent with ADL's Yes Is patient alert and oriented? Yes Barriers to Discharge No Discharge Plan Home Transportation Arrangement spouse in POV Whiteboard Updated in Patient Room with Yes name and ext. # of Setter Cold Rolling Machine Review Status In Process Next Review Type Continued Stay Review
[2022-10-01] MEDS: ONDANSETRON 4 MG/2 ML INJ IV (17:11)
[2022-10-01] MEDS: ATORVASTATIN 20 MG TABLET 10 MG PO (20:20)
[2022-10-01] MEDS: MELATONIN 3 MG TABLET 6 MG PO (23:38)
[2022-10-02] VITALS (13 sets, daily range): BP systolic 105–142; BP diastolic 53–84; PULSE 58–83; RESP 12–18; TEMP 36.1–36.6; O2SAT 93–99; BMI 25.2
--- NOTE | 2022-10-02 | PATH_ITS ---
[facility] Accession Number: [id number] No. of containers..01 Tissue . 01 Material submitted: . esophagus - GE JUNCTION . 01 Diagnosis: Gastroesophageal Junction, Biopsy: Squamcolumnar junctional mucosa with specialized intestinal metaplasia; please see comment. Negative for dysplasia or malignancy. [facility] 10/12/2022 1302 Local . 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 . 01 Electronically signed: . Kevin Robert MD, PhD, Pathologist NPI- [id number] . 01 Gross description: . GE JUNCTION: Received in formalin is 1 fragment(s) of badillo, soft tissue measuring 0.3 x 0.2 x 0.1 cm submitted entirely in 1 cassette(s) /AAY 10/05/2022 0056 Local . 01 Pathologist provided ICD-10: K22.70 . 01 CPT . 672255 Specimen Comment: A courtesy copy of this report has been sent to [phone] Performed at: 01 [facility] [address] [place] [address] [address], [place], [place] [id number] MD Ryan Jones MD Phone: [phone]
[2022-10-02] MEDS: ONDANSETRON 4 MG/2 ML INJ IV ×2 (01:11→09:25)
[2022-10-02] MEDS: PANTOPRAZOLE DR 20 MG TABLET PO (05:50)
[2022-10-02] MEDS: LEVOTHYROXINE 100 MCG TABLET PO (05:50)
[2022-10-02 06:08] LABS: Hematocrit 22.3 % (36-46); Hemoglobin 7.7 g/dL (12.0-16.0); Mean Corpuscular HGB Conc 34.4 % (30-36); Mean Corpuscular Hemoglobin 30.2 PG (26-34); Mean Corpuscular Volume 87.7 fL (80-100); Platelet Count 232 X10^3/uL (150-400); Red Blood Cell Count 2.54 X10^6/uL (4.0-5.2); Red Cell Distribution Width 14.7 % (11.6-14.8); White Blood Cell Count 5.7 X10^3/uL (4.5-11.0)
[2022-10-02 06:20] LABS: BUN Creatinine Ratio 12.8 (6-22); Blood Urea Nitrogen 6 mg/dL (7-17); Calcium 7.7 mg/dL (8.4-10.2); Carbon Dioxide 24 mmol/L (22-32); Chloride 103 mmol/L (98-107); Estimated Glomerular Filt Rate > 60 mL/min (>60); Glucose 90 mg/dL (80-110); HEMOLYSIS < 15 (0-50); Potassium 3.4 mmol/L (3.4-5.1); Sodium 129 mmol/L (137-145)
[2022-10-02] MEDS: CIPROFLOXACIN 250 MG TABLET 500 MG PO (07:29)
[2022-10-02] MEDS: SODIUM CHLORIDE 0.9% 1,000 ML 125 ML IV (07:29)
[2022-10-02] MEDS: METOPROLOL ER 25 MG TABLET 12.5 MG PO (09:25)
[2022-10-02] MEDS: ACETAMINOPHEN 325 MG TABLET 650 MG PO (09:25)
--- NOTE | 2022-10-02 09:37 | PC.NURSE ---
Addendum entered by Evelin Cai R.N. 10/02/22 13:15: Tolerating food well and patient is resting Addendum entered by Evelin Cai R.N. 10/02/22 11:26: Patient has returned from EGD/Colonoscopy and they have found a prolapsed hemorroid. Patient is aware of this. She is doing well and is comfortable. Original Note: Patient is anxious this morning. She was totally relaxed and fine prior to asking about her labs. H&H is 7.7 and 22.3. After given results. She had a headache and she said she gets this way with a low blood count and low sodium. Hers is at 129. Given Tylenol, Metoprolol, and iv zofran prior to her EGD and Colonscopy. Her stool is minimal after prep, she had a few small pieces of brown colored stool. She is resting and ready for her procedure.
[2022-10-02] MEDS: LACTATED RINGERS 1,000 ML 100 ML IV (10:11)
--- NOTE | 2022-10-02 10:14 | PM.CN ---
History of Present Illness Consult details Date Patient Seen: 10/02/22 Time Patient Seen: 10:14 Chief complaint: Nausea/headache t-0- Reason for consult: GI bleed, bright red blood Requesting provider: Constantin Matthwes Narrative: Bright red blood from rectum for the last 4 days. Anemic on arrival. Bleeding stopped during bowel prep yesterday afternoon. NO pain. Previous event 1 year ago with no source on EGD/Cscope Meds Home Medications and Allergies Home Medications Medication Instructions Recorded Confirmed Type metoprolol succinate 25 mg 12.5 mg PO BID 07/25/21 09/30/22 History tablet,extended release 24 hr omeprazole 20 mg capsule,delayed 20 mg PO DAILY #90 caps 03/27/22 10/02/22 Rx release levothyroxine 100 mcg tablet 100 mcg PO QDAY #90 tabs 05/30/22 09/30/22 Rx meloxicam 7.5 mg tablet 7.5 mg PO DAILY PRN pain #90 tabs 05/30/22 10/02/22 Rx vvmylursnp-ooschiogzpprs-ztubnqie 2 tab PO .QD PRN pain #30 tabs 09/22/22 09/30/22 Rx 50 mg-325 mg-40 mg tablet ciprofloxacin HCl 500 mg tablet 500 mg PO BID #20 tabs 09/28/22 09/30/22 Rx metronidazole 500 mg tablet 500 mg PO Q8H #30 tabs 09/28/22 10/02/22 Rx simvastatin 20 mg tablet 20 mg PO ONCE PM 09/30/22 10/02/22 History Allergies Allergy/AdvReac Type Severity Reaction Status Date / Time amlodipine AdvReac Mild Edema Verified 09/28/22 07:23 Review of Systems Review of Systems ROS: Yes All systems reviewed with the patient and are negative except as otherwise documented Exam Vital Signs (past 8 hours): - 10/02/22 03:38 10/02/22 08:00 10/02/22 10:08 Temperature 97.9 F 97.2 F L 97.0 F L Pulse Rate 58 L 82 78 Respiratory Rate 16 18 14 Blood Pressure 115/82 115/72 138/84 Pulse Oximetry 98 95 99 Oxygen Delivery Method Room Air Oxygen Delivery Method Room Air Oxygen Flow Rate 0 Const General: cooperative and healthy appearing Nutritional Appearance: average body habitus HENWY Head: normocephalic and atraumatic Eyes General: appearance normal, both eyes and all related structures Sclera: sclerae normal Neck Neck: trachea midline Resp Effort & Inspection: normal respiratory effort and able to speak in complete sentences Cardio Rate: regular rate Rhythm: abnormal rhythm GI Palpation: soft Skin General: atrophy Neuro General: patient alert, patient awake and patient oriented x3 Cognition: normal cognition Psych Judgment: judgment good Objective Labs 10/02/22 05:35 10/02/22 05:35 Labs: Laboratory Results - last 24 hr 10/02/22 10/02/22 05:35 05:35 WBC 5.7 RBC 2.54 L Hgb 7.7 L Hct 22.3 L MCV 87.7 MCH 30.2 MCHC 34.4 RDW 14.7 Plt Count 232 Sodium 129 L Potassium 3.4 Chloride 103 Carbon Dioxide 24 BUN 6 L Creatinine 0.47 L Estimated GFR > 60 BUN/Creatinine Ratio 12.8 Glucose 90 Calcium 7.7 L PFSH Medical History Arthralgia Atrial flutter Concussion Diverticular disease Gluten enteropathy Hypertension (04/22/15) Microcytic hypochromic anemia Migraine without status migrainosus, not intractable (04/22/15) Primary osteoarthritis involving multiple joints (04/22/15) Pure hypercholesterolemia (04/22/15) Unilateral hearing loss Ventricular bigeminy (08/25/15) Surgical History S/P laminectomy with spinal fusion Status post endoscopy (06/19/13) Status post ovarian cystectomy (~1969) Family History Mother No problems noted. Social History marital status: household members: spouse education level: college occupational status: other Tobacco & Substance Use Smoking Status: Never smoker alcohol intake: current Assessment & Plan Assessment & Plan narrative: GI bleed, likely lower Anemia Plan: EGD and colonoscopy with anesthesia Time Spent With Patient Time with patient: less than 30 minutes
--- NOTE | 2022-10-02 10:27 | PM.OP.EC ---
Operative Date/Time/Diagnoses Date of procedure: 10/02/22 Time of procedure: 10:27 Pre-op diagnosis: GI bleed Post-op diagnosis: same Procedure & Clinicians Study performed: EGD and colonoscopy with anesthesia Same procedure as scheduled: No (Colonoscopy converted to flex sig. ) Indications: GI bleed Surgeon: Venice Vidales Procedure Notes Procedure in detail: Preop diagnosis: GI bleed, bright red blood per rectum Postop diagnosis same Operative procedure: EGD and flexible sigmoidoscopy under anesthesia Surgeon: Iraida Vidales MD Findings: Normal upper endoscopy with the exception of a white ring in the distal esophagus were biopsy was taken. This was seen from the retroflex position. And bleeding source to be a prolapsing rectal hemorrhoid Procedure: Patient placed in a lateral position. Endoscope was placed into the esophagus advanced to the stomach with insufflation identified the pylorus intubated into the duodenal. Insufflation extraction scope including retroflex had the above findings. Biopsy taken of the color change of the GE junction seen from the retroflexed position. We then moved to colonoscope which was inserted into the rectum after a close inspection revealed a prolapsing internal hemorrhoid as likely source of bleeding. Rectal exam shows decreased tone no masses. Scope was inserted into the rectum and a limited, flexible sigmoidoscopy was carried out mostly in part due to the inability of the scope to slide easily passed the sigmoid curve. Possibility of early diverticulitis on CT scan, and the fact she had a colonoscopy a year ago. I am confident that the bleeding source is the prolapsed hemorrhoid. Impression: Relatively normal EGD with mucosal biopsies of the GE junction, bleeding source of a prolapsed hemorrhoid and severe diverticulosis in the sigmoid colon Plan: Restart diet, high-fiber diet for home. Conservative therapy of the prolapsed hemorrhoid which is no longer bleeding. Follow-up with Dr. Amor for possible hemorrhoid banding if needed at a later date Findings: diverticulosis and internal hemorrhoids Specimen(s): other (GE junction mucosal biopsy) Complications: none Impression: color change of mucosa of GE junction from the retroflex view Prolapsed hemorrhoid as bleeding source, not active now Diverticulosis Plan: conservative treatment of hemorrhoids, follow up Zuleyma for eval of hemorrhoid banding if needed. Post-procedure Recommendations: Colonscopy in 10 years Follow up: as needed Disposition: PACU
--- NOTE | 2022-10-02 10:43 | CM.DPC ---
DCP Cont: Discussed patient during team rounds today. Hospitalist has indicated that patient is having procedure, colonoscopy, EGD this am, and could potentially discharge tomorrow. Patient resides in [place] with spouse, Ernie. P: DCP to continue to follow for any needs. Patient should be able to go home when deemed medically stable. Rylee Estrada RN/Personalization Specialist
[2022-10-02] MEDS: metroNIDAZOLE 500 MG TABLET PO (12:23)
[2022-10-02] MEDS: VALSARTAN 80 MG TABLET 40 MG PO (12:23)
[2022-10-02] MEDS: POTASSIUM CHLORIDE 20 MEQ TAB 40 MEQ PO (12:23)
[2022-10-02 14:32] LABS: Hematocrit 22.9 % (36-46); Hemoglobin 7.8 g/dL (12.0-16.0); Mean Corpuscular HGB Conc 34.2 % (30-36); Mean Corpuscular Hemoglobin 30.7 PG (26-34); Mean Corpuscular Volume 89.7 fL (80-100); Platelet Count 234 X10^3/uL (150-400); Red Blood Cell Count 2.56 X10^6/uL (4.0-5.2); Red Cell Distribution Width 14.5 % (11.6-14.8); White Blood Cell Count 4.4 X10^3/uL (4.5-11.0)
--- NOTE | 2022-10-02 20:42 | P.DS_ITS ---
History of Present Illness History of Present Illness Date Patient Seen: 10/01/22 Time Patient Seen: 00:09 Chief complaint: Nausea/headache t-0- Narrative: Per admitting provider: 77 year old with history of HTN, diverticulutis in past, thyroid disease atrial flutter post ablation not on anticoagulants, hyponatremia here for second time in 3 days for rectal bleeding. She states that she has diverticulitis on and off over the years treated with antibitics but never bleeding before. She initially had cramping with the bleeding but the cramping has resolved and the bleeding has decreased but not gone away. She was seen [address] days [address] and the CT abd revealed early diverticulitis and she was started on cipro and flagyl. She states that today she felt dizzy and had some headache and weakness. As she was still seeing some blood her made her return to be seen. Her hgb is down 3 grams and currently sits at 8. Her Na was lower than her baseline of 131-132 as well. She states she takes the nongeneric form of chlorathalidone per her beading installer as it is the only thing that has ever worked to hold down her blood albeit with lower Na. The generic form dropped her Na too much. She was given fluids in the ED and her Na is currently 128. She denies chest pain, dyspnea, fever or dysuria and actually feels better currently. The ED spoke with Dr. Vidales who stated she could eat and a colonoscopy could be performed when things settles down a bit. Discharge Providers Provider Date of admission: 09/30/22 21:41 Discharge Date: 10/02/22 Primary care physician: Oleg Blanco MD Consults: 09/30/22 22:38 Consult to Physician Routine Comment: Consulting Provider: Venice Vidales Reason for consultation: diverticulitis Has provider been notified: Yes Discharge provider: Cody Zimmerman MD Summary Hospital Course Discharge Diagnosis: 1. Hemorrhoidal bleeding 2. Diverticulitis 3. Chronic hyponatremia 4. Hypothyroidism Hospital Course: Ms. Anderson was admitted with bright red bleeding from the rectum. Her blood counts don at 7.7, but repeat on discharge was not longer dropping, and she h ad no further bloody bowel movements. She had EGD and colonoscopy done which showed likely bleeding hemorrhoid. She was discharged with medical therapy. She was referred to follow up with Dr. Amor for consideration of possible intervention on the hemorrhoid. Exam Vital Signs (past 8 hours): - 10/02/22 13:30 10/02/22 14:16 10/02/22 14:00 Pulse Rate 75 83 Respiratory Rate 17 17 Blood Pressure 132/72 105/53 L Pulse Oximetry 98 98 Oxygen Delivery Method Room Air Oxygen Delivery Method Room Air Oxygen Flow Rate 0 Narrative Exam Narrative: GEN: no acute distress CV: regular rate and rhythm PULM: clear bilterally ABD: soft, nontender Objective Labs 10/02/22 14:20 10/02/22 05:35 Labs: Laboratory Results - last 24 hr 10/02/22 10/02/22 10/02/22 05:35 05:35 14:20 WBC 5.7 4.4 L RBC 2.54 L 2.56 L Hgb 7.7 L 7.8 L Hct 22.3 L 22.9 L MCV 87.7 89.7 MCH 30.2 30.7 MCHC 34.4 34.2 RDW 14.7 14.5 Plt Count 232 234 Sodium 129 L Potassium 3.4 Chloride 103 Carbon Dioxide 24 BUN 6 L Creatinine 0.47 L Estimated GFR > 60 BUN/Creatinine Ratio 12.8 Glucose 90 Calcium 7.7 L [facility] Medical History Arthralgia Atrial flutter Concussion Diverticular disease Gluten enteropathy Hypertension (04/22/15) Microcytic hypochromic anemia Migraine without status migrainosus, not intractable (04/22/15) Primary osteoarthritis involving multiple joints (04/22/15) Pure hypercholesterolemia (04/22/15) Unilateral hearing loss Ventricular bigeminy (08/25/15) Surgical History S/P laminectomy with spinal fusion Status post endoscopy (06/19/13) Status post ovarian cystectomy (~1969) Family History Mother No problems noted. Social History marital status: household members: spouse education level: college occupational status: other Smoking Status: Never smoker alcohol intake: current Discharge Plan Discharge Plan Patient Disposition: Home Provider Discharge Comment: Ms. Anderson was admitted due to blood in her stool. She had scopes done which showed a hemorrhoid. Her bleeding stopped. She also had a likely diverticulitis and was prescribed antibiotics. She should follow up with her PCP this week to further evaluate her blood and sodium counts. She is referred to surgery for the hemorrhoid Discharge orders & Medications Prescriptions: New metronidazole 500 mg Tablet 500 mg PO BID Qty: 10 0RF ciprofloxacin HCl 250 mg Tablet 500 mg PO 0700,2100 Qty: 10 0RF Preparation H 0.25-14-74.9 % Ointment 1 applic [place] PRN PRN (Reason: Hemorrhoids) Qty: 2 0RF Continued omeprazole 20 mg capsule,delayed release(DR/EC) 20 mg PO DAILY Qty: 90 3RF Hold Instructions: Trial of 20mg Rx Instructions: Take one capsule by mouth once a day. levothyroxine 100 mcg tablet 100 mcg PO QDAY Qty: 90 3RF svnndxfrmh-xnjledzosllae-oaln 50-325-40 mg tablet 2 tab PO .QD PRN (Reason: pain) Qty: 30 0RF metoprolol succinate 25 mg tablet extended release 24 hr 12.5 mg PO BID simvastatin 20 mg tablet 20 mg PO ONCE PM Discontinued meloxicam 7.5 mg tablet 7.5 mg PO DAILY PRN (Reason: pain) Qty: 90 3RF ciprofloxacin HCl 500 mg tablet 500 mg PO BID Qty: 20 0RF metronidazole 500 mg tablet 500 mg PO Q8H Qty: 30 0RF Follow up/Referrals: Aneglica Amor MD [Physician] - 2 Weeks (bleeding hemorrhoid) Oleg Blanco MD [Primary Care Provider] - Diet/Activity/Treatments Diet: Regular Visit Report/Discharge Packet Instructions: High-Fiber Diet, DI for Hemorrhoid Banding, DI for Hemorrhoids, Ciprofloxacin, Metronidazole, DI for Diverticulosis Stand Alone Forms: Patient Portal/API, Stroke Signs & Symptoms Discharge Data Primary Care Provider: Oleg Blanco Discharges patient from system. Discharge Date/Time: 10/02/22 16:08
== END 2022-10-02 16:08 | disposition home or self-care (01) | DRG 393 ==
LOC: ED 21:39 → AC 21:41
PROVIDERS: Emergency Medicine; Internal Medicine; Surgery; Admitting Provider Internal Medicine; Emergency Provider Emergency Medicine; Family Provider Student in an Organized Health Care Education/Training Program; PCP Pediatrics; Referring Provider Emergency Medicine; Visit Provider Internal Medicine
PROC: 0DJ08ZZ Inspection of Upper Intestinal Tract, Via Natural or Artificial Opening Endoscopic (ICD-10-PCS; CPT 43235; principal; 2022-10-02 17:30)
PROC: 0DJD8ZZ Inspection of Lower Intestinal Tract, Via Natural or Artificial Opening Endoscopic (ICD-10-PCS; CPT 45378; 2022-10-02 17:30)
DX: K64.8 Other hemorrhoids (principal); K57.31 Diverticulosis of large intestine without perforation or abscess with bleeding; E87.1 Hypo-osmolality and hyponatremia; K62.5 Hemorrhage of anus and rectum; I10 Essential (primary) hypertension; E03.9 Hypothyroidism, unspecified; Z79.899 Other long term (current) drug therapy; K44.9 Diaphragmatic hernia without obstruction or gangrene
CPT/HCPCS: 36415; 43239; 45330; 74177; 80048; 80053; 81003; 83690; 85014; 85018; 85025; 85027; 85610; 85730; 86850; 86900; 86901; 93005; 96374; 99232; 99284; 99285; C9113; J1100; J2405; J2704; Q9967

== ENCOUNTER → 2022-10-05 10:58 | Outpatient (CLI) | payer MEDICARE, OTHER, SELFPAY ==
[2022-09-30 22:38] VITALS: BMI 25.2
[2022-10-05 12:33] LABS: Add Manual Diff / Slide Review NO; Basophils Absolute Auto 0 /uL (0-100); Basophils Percent Auto 0.6 % (0-2); Eosinophils Absolute Auto 400 /uL (0-450); Eosinophils Percent Auto 5.5 % (2-4); Hematocrit 25.6 % (36-46); Hemoglobin 8.8 g/dL (12.0-16.0); Lymphocytes Absolute Auto 1700 /uL (1100-4500); Lymphocytes Percent Auto 22.1 % (25-40); Mean Corpuscular HGB Conc 34.2 % (30-36); Mean Corpuscular Hemoglobin 30.7 PG (26-34); Mean Corpuscular Volume 89.6 fL (80-100); Monocytes Absolute Auto 500 /uL (0-900); Neutrophils Absolute Auto 5000 /uL (1500-7000); Neutrophils Percent Auto 64.8 % (50-75); Platelet Count 346 X10^3/uL (150-400); Red Blood Cell Count 2.85 X10^6/uL (4.0-5.2); Red Cell Distribution Width 15.1 % (11.6-14.8); White Blood Cell Count 7.8 X10^3/uL (4.5-11.0)
[2022-10-05 13:05] LABS: Alanine Aminotransferase 30 IU/L (<35); Albumin 3.5 g/dL (3.5-5.0); Albumin Globulin Ratio 1.4 (1.0-2.8); Alkaline Phosphatase 53 U/L (38-126); Aspartate Aminotransferase 33 IU/L (14-36); BUN Creatinine Ratio 15.8 (6-22); Bilirubin Total 0.3 mg/dL (0.2-1.3); Blood Urea Nitrogen 9 mg/dL (7-17); Calcium 8.5 mg/dL (8.4-10.2); Carbon Dioxide 25 mmol/L (22-32); Chloride 97 mmol/L (98-107); Estimated Glomerular Filt Rate > 60 mL/min (>60); Globulin 2.5 g/dL (1.7-4.1); Glucose 80 mg/dL (80-110); HEMOLYSIS < 15 (0-50); Potassium 4.2 mmol/L (3.4-5.1); Sodium 128 mmol/L (137-145)
[2022-10-06 17:35] LABS: Ionized Calcium 4.6 mg/dL (4.5-5.6)
== END ==
PROVIDERS: Family Provider Student in an Organized Health Care Education/Training Program; PCP Pediatrics; Referring Provider Pediatrics; Visit Provider Pediatrics
DX: D50.9 Iron deficiency anemia, unspecified (principal); E87.1 Hypo-osmolality and hyponatremia; K92.2 Gastrointestinal hemorrhage, unspecified; K57.92 Diverticulitis of intestine, part unspecified, without perforation or abscess without bleeding
CPT/HCPCS: 36415; 80053; 82330; 85025

== ENCOUNTER → 2022-11-02 09:53 | Outpatient (CLI) | payer MEDICARE, OTHER, SELFPAY ==
[2022-09-30 22:38] VITALS: BMI 25.2
[2022-11-02 10:34] LABS: Add Manual Diff / Slide Review NO; Basophils Absolute Auto 0 /uL (0-100); Basophils Percent Auto 0.8 % (0-2); Eosinophils Absolute Auto 300 /uL (0-450); Eosinophils Percent Auto 5.6 % (2-4); Hematocrit 33.6 % (36-46); Hemoglobin 11.1 g/dL (12.0-16.0); Lymphocytes Absolute Auto 1100 /uL (1100-4500); Lymphocytes Percent Auto 21.4 % (25-40); Mean Corpuscular HGB Conc 33.1 % (30-36); Mean Corpuscular Hemoglobin 29.8 PG (26-34); Mean Corpuscular Volume 89.9 fL (80-100); Monocytes Absolute Auto 400 /uL (0-900); Monocytes Percent Auto 7.5 % (3-14); Neutrophils Absolute Auto 3400 /uL (1500-7000); Neutrophils Percent Auto 64.7 % (50-75); Platelet Count 366 X10^3/uL (150-400); Red Blood Cell Count 3.74 X10^6/uL (4.0-5.2); Red Cell Distribution Width 19.8 % (11.6-14.8); White Blood Cell Count 5.2 X10^3/uL (4.5-11.0)
[2022-11-02 11:31] LABS: HEMOLYSIS < 15 (0-50); Iron 507 ug/dL (37-170)
[2022-11-02 11:41] LABS: Total Iron Binding Capacity 329 ug/dL (265-497); Transferrin 242 mg/dL (206-381)
[2022-11-02 11:44] LABS: Percent Iron Saturation 154 % (15-50)
== END ==
PROVIDERS: Family Provider Student in an Organized Health Care Education/Training Program; PCP Pediatrics; Referring Provider Pediatrics; Visit Provider Pediatrics
DX: D64.9 Anemia, unspecified (principal); E87.1 Hypo-osmolality and hyponatremia
CPT/HCPCS: 36415; 83540; 83550; 85025

== ENCOUNTER → 2022-11-07 11:53 | Outpatient (CLI) | payer MEDICARE, OTHER, SELFPAY ==
[2022-09-30 22:38] VITALS: BMI 25.2
[2022-11-07 12:48] LABS: Add Manual Diff / Slide Review NO; Basophils Absolute Auto 0 /uL (0-100); Basophils Percent Auto 0.7 % (0-2); Eosinophils Absolute Auto 300 /uL (0-450); Eosinophils Percent Auto 4.9 % (2-4); Hematocrit 33.4 % (36-46); Lymphocytes Absolute Auto 1600 /uL (1100-4500); Lymphocytes Percent Auto 27.1 % (25-40); Mean Corpuscular Hemoglobin 29.7 PG (26-34); Mean Corpuscular Volume 90.2 fL (80-100); Monocytes Absolute Auto 500 /uL (0-900); Monocytes Percent Auto 8.9 % (3-14); Neutrophils Absolute Auto 3400 /uL (1500-7000); Neutrophils Percent Auto 58.4 % (50-75); Platelet Count 314 X10^3/uL (150-400); Red Cell Distribution Width 20.5 % (11.6-14.8); White Blood Cell Count 5.9 X10^3/uL (4.5-11.0)
[2022-11-07 13:22] LABS: HEMOLYSIS < 15 (0-50); Iron 125 ug/dL (37-170)
[2022-11-07 13:30] LABS: Alanine Aminotransferase 24 IU/L (<35); Albumin Globulin Ratio 1.4 (1.0-2.8); Alkaline Phosphatase 66 U/L (38-126); Aspartate Aminotransferase 27 IU/L (14-36); BUN Creatinine Ratio 29.8 (6-22); Bilirubin Total 0.3 mg/dL (0.2-1.3); Blood Urea Nitrogen 17 mg/dL (7-17); Calcium 9.5 mg/dL (8.4-10.2); Carbon Dioxide 25 mmol/L (22-32); Chloride 99 mmol/L (98-107); Estimated Glomerular Filt Rate > 60 mL/min (>60); Globulin 2.8 g/dL (1.7-4.1); Glucose 91 mg/dL (80-110); HEMOLYSIS < 15 (0-50); Potassium 4.2 mmol/L (3.4-5.1); Sodium 132 mmol/L (137-145); Total Protein 6.8 g/dL (6.3-8.2)
[2022-11-07 13:36] LABS: Percent Iron Saturation 43 % (15-50); Total Iron Binding Capacity 288 ug/dL (265-497); Transferrin 218 mg/dL (206-381)
[2022-11-07 13:59] LABS: Ferritin 611 ng/mL (11-264)
[2022-11-07 14:46] LABS: Prothrombin Time 11.2 SECONDS (10.1-12.7)
[2022-11-07 15:28] LABS: Anisocytosis 1+
== END ==
PROVIDERS: Family Provider Student in an Organized Health Care Education/Training Program; PCP Family Medicine; Referring Provider Registered Nurse Diabetes Educator; Visit Provider Registered Nurse Diabetes Educator
DX: E83.19 Other disorders of iron metabolism (principal)
CPT/HCPCS: 36415; 80053; 82728; 83540; 83550; 85025; 85610

== ENCOUNTER → 2022-11-27 12:26 | Outpatient (CLI) | payer MEDICARE, OTHER, SELFPAY ==
[2022-09-30 22:38] VITALS: BMI 25.2
[2022-11-27 13:30] LABS: Add Manual Diff / Slide Review NO; Basophils Absolute Auto 0 /uL (0-100); Basophils Percent Auto 0.8 % (0-2); Eosinophils Absolute Auto 400 /uL (0-450); Eosinophils Percent Auto 7.5 % (2-4); Hematocrit 35.6 % (36-46); Hemoglobin 11.9 g/dL (12.0-16.0); Lymphocytes Absolute Auto 1500 /uL (1100-4500); Mean Corpuscular HGB Conc 33.5 % (30-36); Mean Corpuscular Hemoglobin 30.5 PG (26-34); Monocytes Absolute Auto 400 /uL (0-900); Monocytes Percent Auto 6.9 % (3-14); Neutrophils Absolute Auto 3200 /uL (1500-7000); Neutrophils Percent Auto 57.8 % (50-75); Platelet Count 288 X10^3/uL (150-400); Red Blood Cell Count 3.92 X10^6/uL (4.0-5.2); Red Cell Distribution Width 19.7 % (11.6-14.8); White Blood Cell Count 5.5 X10^3/uL (4.5-11.0)
[2022-11-27 13:56] LABS: HEMOLYSIS < 15 (0-50); Iron 102 ug/dL (37-170)
[2022-11-27 14:10] LABS: Percent Iron Saturation 39 % (15-50); Total Iron Binding Capacity 260 ug/dL (265-497); Transferrin 189 mg/dL (206-381)
[2022-11-27 14:31] LABS: Ferritin 175 ng/mL (11-264)
== END ==
PROVIDERS: Family Provider Student in an Organized Health Care Education/Training Program; PCP Family Medicine; Referring Provider Registered Nurse Diabetes Educator; Visit Provider Registered Nurse Diabetes Educator
DX: E83.19 Other disorders of iron metabolism (principal)
CPT/HCPCS: 36415; 82728; 83540; 83550; 85025

== ENCOUNTER → 2023-01-01 08:28 | Outpatient (CLI) | payer MEDICARE, OTHER, SELFPAY ==
[2022-09-30 22:38] VITALS: BMI 25.2
--- NOTE | 2023-01-01 | DI.MG.S_ITS ---
BILATERAL DIGITAL SCREENING MAMMOGRAM 3D/2D WITH CAD: 01/01/2023 CLINICAL: Routine screening. Comparison is made to exams dated: 12/21/2021 mammogram, 11/21/2021 mammogram, and 07/05/2020 mammogram - [facility]. There are scattered areas of fibroglandular density in both breasts (category b / 25%-50% glandular tissue). Current study was also evaluated with a Computer Aided Detection (CAD) system. No significant masses, calcifications, or other findings are seen in either breast. There has been no significant interval change. IMPRESSION: NEGATIVE There is no mammographic evidence of malignancy. A 1 year screening mammogram is recommended. Based on the Tyrer Cuzick model (a risk assessment model) the patient's lifetime risk is 3.3% and her 10 year risk is 0.0%. According to the ACR, ACS, and NCCN guidelines, an annual breast MRI exam along with mammogram is recommended if the patient's lifetime risk is 20% or greater. This exam was interpreted at Station ID: [id number]. NOTE: For mammograms, a report in lay terms will be sent to the patient. Approximately 15% of breast malignancies will not be visualized mammographically. In the management of a palpable breast mass, a negative mammogram must not discourage biopsy of a clinically suspicious lesion. Electronically Signed By: Robi villegas/cheryl:01/01/2023 13:00:49 letter sent: Normal Exam ACR BI-RADS Category 1: Negative 3341F
== END ==
PROVIDERS: Family Provider Student in an Organized Health Care Education/Training Program; PCP Family Medicine; Referring Provider Family Medicine; Visit Provider Family Medicine
DX: Z12.31 Encounter for screening mammogram for malignant neoplasm of breast (principal)
CPT/HCPCS: 77063; 77067

== ENCOUNTER → 2023-02-07 11:30 | Outpatient (CLI) | payer MEDICARE, OTHER, SELFPAY ==
[2022-09-30 22:38] VITALS: BMI 25.2
[2023-02-07 12:24] LABS: Add Manual Diff / Slide Review NO; Basophils Absolute Auto 0 /uL (0-100); Basophils Percent Auto 0.6 % (0-2); Eosinophils Absolute Auto 300 /uL (0-450); Eosinophils Percent Auto 4.3 % (2-4); Hematocrit 33.7 % (36-46); Hemoglobin 11.3 g/dL (12.0-16.0); Lymphocytes Absolute Auto 1600 /uL (1100-4500); Mean Corpuscular HGB Conc 33.5 % (30-36); Mean Corpuscular Hemoglobin 30.8 PG (26-34); Mean Corpuscular Volume 92.1 fL (80-100); Monocytes Absolute Auto 500 /uL (0-900); Monocytes Percent Auto 8.6 % (3-14); Neutrophils Absolute Auto 3700 /uL (1500-7000); Neutrophils Percent Auto 60.5 % (50-75); Platelet Count 267 X10^3/uL (150-400); Red Blood Cell Count 3.66 X10^6/uL (4.0-5.2); Red Cell Distribution Width 13.7 % (11.6-14.8); White Blood Cell Count 6.1 X10^3/uL (4.5-11.0)
== END ==
PROVIDERS: Family Provider Student in an Organized Health Care Education/Training Program; PCP Family Medicine; Referring Provider Family Medicine; Visit Provider Family Medicine
DX: D50.9 Iron deficiency anemia, unspecified (principal)
CPT/HCPCS: 85025

== ENCOUNTER → 2023-02-19 08:12 | Outpatient (CLI) | payer MEDICARE, OTHER, SELFPAY ==
[2022-09-30 22:38] VITALS: BMI 25.2
[2023-02-19 09:39] LABS: Add Manual Diff / Slide Review NO; Basophils Absolute Auto 0 /uL (0-100); Basophils Percent Auto 0.8 % (0-2); Eosinophils Absolute Auto 300 /uL (0-450); Hematocrit 34.7 % (36-46); Hemoglobin 11.8 g/dL (12.0-16.0); Lymphocytes Absolute Auto 1600 /uL (1100-4500); Lymphocytes Percent Auto 25.6 % (25-40); Mean Corpuscular HGB Conc 33.9 % (30-36); Mean Corpuscular Hemoglobin 31.7 PG (26-34); Mean Corpuscular Volume 93.5 fL (80-100); Monocytes Absolute Auto 500 /uL (0-900); Monocytes Percent Auto 7.2 % (3-14); Neutrophils Absolute Auto 3800 /uL (1500-7000); Neutrophils Percent Auto 61.4 % (50-75); Platelet Count 305 X10^3/uL (150-400); Red Blood Cell Count 3.72 X10^6/uL (4.0-5.2); White Blood Cell Count 6.3 X10^3/uL (4.5-11.0)
[2023-02-19 09:47] LABS: Reticulocyte Count, Percent 2.5 % (1.1-2.6)
[2023-02-19 09:53] LABS: Alanine Aminotransferase 20 IU/L (<35); Albumin 3.9 g/dL (3.5-5.0); Albumin Globulin Ratio 1.2 (1.0-2.8); Alkaline Phosphatase 55 U/L (38-126); Aspartate Aminotransferase 29 IU/L (14-36); BUN Creatinine Ratio 24.6 (6-22); Bilirubin Total 0.6 mg/dL (0.2-1.3); Blood Urea Nitrogen 14 mg/dL (7-17); Calcium 9.4 mg/dL (8.4-10.2); Carbon Dioxide 27 mmol/L (22-32); Chloride 99 mmol/L (98-107); Cholesterol 189 mg/dL (140-199); Estimated Glomerular Filt Rate > 60 mL/min (>60); Globulin 3.2 g/dL (1.7-4.1); Glucose 94 mg/dL (80-110); HDL Cholesterol 86 mg/dL (40-60); HEMOLYSIS < 15 (0-50); LDL Cholesterol Calculated 85 mg/dL (<100); Sodium 131 mmol/L (137-145); Total Protein 7.1 g/dL (6.3-8.2); Triglycerides 88 mg/dL (35-150)
[2023-02-19 09:54] LABS: HEMOLYSIS < 15 (0-50); Iron 69 ug/dL (37-170)
[2023-02-19 10:06] LABS: Percent Iron Saturation 26 % (15-50); Total Iron Binding Capacity 265 ug/dL (265-497); Transferrin 233 mg/dL (206-381)
[2023-02-19 10:25] LABS: Ferritin 29 ng/mL (11-264)
[2023-02-19 10:26] LABS: Thyroid Stimulating Hormone 1.71 uIU/mL (0.47-4.68)
== END ==
PROVIDERS: Family Provider Student in an Organized Health Care Education/Training Program; PCP Family Medicine; Referring Provider Family Medicine; Visit Provider Family Medicine
DX: E78.00 Pure hypercholesterolemia, unspecified (principal); E03.9 Hypothyroidism, unspecified; E87.1 Hypo-osmolality and hyponatremia; M81.0 Age-related osteoporosis without current pathological fracture
CPT/HCPCS: 36415; 80053; 80061; 82728; 83540; 83550; 84443; 85025; 85045

== ENCOUNTER → 2023-04-23 12:11 | Outpatient (CLI) | payer MEDICARE, OTHER, SELFPAY ==
[2022-09-30 22:38] VITALS: BMI 25.2
[2023-04-23 13:05] LABS: Alanine Aminotransferase 24 IU/L (<35); Albumin 4.3 g/dL (3.5-5.0); Albumin Globulin Ratio 1.3 (1.0-2.8); Alkaline Phosphatase 61 U/L (38-126); Aspartate Aminotransferase 32 IU/L (14-36); BUN Creatinine Ratio 21.7 (6-22); Bilirubin Total 0.4 mg/dL (0.2-1.3); Blood Urea Nitrogen 15 mg/dL (7-17); Calcium 9.3 mg/dL (8.4-10.2); Carbon Dioxide 25 mmol/L (22-32); Chloride 97 mmol/L (98-107); Estimated Glomerular Filt Rate > 60 mL/min (>60); Globulin 3.4 g/dL (1.7-4.1); Glucose 100 mg/dL (80-110); HEMOLYSIS < 15 (0-50); Potassium 4.1 mmol/L (3.4-5.1); Sodium 130 mmol/L (137-145); Total Protein 7.7 g/dL (6.3-8.2)
[2023-04-23 13:16] LABS: HEMOLYSIS < 15 (0-50); Iron 62 ug/dL (37-170)
[2023-04-23 13:28] LABS: Percent Iron Saturation 22 % (15-50); Total Iron Binding Capacity 279 ug/dL (265-497); Transferrin 229 mg/dL (206-381)
== END ==
LOC: LAB 12:15
PROVIDERS: Family Provider Student in an Organized Health Care Education/Training Program; PCP Family Medicine; Referring Provider Family Medicine; Visit Provider Family Medicine
DX: E87.1 Hypo-osmolality and hyponatremia (principal); D50.9 Iron deficiency anemia, unspecified
CPT/HCPCS: 36415; 80053; 83540; 83550

== ENCOUNTER → 2023-05-01 13:22 | Outpatient (CLI) | payer MEDICARE, OTHER, SELFPAY ==
[2022-09-30 22:38] VITALS: BMI 25.2
[2023-05-01 14:24] LABS: Alanine Aminotransferase 19 IU/L (<35); Albumin 4.2 g/dL (3.5-5.0); Albumin Globulin Ratio 1.2 (1.0-2.8); Alkaline Phosphatase 48 U/L (38-126); Aspartate Aminotransferase 27 IU/L (14-36); BUN Creatinine Ratio 38.9 (6-22); Bilirubin Total 0.4 mg/dL (0.2-1.3); Blood Urea Nitrogen 21 mg/dL (7-17); Calcium 9.8 mg/dL (8.4-10.2); Carbon Dioxide 27 mmol/L (22-32); Chloride 100 mmol/L (98-107); Estimated Glomerular Filt Rate > 60 mL/min (>60); Globulin 3.4 g/dL (1.7-4.1); Glucose 106 mg/dL (80-110); HEMOLYSIS < 15 (0-50); Potassium 4.8 mmol/L (3.4-5.1); Sodium 131 mmol/L (137-145); Total Protein 7.6 g/dL (6.3-8.2)
== END ==
PROVIDERS: Family Provider Student in an Organized Health Care Education/Training Program; PCP Family Medicine; Referring Provider Family Medicine; Visit Provider Family Medicine
DX: E87.1 Hypo-osmolality and hyponatremia (principal); R47.01 Aphasia; G40.409 Other generalized epilepsy and epileptic syndromes, not intractable, without status epilepticus
CPT/HCPCS: 36415; 80053

== ENCOUNTER → 2023-07-10 14:21 | Outpatient (CLI) | payer MEDICARE, OTHER, SELFPAY ==
[2022-09-30 22:38] VITALS: BMI 25.2
--- NOTE | 2023-07-10 14:23 | DI.RAD.S_ITS ---
PROCEDURE: XR KNEE RT 3V INDICATIONS: bilateral knee pain TECHNIQUE: 3 views of the knee were acquired. COMPARISON: None. FINDINGS: Bones: No fractures or dislocations. No suspicious bony lesions. Moderate to severe tricompartmental arthritic changes present. Significant lateral periarticular osteophytes are present. Minimal lateral patellar subluxation. Soft tissues: Mild joint effusion. No suspicious soft tissue calcifications. IMPRESSION: Moderate to severe tricompartmental arthritic change. Dictated by: Janette Barnes M.D. on 07/10/2023 at 17:41 Approved by: Janette Barnes M.D. on 07/10/2023 at 17:42
--- NOTE | 2023-07-10 14:23 | DI.RAD.S_ITS ---
PROCEDURE: XR KNEE LT 3V INDICATIONS: bilateral knee pain TECHNIQUE: 3 views of the knee were acquired. COMPARISON: None. FINDINGS: Bones: No fractures or dislocations. No suspicious bony lesions. Moderate to severe tricompartmental arthritic change most severe laterally. Periarticular osteophytes are present. No erosions. Soft tissues: Mild joint effusion. No suspicious soft tissue calcifications. Chondrocalcinosis is present. IMPRESSION: Moderate to severe tricompartmental arthritic changes with periarticular osteophytes and chondrocalcinosis. Dictated by: Janette Barnes M.D. on 07/10/2023 at 17:40 Approved by: Janette Barens M.D. on 07/10/2023 at 17:41
[2023-07-10 15:48] LABS: Sodium 132 mmol/L (137-145)
== END ==
PROVIDERS: Family Provider Student in an Organized Health Care Education/Training Program; PCP Family Medicine; Referring Provider Family Medicine; Visit Provider Family Medicine
DX: M11.262 Other chondrocalcinosis, left knee (principal); M25.762 Osteophyte, left knee; M25.761 Osteophyte, right knee; M25.561 Pain in right knee; M25.562 Pain in left knee; E87.1 Hypo-osmolality and hyponatremia; I10 Essential (primary) hypertension; Z79.899 Other long term (current) drug therapy
CPT/HCPCS: 36415; 73562; 84295

== ENCOUNTER → 2023-11-13 11:52 | Outpatient (CLI) | payer MEDICARE, OTHER, SELFPAY ==
[2022-09-30 22:38] VITALS: BMI 25.2
[2023-11-13 13:55] LABS: BUN Creatinine Ratio 31.7 (6-22); Blood Urea Nitrogen 19 mg/dL (7-17); Calcium 9.2 mg/dL (8.4-10.2); Carbon Dioxide 28 mmol/L (22-32); Chloride 98 mmol/L (98-107); Estimated Glomerular Filt Rate > 60 mL/min (>60); Glucose 101 mg/dL (80-110); HEMOLYSIS < 15 (0-50); Potassium 4.3 mmol/L (3.4-5.1); Sodium 133 mmol/L (137-145)
[2023-11-13 13:58] LABS: NT-proBNP (BNP-Adult 18+) 1620 pg/mL (<450)
== END ==
PROVIDERS: Family Provider Student in an Organized Health Care Education/Training Program; PCP Family Medicine; Referring Provider Internal Medicine Cardiovascular Disease; Visit Provider Internal Medicine Cardiovascular Disease
DX: R06.02 Shortness of breath (principal); I10 Essential (primary) hypertension
CPT/HCPCS: 36415; 80048; 82088; 83835; 83880

== ENCOUNTER → 2023-11-22 11:35 | Outpatient (CLI) | payer MEDICARE, OTHER, SELFPAY ==
[2022-09-30 22:38] VITALS: BMI 25.2
[2023-11-22 13:23] LABS: Free T4, Direct Thyroxine 1.51 ng/dL (0.78-2.19)
[2023-11-22 13:36] LABS: Thyroid Stimulating Hormone 2.39 uIU/mL (0.47-4.68)
== END ==
PROVIDERS: Family Provider Student in an Organized Health Care Education/Training Program; PCP Family Medicine; Referring Provider Family Medicine; Visit Provider Family Medicine
DX: I10 Essential (primary) hypertension (principal); E78.00 Pure hypercholesterolemia, unspecified; E03.9 Hypothyroidism, unspecified; M25.562 Pain in left knee; M25.561 Pain in right knee
CPT/HCPCS: 36415; 84439; 84443

== ENCOUNTER → 2024-02-18 09:48 | Outpatient (CLI) | payer MEDICARE, OTHER, SELFPAY ==
[2022-09-30 22:38] VITALS: BMI 25.2
[2024-02-18 11:07] LABS: Add Manual Diff / Slide Review NO; Basophils Absolute Auto 0 /uL (0-100); Basophils Percent Auto 0.7 % (0-2); Eosinophils Absolute Auto 500 /uL (0-450); Eosinophils Percent Auto 8.1 % (2-4); Hematocrit 33.9 % (36-46); Hemoglobin 11.4 g/dL (12.0-16.0); Lymphocytes Absolute Auto 1300 /uL (1100-4500); Lymphocytes Percent Auto 21.2 % (25-40); Mean Corpuscular HGB Conc 33.5 % (30-36); Mean Corpuscular Hemoglobin 30.2 PG (26-34); Mean Corpuscular Volume 90.1 fL (80-100); Monocytes Absolute Auto 400 /uL (0-900); Monocytes Percent Auto 7.2 % (3-14); Neutrophils Absolute Auto 3700 /uL (1500-7000); Neutrophils Percent Auto 62.8 % (50-75); Platelet Count 291 X10^3/uL (150-400); Red Blood Cell Count 3.76 X10^6/uL (4.0-5.2); Red Cell Distribution Width 14.7 % (11.6-14.8); White Blood Cell Count 5.9 X10^3/uL (4.5-11.0)
[2024-02-18 11:36] LABS: HEMOLYSIS < 15 (0-50); Iron 80 ug/dL (37-170)
[2024-02-18 11:39] LABS: Alanine Aminotransferase 22 IU/L (<35); Albumin 3.8 g/dL (3.5-5.0); Albumin Globulin Ratio 1.5 (1.0-2.8); Alkaline Phosphatase 82 U/L (38-126); Aspartate Aminotransferase 31 IU/L (14-36); BUN Creatinine Ratio 30.5 (6-22); Bilirubin Total 0.6 mg/dL (0.2-1.3); Blood Urea Nitrogen 18 mg/dL (7-17); Calcium 9.2 mg/dL (8.4-10.2); Carbon Dioxide 24 mmol/L (22-32); Chloride 103 mmol/L (98-107); Estimated Glomerular Filt Rate > 60 mL/min (>60); Globulin 2.6 g/dL (1.7-4.1); Glucose 95 mg/dL (80-110); HEMOLYSIS < 15 (0-50); Magnesium 1.7 mg/dL (1.6-2.3); Potassium 4.6 mmol/L (3.4-5.1); Sodium 133 mmol/L (137-145); Total Protein 6.4 g/dL (6.3-8.2)
[2024-02-18 11:47] LABS: Percent Iron Saturation 28 % (15-50); Total Iron Binding Capacity 284 ug/dL (265-497); Transferrin 266 mg/dL (206-381)
[2024-02-18 11:52] LABS: Free T3, Triiodothyronine Free 3.36 pg/mL (2.77-5.27); Free T4, Direct Thyroxine 1.75 ng/dL (0.78-2.19)
[2024-02-18 12:05] LABS: Thyroid Stimulating Hormone 1.14 uIU/mL (0.47-4.68)
[2024-02-18 13:49] LABS: Vitamin B12 676 pg/mL (239-931)
== END ==
PROVIDERS: Family Provider Student in an Organized Health Care Education/Training Program; PCP Family Medicine; Referring Provider Family Medicine; Visit Provider Family Medicine
DX: I48.91 Unspecified atrial fibrillation (principal); I50.9 Heart failure, unspecified; I11.0 Hypertensive heart disease with heart failure
CPT/HCPCS: 36415; 80053; 82607; 83540; 83550; 83735; 84439; 84443; 84481; 85025

== ENCOUNTER → 2024-04-15 17:17 | Outpatient (CLI) | payer MEDICARE, OTHER, SELFPAY ==
[2022-09-30 22:38] VITALS: BMI 25.2
[2024-04-15 17:43] LABS: Appearance Urine UA SL CLOUDY; Bilirubin Urine UA NEGATIVE (NEGATIVE); Color Urine UA YELLOW; Glucose Urine UA NEGATIVE (Negative); Ketones Urine UA NEGATIVE (NEGATIVE); Leukocyte Esterase Urine UA 3+ (NEGATIVE); Nitrite Urine UA POSITIVE (Negative); Occult Blood Urine UA NEGATIVE (Negative); Protein Urine UA TRACE (Negative)
[2024-04-15 17:44] LABS: pH Urine UA 7.5 (4.5-8.0)
[2024-04-15 17:49] LABS: RBC Urine 0-1/HPF (0-5/HPF); Urine Volume 10mL (spun)
[2024-04-15 17:50] LABS: Bacteria Urine Many (>30); Culture Indicated Urine Specimen Cultured; Squamous Epithelial Cell Urine 0-1 /HPF (0-5/HPF); WBC Urine 10-30/HPF (0-5/HPF)
[2024-04-15 18:09] LABS: Add Manual Diff / Slide Review NO; Basophils Absolute Auto 100 /uL (0-100); Basophils Percent Auto 0.6 % (0-2); Eosinophils Absolute Auto 600 /uL (0-450); Eosinophils Percent Auto 6.4 % (2-4); Hematocrit 30.7 % (36-46); Hemoglobin 10.2 g/dL (12.0-16.0); Lymphocytes Absolute Auto 1400 /uL (1100-4500); Lymphocytes Percent Auto 14.9 % (25-40); Mean Corpuscular HGB Conc 33.3 % (30-36); Mean Corpuscular Hemoglobin 29.5 PG (26-34); Mean Corpuscular Volume 88.5 fL (80-100); Monocytes Absolute Auto 1000 /uL (0-900); Monocytes Percent Auto 10.8 % (3-14); Neutrophils Absolute Auto 6500 /uL (1500-7000); Neutrophils Percent Auto 67.3 % (50-75); Platelet Count 393 X10^3/uL (150-400); Red Blood Cell Count 3.48 X10^6/uL (4.0-5.2); Red Cell Distribution Width 16.6 % (11.6-14.8); White Blood Cell Count 9.7 X10^3/uL (4.5-11.0)
[2024-04-15 18:23] LABS: HEMOLYSIS < 15 (0-50); Iron 52 ug/dL (37-170)
[2024-04-15 18:33] LABS: Percent Iron Saturation 21 % (15-50); Total Iron Binding Capacity 249 ug/dL (265-497); Transferrin 225 mg/dL (206-381)
[2024-04-15 19:13] LABS: Vitamin B12 749 pg/mL (239-931)
== END ==
LOC: LAB 17:18
PROVIDERS: Family Provider Student in an Organized Health Care Education/Training Program; PCP Family Medicine; Referring Provider Family Medicine; Visit Provider Family Medicine
DX: D64.9 Anemia, unspecified (principal); E87.1 Hypo-osmolality and hyponatremia; R30.0 Dysuria; Z86.79 Personal history of other diseases of the circulatory system
CPT/HCPCS: 36415; 81001; 82607; 83540; 83550; 85025; 87077; 87086; 87186

== ENCOUNTER → 2024-04-24 11:41 | Outpatient (CLI) | payer MEDICARE, OTHER, SELFPAY ==
[2022-09-30 22:38] VITALS: BMI 25.2
[2024-04-24 11:56] LABS: Appearance Urine UA CLEAR; Bilirubin Urine UA NEGATIVE (NEGATIVE); Color Urine UA YELLOW; Glucose Urine UA NEGATIVE (Negative); Ketones Urine UA NEGATIVE (NEGATIVE); Leukocyte Esterase Urine UA NEGATIVE (NEGATIVE); Nitrite Urine UA NEGATIVE (Negative); Occult Blood Urine UA NEGATIVE (Negative); Protein Urine UA NEGATIVE (Negative); Urobilinogen Urine UA 0.2 E.U./dL (0.2)
[2024-04-24 11:59] LABS: pH Urine UA 6.5 (4.5-8.0)
[2024-04-24 12:04] LABS: Amorphous Sediment Urine 1+; Bacteria Urine Occasional (0-1); Culture Indicated Urine Cult Not Indicated; RBC Urine None Seen (0-5/HPF); Squamous Epithelial Cell Urine 0-1 /HPF (0-5/HPF); Urine Volume 10mL (spun); WBC Urine None Seen (0-5/HPF)
== END ==
PROVIDERS: PCP Family Medicine; Referring Provider Family Medicine; Visit Provider Family Medicine
DX: E78.5 Hyperlipidemia, unspecified (principal); I10 Essential (primary) hypertension; E03.9 Hypothyroidism, unspecified; D64.9 Anemia, unspecified; N39.0 Urinary tract infection, site not specified
CPT/HCPCS: 81001

== ENCOUNTER 2024-04-28 17:47 | Emergency (ER) | payer MEDICARE, OTHER, SELFPAY ==
[2022-09-30 22:38] VITALS: BMI 25.2
[2024-04-28] VITALS (9 sets, daily range): BP systolic 115–139; BP diastolic 65–77; PULSE 73–90; RESP 12–24; TEMP 36; O2SAT 94–99; BMI 25.8
--- NOTE | 2024-04-28 18:18 | EKG_ITS ---
[address] [address] Test Date: 2024-04-28 Pat Name: Lul Anderson Department: Room: Gender: Female Management Tech: GRICELDA : 1945 Requested By: Order Number: [id number] Reading MD: Bharath Villarreal MD Measurements Intervals [place] Rate: 84 P: 39 AR: 194 QRS: -11 QRSD: 80 T: -13 QT: 352 QTc: 415 Interpretive Statements Normal sinus rhythm Inferior infarct , age undetermined Electronically Signed On 04-29-2024 6:47:01 PDT by Bharath Villarreal MD
--- NOTE | 2024-04-28 18:22 | EKG_ITS ---
[place] [id number] [place] [id number] Test Date: 2024-04-28 Pat Name: Lul Anderson Department: Room: Gender: Female Pruner: GRICELDA : 1945 Requested By: Order Number: [id number] Reading MD: Bharath Villarreal MD Measurements Intervals [place] Rate: 79 P: 37 AK: 234 QRS: -13 QRSD: 84 T: -4 QT: 362 QTc: 415 Interpretive Statements Sinus rhythm with 1st degree AV block Minimal voltage criteria for LVH, may be normal variant ( R in aVL ) Inferior infarct , age undetermined Electronically Signed On 04-29-2024 6:47:04 PDT by Bharath Villarreal MD
[2024-04-28 18:48] LABS: Add Manual Diff / Slide Review NO; Basophils Absolute Auto 100 /uL (0-100); Eosinophils Absolute Auto 400 /uL (0-450); Eosinophils Percent Auto 6.9 % (2-4); Hematocrit 26.2 % (36-46); Hemoglobin 8.7 g/dL (12.0-16.0); Lymphocytes Absolute Auto 900 /uL (1100-4500); Mean Corpuscular HGB Conc 33.1 % (30-36); Mean Corpuscular Hemoglobin 29.9 PG (26-34); Mean Corpuscular Volume 90.3 fL (80-100); Monocytes Absolute Auto 600 /uL (0-900); Monocytes Percent Auto 9.2 % (3-14); Neutrophils Absolute Auto 4400 /uL (1500-7000); Neutrophils Percent Auto 68.9 % (50-75); Platelet Count 503 X10^3/uL (150-400); Red Cell Distribution Width 16.8 % (11.6-14.8); White Blood Cell Count 6.4 X10^3/uL (4.5-11.0)
[2024-04-28 19:03] LABS: Alanine Aminotransferase 22 IU/L (<35); Albumin 3.7 g/dL (3.5-5.0); Albumin Globulin Ratio 1.3 (1.0-2.8); Alkaline Phosphatase 78 U/L (38-126); Aspartate Aminotransferase 31 IU/L (14-36); BUN Creatinine Ratio 37.2 (6-22); Bilirubin Total 0.3 mg/dL (0.2-1.3); Blood Urea Nitrogen 32 mg/dL (7-17); Calcium 9.1 mg/dL (8.4-10.2); Carbon Dioxide 22 mmol/L (22-32); Chloride 101 mmol/L (98-107); Estimated Glomerular Filt Rate > 60 mL/min (>60); Globulin 2.8 g/dL (1.7-4.1); Glucose 97 mg/dL (80-110); HEMOLYSIS < 15 (0-50); Potassium 4.3 mmol/L (3.4-5.1); Sodium 131 mmol/L (137-145); Total Protein 6.5 g/dL (6.3-8.2)
--- NOTE | 2024-04-28 20:17 | ED_ITS ---
HPI - Recheck/Abnormal Lab/Rx General Chief Complaint: Recheck/Abnormal Lab/Rx Stated Complaint: sent by [facility]wal for abn labs Time Seen by Provider: 04/28/24 20:16 Source: patient Mode of arrival: Ambulatory History of Present Illness HPI narrative: Patient is an 79-year-old female history of anemia hypothyroid hypertension presenting today at request of Cardiology for hyperkalemia potassium 5.9. She was absolutely no symptoms. She did just have knee surgery about 3 weeks ago but it sounds like she was recovering and doing well at home. She was admitted to [facility] on 04/11/2024 after syncopal episode found to be anemic after total knee arthroplasty on 04/07/2024. She reports that she did receive blood transfusions at that time but overall feeling better now. She has an appointment with Hematology tomorrow she has a repeat follow-up with Cardiology this week. Only concern was for hyperkalemia today. She has no other symptoms Related Data Home Medications Medication Instructions Recorded Confirmed simvastatin 20 mg tablet 20 mg PO ONCE PM 09/30/22 04/17/24 acetaminophen 500 mg capsule 500 mg PO Q6H PRN 04/23/23 04/17/24 furosemide 20 mg tablet See Rx Instructions PO .COMPLEX 11/21/23 04/17/24 labetalol 100 mg tablet 100 mg PO BID 11/21/23 04/17/24 losartan 50 mg tablet 50 mg PO BID 02/21/24 04/17/24 Previous Rx's Medication Instructions Recorded aspirin 81 mg tablet,delayed 81 mg PO DAILY #90 tabs 11/14/23 release (Adult Aspirin Regimen) levothyroxine 100 mcg tablet 100 mcg PO QDAY #90 tabs 02/21/24 omeprazole 20 mg capsule,delayed 20 mg PO DAILY #90 caps 02/21/24 release daejouwoez-czpxxnpkclrvt-kcgmllns 2 tab PO .QD PRN pain #30 tabs 03/19/24 50 mg-325 mg-40 mg tablet celecoxib 200 mg capsule (Celebrex) 200 mg PO BID PRN headache #180 04/17/24 caps sulfamethoxazole 800 1 tab PO BID #14 tabs 04/17/24 mg-trimethoprim 160 mg tablet (Bactrim DS) Allergies Allergy/AdvReac Type Severity Reaction Status Date / Time amlodipine AdvReac Mild Edema Verified 04/17/24 15:14 ciprofloxacin AdvReac Mild Hallucinati Verified 04/17/24 15:14 ng Aldrenat AdvReac Mild Hallucinati Uncoded 04/17/24 15:14 ng Patient History Medical History (Updated 04/28/24 @ 20:35 by Shavonne Cee DO) UTI (urinary tract infection) Acute maxillary sinusitis History of atrial fibrillation CHF (congestive heart failure) Bilateral knee pain Migraine without status migrainosus, not intractable (04/22/15) Atrial fibrillation Aphasia Hyperlipidemia Seizure disorder, grand mal Generalized anxiety disorder Hypothyroidism Hypertension (04/22/15) Pure hypercholesterolemia (04/22/15) Arthralgia Concussion Microcytic hypochromic anemia Unilateral hearing loss Gluten enteropathy Diverticular disease Ventricular bigeminy (08/25/15) Primary osteoarthritis involving multiple joints (04/22/15) Atrial flutter Surgical History (Updated 04/17/24 @ 16:10 by Delfino Linton DO) History of total left knee replacement (TKR) S/P laminectomy with spinal fusion Status post ovarian cystectomy (~1969) Status post endoscopy (06/19/13) Family History Mother No problems noted. Social History (Updated 04/26/23 @ 07:54 by Sangeetha Edwards MA) marital status: household members: spouse education level: college occupational status: other Smoking Status: Never smoker alcohol intake: current Smoking Status: Never smoker alcohol intake frequency: 0-2 drinks per day Alcohol type: wine Exam Initial Vital Signs Initial Vital Signs: Vital Signs Temperature 96.8 F L 04/28/24 17:57 Pulse Rate 90 04/28/24 17:57 Respiratory Rate 18 04/28/24 17:57 Blood Pressure 139/65 04/28/24 17:57 Pulse Oximetry 99 04/28/24 17:57 Oxygen Delivery Method Room Air 04/28/24 17:57 GENERAL: Alert 79-year-old female and in no acute distress. HEENT: Head atraumatic,EOMI, pupils reactive, face symmetric, moist mucous membranes CARDIOVASCULAR: Regular rate and rhythm without murmurs, rubs or gallops. RESPIRATORY: Breath sounds equal bilaterally, no wheezes rales or rhonchi. ABDOMEN: Soft, nontender. Normoactive bowel sounds all 4 quadrants. No guarding or rebound. EXTREMITIES: Normal range of motion, no clubbing or edema. Neurovascularly intact Incision site left knee clean dry healing well no evidence of infection NEUROLOGICAL: Alert and oriented x4.Normal gait and speech. Cranial nerves II through XII grossly intact. SKIN: Warm, dry, no laceration, no petechiae, no rashes or lesions. Course Orders Ordered: ED Orders 04/28/24 18:07 EKG-12 Lead Stat 04/28/24 18:22 EKG-12 Lead Routine EKG-12 Lead Routine 04/28/24 18:40 Complete Blood Count AUTO DIFF Stat Comprehensive Metabolic Panel Stat Vital Signs Vital signs: Vital Signs - 8 hr 04/28/24 17:57 04/28/24 18:25 04/28/24 18:28 Temperature 96.8 F L Pulse Rate 90 79 81 Respiratory Rate 18 16 Blood Pressure 139/65 Pulse Oximetry 99 96 Oxygen Delivery Method Room Air 04/28/24 18:28 04/28/24 18:30 04/28/24 18:31 Temperature Pulse Rate 80 81 Respiratory Rate 15 12 Blood Pressure 116/74 Pulse Oximetry 96 96 Oxygen Delivery Method Room Air 04/28/24 18:31 04/28/24 19:00 04/28/24 19:31 Temperature Pulse Rate 73 83 Respiratory Rate 17 24 Blood Pressure 115/68 Pulse Oximetry 94 95 Oxygen Delivery Method 04/28/24 19:31 04/28/24 20:00 04/28/24 20:00 Temperature Pulse Rate 76 Respiratory Rate 14 Blood Pressure 131/77 121/74 Pulse Oximetry 98 Oxygen Delivery Method 04/28/24 20:30 04/28/24 20:30 Temperature Pulse Rate 86 Respiratory Rate 23 Blood Pressure 139/66 Pulse Oximetry 97 Oxygen Delivery Method MDM - Recheck/Abnormal Lab/Rx Lab Data 04/28/24 18:40 04/28/24 18:40 Labs: Lab Results 04/28/24 Range/Units 18:40 WBC 6.4 (4.5-11.0) X10^3/uL RBC 2.90 L (4.0-5.2) X10^6/uL Hgb 8.7 L (12.0-16.0) g/dL Hct 26.2 L (36-46) % MCV 90.3 (80-100) fL MCH 29.9 (26-34) PG MCHC 33.1 (30-36) % RDW 16.8 H (11.6-14.8) % Plt Count 503 H (150-400) X10^3/uL Neut % (Auto) 68.9 (50-75) % Lymph % (Auto) 14.0 L (25-40) % [place] % (Auto) 9.2 (3-14) % Eos % (Auto) 6.9 H (2-4) % Baso % (Auto) 1.0 (0-2) % Neut # (Auto) 4400 (1148-9298) /uL Lymph # (Auto) 900 L (3485-1563) /uL [place] # (Auto) 600 (0-900) /uL Eos # (Auto) 400 (0-450) /uL Baso # (Auto) 100 (0-100) /uL Sodium 131 L (137-145) mmol/L Potassium 4.3 (3.4-5.1) mmol/L Chloride 101 (98-107) mmol/L Carbon Dioxide 22 (22-32) mmol/L BUN 32 H (7-17) mg/dL Creatinine 0.86 (0.52-1.04) mg/dL Estimated GFR > 60 (>60) mL/min BUN/Creatinine Ratio 37.2 H (6-22) Glucose 97 (80-110) mg/dL Calcium 9.1 (8.4-10.2) mg/dL Total Bilirubin 0.3 (0.2-1.3) mg/dL AST 31 (14-36) IU/L ALT 22 (<35) IU/L Alkaline Phosphatase 78 (38-126) U/L Total Protein 6.5 (6.3-8.2) g/dL Albumin 3.7 (3.5-5.0) g/dL Globulin 2.8 (1.7-4.1) g/dL Albumin/Globulin Ratio 1.3 (1.0-2.8) ECG Data Attestation: I personally reviewed and interpreted this ECG as follows: Interpretation: Normal sinus rhythm rate 79 TN interval 234 QRS [address] changes T-wave inversion noted in lead 3 only Q-wave noted in AVF no peaked T-waves MDM Narrative Medical decision making narrative: Patient 79-year-old female presenting to [facility] for repeat blood work found to have potassium 5.9 as an outpatient today potassium 4.3. Hemoglobin 8.7 hematocrit 26.2, previously it was 10.2/30.7 that was on April 15 Patient is more anemic today than she was even after her blood transfusion and syncopal episode. She was not symptomatic today she was follow up with Hematology. Denies any black or bloody stool no nausea vomiting dizziness lightheadedness or any symptoms. Vitals are stable. Discharge Plan Departure Patient Disposition: Home Clinical Impression: Anemia Instructions: Anemia Activity Restrictions/Additional Instructions: *You have been diagnosed with anemia *What to do: At this time your potassium is 4.3 however your hemoglobin today is 8.7 hematocrit 26.2, on April 15 it was 10.2 and 30.7 please show these numbers to your body artist tomorrow *Continue to take medications as directed *Follow up with your primary care provider in 2-3 days or call [phone] *Return to ER if you should have increasing dizziness lightheadedness chest pain shortness of or any new, worsening or concerning symptoms Prescriptions: No Action aspirin [Adult Aspirin Regimen] 81 mg tablet,delayed release (DR/EC) 81 mg PO DAILY Qty: 90 3RF labetalol 100 mg tablet 100 mg PO BID furosemide 20 mg tablet See Rx Instructions PO .COMPLEX Rx Instructions: 40mg qam alternating with 20mg qam losartan 50 mg tablet 50 mg PO BID vsbqytymae-apzeykeajucet-wagt 50-325-40 mg tablet 2 tab PO .QD PRN (Reason: pain) Qty: 30 0RF acetaminophen 500 mg capsule 500 mg PO Q6H PRN levothyroxine 100 mcg tablet 100 mcg PO QDAY Qty: 90 3RF omeprazole 20 mg capsule,delayed release(DR/EC) 20 mg PO DAILY Qty: 90 3RF Hold Instructions: Trial of 20mg Rx Instructions: Take one capsule by mouth once a day. celecoxib [Celebrex] 200 mg capsule 200 mg PO BID PRN (Reason: headache) Qty: 180 1RF sulfamethoxazole-trimethoprim [Bactrim DS] 800-160 mg tablet 1 tab PO BID Qty: 14 0RF simvastatin 20 mg tablet 20 mg PO ONCE PM Referrals: Delfino Linton, [Primary Care Provider] - Stand Alone Forms: Patient Portal/API/Survey
== END 2024-04-28 20:37 | disposition home or self-care (01) ==
PROVIDERS: Emergency Medicine; Emergency Provider Emergency Medicine; PCP Family Medicine
DX: D64.9 Anemia, unspecified (principal); R79.89 Other specified abnormal findings of blood chemistry; I44.0 Atrioventricular block, first degree
CPT/HCPCS: 36415; 80053; 85025; 93005; 93010; 99283; 99284

== ENCOUNTER → 2024-06-23 14:26 | Outpatient (CLI) | payer MEDICARE, OTHER, SELFPAY ==
[2022-09-30 22:38] VITALS: BMI 25.2
[2024-06-23 15:32] LABS: Add Manual Diff / Slide Review NO; Basophils Absolute Auto 0 /uL (0-100); Basophils Percent Auto 0.7 % (0-2); Eosinophils Absolute Auto 300 /uL (0-450); Eosinophils Percent Auto 6.2 % (2-4); Hematocrit 30.4 % (36-46); Hemoglobin 10.1 g/dL (12.0-16.0); Lymphocytes Absolute Auto 1000 /uL (1100-4500); Lymphocytes Percent Auto 18.2 % (25-40); Mean Corpuscular HGB Conc 33.2 % (30-36); Mean Corpuscular Hemoglobin 30.2 PG (26-34); Mean Corpuscular Volume 90.9 fL (80-100); Monocytes Absolute Auto 400 /uL (0-900); Neutrophils Absolute Auto 3800 /uL (1500-7000); Neutrophils Percent Auto 67.9 % (50-75); Platelet Count 337 X10^3/uL (150-400); Red Blood Cell Count 3.34 X10^6/uL (4.0-5.2); Red Cell Distribution Width 17.2 % (11.6-14.8); White Blood Cell Count 5.7 X10^3/uL (4.5-11.0)
[2024-06-23 15:48] LABS: HEMOLYSIS < 15 (0-50); Iron 29 ug/dL (37-170)
[2024-06-23 15:53] LABS: Alanine Aminotransferase 18 IU/L (<35); Albumin 3.8 g/dL (3.5-5.0); Albumin Globulin Ratio 1.7 (1.0-2.8); Alkaline Phosphatase 83 U/L (38-126); Aspartate Aminotransferase 26 IU/L (14-36); BUN Creatinine Ratio 33.3 (6-22); Bilirubin Total 0.2 mg/dL (0.2-1.3); Blood Urea Nitrogen 25 mg/dL (7-17); Carbon Dioxide 26 mmol/L (22-32); Chloride 104 mmol/L (98-107); Estimated Glomerular Filt Rate > 60 mL/min (>60); Globulin 2.2 g/dL (1.7-4.1); Glucose 117 mg/dL (70-99); HEMOLYSIS < 15 (0-50); Potassium 4.2 mmol/L (3.4-5.1); Sodium 137 mmol/L (137-145)
[2024-06-23 16:01] LABS: Percent Iron Saturation 9 % (15-50); Total Iron Binding Capacity 316 ug/dL (265-497); Transferrin 260 mg/dL (206-381)
[2024-06-23 16:38] LABS: Vitamin B12 735 pg/mL (239-931)
== END ==
PROVIDERS: PCP Family Medicine; Referring Provider Family Medicine; Visit Provider Family Medicine
DX: I10 Essential (primary) hypertension (principal); E78.5 Hyperlipidemia, unspecified; E03.9 Hypothyroidism, unspecified; D64.9 Anemia, unspecified; N39.0 Urinary tract infection, site not specified
CPT/HCPCS: 80053; 82607; 83540; 83550; 85025

== ENCOUNTER → 2024-07-03 08:50 | Outpatient (CLI) | payer MEDICARE, OTHER, SELFPAY ==
[2022-09-30 22:38] VITALS: BMI 25.2
[2024-07-03 09:14] LABS: Appearance Urine UA CLEAR; Bilirubin Urine UA 1+ (NEGATIVE); Color Urine UA YELLOW; Glucose Urine UA NEGATIVE (Negative); Ketones Urine UA TRACE (NEGATIVE); Leukocyte Esterase Urine UA TRACE (NEGATIVE); Nitrite Urine UA NEGATIVE (Negative); Occult Blood Urine UA NEGATIVE (Negative); Protein Urine UA 1+ (Negative); Specific Gravity Urine UA 1.025 (1.000-1.035)
[2024-07-03 09:26] LABS: Ictotest Urine Negative (Negative); Urine Volume 10mL (spun); pH Urine UA 6.5 (4.5-8.0)
[2024-07-03 09:27] LABS: Bacteria Urine Few (2-10); Culture Indicated Urine Specimen Cultured; RBC Urine 0-1/HPF (0-5/HPF); Squamous Epithelial Cell Urine 0-1 /HPF (0-5/HPF); WBC Urine 10-30/HPF (0-5/HPF)
== END ==
PROVIDERS: PCP Family Medicine; Referring Provider Family Medicine; Visit Provider Family Medicine
DX: R30.0 Dysuria (principal)
CPT/HCPCS: 81001; 87077; 87086; 87186

== ENCOUNTER → 2024-08-20 10:13 | Outpatient (CLI) | payer MEDICARE, OTHER, SELFPAY ==
[2022-09-30 22:38] VITALS: BMI 25.2
[2024-08-20 10:41] LABS: Add Manual Diff / Slide Review NO; Hematocrit 35.7 % (36-46); Hemoglobin 12.0 g/dL (12.0-16.0); Lymphocytes Absolute Auto 800 /uL (1100-4500); Mean Corpuscular HGB Conc 33.7 % (30-36); Mean Corpuscular Hemoglobin 30.1 PG (26-34); Mean Corpuscular Volume 89.4 fL (80-100); Platelet Count 250 X10^3/uL (150-400)
[2024-08-20 11:18] LABS: Anisocytosis 1+
[2024-08-20 11:35] LABS: HEMOLYSIS < 15 (0-50); Iron 75 ug/dL (37-170)
[2024-08-20 11:48] LABS: Percent Iron Saturation 33 % (15-50); Total Iron Binding Capacity 226 ug/dL (265-497); Transferrin 192 mg/dL (206-381)
[2024-08-20 12:07] LABS: Ferritin 349 ng/mL (11-264)
== END ==
PROVIDERS: PCP Family Medicine; Referring Provider Family Medicine; Visit Provider Family Medicine
DX: D50.9 Iron deficiency anemia, unspecified (principal)
CPT/HCPCS: 36415; 82728; 83540; 83550; 85025

== ENCOUNTER → 2024-11-04 11:29 | Outpatient (CLI) | payer MEDICARE, OTHER, SELFPAY ==
[2022-09-30 22:38] VITALS: BMI 25.2
[2024-11-04 12:09] LABS: Hematocrit 34.7 % (36-46); Hemoglobin 11.9 g/dL (12.0-16.0); Mean Corpuscular HGB Conc 34.3 % (30-36); Mean Corpuscular Hemoglobin 31.9 PG (26-34); Mean Corpuscular Volume 93.1 fL (80-100); Platelet Count 258 X10^3/uL (150-400)
[2024-11-04 12:48] LABS: HEMOLYSIS < 15 (0-50); Iron 90 ug/dL (37-170)
[2024-11-04 13:00] LABS: Percent Iron Saturation 40 % (15-50); Total Iron Binding Capacity 225 ug/dL (265-497); Transferrin 203 mg/dL (206-381)
[2024-11-04 13:07] LABS: Free T4, Direct Thyroxine 1.17 ng/dL (0.78-2.19)
[2024-11-04 13:21] LABS: Thyroid Stimulating Hormone 4.49 uIU/mL (0.47-4.68)
[2024-11-04 13:26] LABS: Ferritin 122 ng/mL (11-264)
[2024-11-04 15:12] LABS: Basophils Percent Manual 1.0 % (0-1); Eosinophils Percent Manual 5.0 % (2-4); Lymphocytes Percent Manual 24.0 % (25-45); Monocytes Percent Manual 4.0 % (2-11); Neutrophils Absolute Manual 4422 /uL (3000-5900); Segmented Neutrophils Percent 66.0 % (38-70); Total Cells Counted 100
[2024-11-04 15:13] LABS: RBC Morphology Normal Morphology
== END ==
PROVIDERS: PCP Family Medicine; Referring Provider Family Medicine; Visit Provider Family Medicine
DX: M25.561 Pain in right knee (principal); M25.562 Pain in left knee; E03.9 Hypothyroidism, unspecified; E78.00 Pure hypercholesterolemia, unspecified; G89.29 Other chronic pain; I10 Essential (primary) hypertension
CPT/HCPCS: 82728; 83540; 83550; 84439; 84443; 85025

== ENCOUNTER → 2024-11-17 15:04 | Outpatient (CLI) | payer MEDICARE, OTHER, SELFPAY ==
[2022-09-30 22:38] VITALS: BMI 25.2
--- NOTE | 2024-11-17 15:05 | DI.MG.S_ITS ---
MM screening mammo BI: 11/17/2024. BI-RADS: 1 CLINICAL: 79-year old female for bilateral screening mammogram. Tyrer-Cuzick lifetime risk of 1.2%. No personal or first-degree family history of breast cancer. PRIOR EXAMS 01/01/2023, 12/21/2021, 11/21/2021, 07/05/2020. MAMMOGRAPHY TECHNIQUE: 2D and 3D (tomosynthesis) digital mammographic views obtained, with additional images as needed for full coverage. Current study was also evaluated with a Computer Aided Detection (CAD) system. DENSITY B. There are scattered areas of fibroglandular density. MAMMOGRAPHY FINDINGS Bilateral: No suspicious mass, asymmetry, microcalcification, or other abnormality seen. No significant change from comparison. IMPRESSION: * No evidence of malignancy. RECOMMENDATIONS Bilateral * Annual screening mammography. OVERALL ASSESSMENT CATEGORY BI-RADS-1: Negative. The [employer] recommends annual screening mammography beginning at age 40 for women with average risk of breast cancer. ELECTRONICALLY SIGNED: Mickey Beltran M.D. on 11/18/2024 at 11:30:02 AM PT Interpreting Station ID: [id number]
== END ==
LOC: MAMMO 15:05
PROVIDERS: PCP Family Medicine; Referring Provider Family Medicine; Visit Provider Family Medicine
DX: Z12.31 Encounter for screening mammogram for malignant neoplasm of breast (principal)
CPT/HCPCS: 77063; 77067

== ENCOUNTER → 2025-02-02 13:45 | Outpatient (CLI) | payer MEDICARE, OTHER, SELFPAY ==
[2024-11-20 13:17] VITALS: BMI 25.2
[2025-02-02 14:28] LABS: Add Manual Diff / Slide Review NO; Hematocrit 31.4 % (36-46); Hemoglobin 10.7 g/dL (12.0-16.0); Lymphocytes Absolute Auto 1100 /uL (1100-4500); Mean Corpuscular HGB Conc 34.0 % (30-36); Mean Corpuscular Hemoglobin 31.1 PG (26-34); Mean Corpuscular Volume 91.5 fL (80-100); Platelet Count 258 X10^3/uL (150-400)
[2025-02-02 15:11] LABS: HEMOLYSIS < 15 (0-50); Iron 67 ug/dL (37-170)
[2025-02-02 15:17] LABS: Alanine Aminotransferase 16 IU/L (<35); Albumin 3.9 g/dL (3.5-5.0); Albumin Globulin Ratio 1.6 (1.0-2.8); Alkaline Phosphatase 72 U/L (38-126); Blood Urea Nitrogen 24 mg/dL (7-17); Calcium 9.1 mg/dL (8.4-10.2); Carbon Dioxide 25 mmol/L (22-32); Chloride 105 mmol/L (98-107); Estimated Glomerular Filt Rate > 60 mL/min (>60); Globulin 2.5 g/dL (1.7-4.1); Glucose 98 mg/dL (70-99); HEMOLYSIS < 15 (0-50); Potassium 4.0 mmol/L (3.4-5.1); Sodium 137 mmol/L (137-145); Total Protein 6.4 g/dL (6.3-8.2)
[2025-02-02 15:25] LABS: Percent Iron Saturation 25 % (15-50); Total Iron Binding Capacity 265 ug/dL (265-497); Transferrin 230 mg/dL (206-381)
[2025-02-02 15:29] LABS: Free T4, Direct Thyroxine 1.22 ng/dL (0.78-2.19)
[2025-02-02 15:42] LABS: Thyroid Stimulating Hormone 2.18 uIU/mL (0.47-4.68)
[2025-02-02 15:51] LABS: Ferritin 34 ng/mL (11-264)
[2025-02-02 16:03] LABS: Vitamin B12 662 pg/mL (239-931)
== END ==
PROVIDERS: PCP Family Medicine; Referring Provider Family Medicine; Visit Provider Family Medicine
DX: D50.9 Iron deficiency anemia, unspecified (principal); I10 Essential (primary) hypertension; E03.9 Hypothyroidism, unspecified
CPT/HCPCS: 36415; 80053; 82607; 82728; 83540; 83550; 84439; 84443; 85025